=== PATIENT | female | born 1985 | race Caucasian/White ===

== ENCOUNTER 2019-01-28 10:21 | Emergency (ER) | payer OTHER, MEDICAID, SELFPAY ==
[2019-01-28 10:21] VITALS: BP 123/69; PULSE 78; RESP 18; TEMP 37.1; O2SAT 97; BMI 21.3
[2019-01-28 10:30] VITALS: BP 114/75; PULSE 80; RESP 16; O2SAT 97
--- NOTE | 2019-01-28 10:37 | ED.HA ---
HPI - Headache General Chief Complaint: Headache Stated Complaint: Migraine x7 days Time Seen by Provider: 01/28/19 10:35 Source: patient Mode of arrival: ambulatory Limitations: no limitations History of Present Illness HPI Narrative: This is a 33-year-old female comes to the emergency department with complaint of migraine. Patient states that she has had 1 for about 7 days. She tried Imitrex, cold packs, Tylenol as well as ibuprofen without any improvement. Patient states she gets several yearly. She does not see a neurologist. She states her typical pattern, she does have some vomiting with it. She does have some photophobia. She denies any fevers. No weakness, numbness or tingling. No difficulty with movement. Patient denies any chest pain or shortness of breath. No issues with bowel movements or urination. She denies any other medical issues. Denies any surgeries. States she is allergic to Zofran it makes her vomit more as well as sulfa. Related Data Home Medications Medication Instructions Recorded Confirmed buprenorphine-naloxone 1 film SUBLINGUAL BID 01/28/19 01/28/19 gabapentin 300 mg PO TID 01/28/19 01/28/19 hydroxyzine pamoate 25 mg PO BID 01/28/19 01/28/19 mirtazapine 15 mg PO DAILY 01/28/19 01/28/19 Allergies Allergy/AdvReac Type Severity Reaction Status Date / Time ondansetron [From Zofran] Allergy Verified 01/28/19 10:28 Sulfa (Sulfonamide Allergy Verified 01/28/19 10:28 Antibiotics) Review of Systems Review of Systems ROS Unobtainable: All systems reviewed & are unremarkable except as noted in HPI and below Constitutional Denies chills, Denies fever(s), Reports headache(s) and Denies weakness Eyes Denies change in vision and Reports photophobia ENT Ears, Nose, Mouth, and Throat: Reports headache(s) and Denies neck pain Cardiovascular Denies chest pain and Denies dyspnea Respiratory Denies dyspnea Gastrointestinal Gastrointestinal: Denies abdominal pain, Denies change in bowel habits, Denies diarrhea, Reports nausea and Reports vomiting Genitourinary Denies hematuria, Denies urinary frequency, Denies dysuria, Denies flank pain, Denies urinary incontinence and Denies urinary urgency Musculoskeletal Reports as per HPI, Denies abnormal gait, Denies limited range of motion, Denies muscle weakness, Denies neck pain, Denies numbness and Denies tingling Neurologic Reports as per HPI, Denies abnormal gait, Denies confusion, Reports headache(s), Denies focal weakness, Denies numbness, Denies tingling and Denies weakness Psychiatric Denies confusion [facility] Medical History (Updated 01/28/19 @ 11:01 by No Friedman DO) Migraines (Chronic) Social History Smoking Status: Current every day smoker Social History Smoking Status: Current every day smoker Exam Narrative Exam Narrative: GEN: well nourished, well appearing female, alert and oriented x 3, patient appears to be in mild distress. HEENT: Atraumatic, pupils are equal round reactive, extraocular movements are intact, nares are clear, TMs are clear with no fluid, there is no conjunctival pallor. Throat is clear without any exudates, erythema, tonsillar enlargement or uvular deviation HEART: Regular rate and rhythm without murmur, clicks, rubs. LUNGS:Lungs clear to auscultation, no wheezes, rales, crackles, chest moves symmetrically ABD:bowel sounds normal, soft, non-tender, no guarding, rebound, rigidity, no masses noted, no hepatosplenomegaly MSCL: Non-tender, no muscle atrophy, muscles strength 5/5 upper and lower extremities, full range of motion, normal gait NEURO:CN 2-12 intact, sensation normal, reflexes 2/4 upper lower extremities. Initial Vital Signs Initial Vital Signs: Vital Signs Temperature 98.7 F 01/28/19 10:21 Pulse Rate 78 01/28/19 10:21 Respiratory Rate 18 01/28/19 10:21 Blood Pressure 123/69 01/28/19 10:21 Pulse Oximetry 97 01/28/19 10:21 Course Orders Ordered: Discontinued Medications Sodium Chloride (Normal Saline 0.9%) 1,000 mls @ 1,000 mls/hr IV BOLUS ONE Stop: 01/28/19 11:51 Last Infusion: 01/28/19 12:00 Dose: 0 mls/hr Admin: 01/28/19 11:22 Dose: 1,000 mls/hr Ketorolac Tromethamine (Toradol) 30 mg IV NOW ONE Stop: 01/28/19 10:53 Last Admin: 01/28/19 11:24 Dose: 30 mg Metoclopramide HCl (Reglan) 10 mg IV NOW ONE Stop: 01/28/19 10:53 Last Admin: 01/28/19 11:24 Dose: 10 mg Vital Signs - 8 hr 01/28/19 10:21 01/28/19 10:30 01/28/19 11:00 Temperature 98.7 F Pulse Rate 78 80 80 Respiratory Rate 18 16 16 Blood Pressure 123/69 Blood Pressure [Left Arm] 114/75 109/73 Pulse Oximetry 97 97 97 01/28/19 11:08 01/28/19 12:10 Temperature Pulse Rate 73 70 Respiratory Rate 17 16 Blood Pressure 111/79 Blood Pressure [Left Arm] 109/73 Pulse Oximetry 98 100 MDM - Headache Lab Data Point of Care Testing Test Results Negative Urine Dip Bedside Urine Glucose Negative Bedside Urine Bilirubin - Negative Bedside Urine Ketone - Negative Urine Specific Eros 1.025 Bedside Urine Occult Blood - Negative Bedside Urine pH 6 Bedside Urine Protein - Negative Bedside Urine Urobilinogen - Negative Bedside Urine Nitrite - Negative Bedside Urine Leukocytes - Negative Esterase MDM Narrative Medical decision making narrative: Patient requesting to d/c home after medications so that she can go. She has not received medications yet. Discharge Plan Departure Patient Disposition: Home Clinical Impression: Migraine Discharge Date/Time: 01/28/19 12:00 Interventions: ED Discharge Assessment Last Done: 01/28/19 12:10 Instructions: DI for Migraine Activity Restrictions/Additional Instructions: Follow up with primary care physician in the next 2-3 days for recheck. Continue home medications as needed. You may continue home medications as prescribed. Return to the emergency department for fevers greater than 100.4 F, rapidly worsening symptoms, passing out, new vision changes, new weakness, numbness, inability to walk, use her extremities or other new or concerning symptoms. Prescriptions: No Action gabapentin 300 mg capsule 300 mg PO TID RF: 0 mirtazapine 15 mg tablet 15 mg PO DAILY RF: 0 hydroxyzine pamoate 25 mg capsule 25 mg PO BID RF: 0 buprenorphine-naloxone 8-2 mg film 1 film sublingual BID RF: 0
[2019-01-28 11:00] VITALS: BP 109/73; PULSE 80; RESP 16; O2SAT 97
[2019-01-28 11:08] VITALS: BP 109/73; PULSE 73; RESP 17; O2SAT 98
[2019-01-28] MEDS: SODIUM CHLORIDE 0.9% 1,000 ML 1000 ML IV (11:22)
[2019-01-28] MEDS: KETOROLAC 60 MG/2 ML VIAL 30 MG IV (11:24)
[2019-01-28] MEDS: METOCLOPRAMIDE 10 MG/2 ML INJ IV (11:24)
--- NOTE | 2019-01-28 11:27 | PC.NURSE ---
getting all the fluids. dr buchanan aware.
[2019-01-28 12:10] VITALS: BP 111/79; PULSE 70; RESP 16; O2SAT 100
== END 2019-01-28 12:00 | disposition home or self-care (01) ==
PROVIDERS: Emergency Provider Emergency Medicine
DX: G43.909 Migraine, unspecified, not intractable, without status migrainosus (principal)
CPT/HCPCS: 81003; 81025; 96361; 96374; 96375; 99283; 99284; J1885; J2765

== ENCOUNTER 2019-02-25 15:47 | Emergency (ER) | payer OTHER, MEDICAID, SELFPAY ==
[2019-02-25 15:53] VITALS: BP 137/78; PULSE 96; RESP 14; TEMP 36.7; O2SAT 96; BMI 21.2
--- NOTE | 2019-02-25 16:24 | PC.NURSE ---
pt reports she was lifting heavy at work yesterday, woke up this morning with stiff back. took motrin 2hrs [employer] without relief. pt appears well. resting in bed. warm pack applied. watching movie on phone waiting for provider assessment.
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
[2019-02-25] MEDS: KETOROLAC 60 MG/2 ML VIAL IM (18:05)
[2019-02-25] MEDS: CYCLOBENZAPRINE 10 MG TABLET PO (18:05)
--- NOTE | 2019-02-25 18:05 | PC.NURSE ---
Pt OOB to BR with steady gait. pt medicated for pain per MAR. tolerated well. awaiting DC
[2019-02-25] MEDS: LIDOCAINE PATCH 1 EACH ADH..PATCH TOP (19:27)
[2019-02-25 19:42] VITALS: BP 113/64; PULSE 67; RESP 16; TEMP 36.6; O2SAT 98
== END 2019-02-25 19:51 | disposition home or self-care (01) ==
PROVIDERS: Emergency Provider Internal Medicine
DX: S33.5XXA Sprain of ligaments of lumbar spine, initial encounter (principal)
CPT/HCPCS: 96372; 99282; 99283; J1885

== ENCOUNTER 2019-05-18 21:35 | Emergency (ER) | payer OTHER, MEDICAID, SELFPAY ==
[2019-05-18 21:43] VITALS: BP 112/73; PULSE 83; RESP 20; TEMP 36.7; O2SAT 98
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
== END 2019-05-19 00:23 | disposition home or self-care (01) ==
PROVIDERS: Emergency Provider Emergency Medicine
DX: M62.838 Other muscle spasm (principal); R51 Headache; S09.90XA Unspecified injury of head, initial encounter; M54.2 Cervicalgia; V49.49XA Driver injured in collision with other motor vehicles in traffic accident, initial encounter
CPT/HCPCS: 70450; 72125; 81003; 81025; 99282; 99284

== ENCOUNTER 2019-11-05 11:03 | Emergency (ER) | payer OTHER, SELFPAY ==
--- NOTE | 2019-11-05 11:09 | ED.EXTPRO ---
HPI - Extremity Problem General Chief complaint: Extremity Injury, Lower Stated complaint: Hurt Left Foot at work Time Seen by Provider: 11/05/19 11:07 Source: patient Limitations: no limitations History of Present Illness HPI Narrative: This is a 34-year-old female who comes to the emergency department with complaint of left ankle pain. Patient states on Saturday 2 days prior she was getting out of her bosses car when she stepped out of the car and states twisted her ankle. She describes it not as an inversion or eversion injury but more the ankle itself rotated. She states she did get some scrapes on the side of her toe. Patient states since then she has had pain particularly with weight-bearing but even when she is still. She describes it more over the left lateral malleoli region and calf. Patient states that there has been swelling. There has been no ecchymosis, erythema or other skin color changes. Patient does not have any redness or skin changes over the areas of abrasion by her toe. She describes the pain more in the ankle region and not so much in her foot. She has tried ibuprofen with minimal improvement. She is currently on Suboxone. She denies any other medical issues. Denies any prior surgeries. She states she is allergic to codeine, Zofran and sulfa. Related Data Home Medications Medication Instructions Recorded Confirmed gabapentin 300 mg PO TID 01/28/19 09/04/19 hydroxyzine pamoate 25 mg PO BID 01/28/19 09/04/19 [id number] 1 tab PO DIRECTED 02/25/19 09/04/19 [Migraine Relief] buprenorphine-naloxone 2 film SUBLINGUAL BID 02/25/19 09/04/19 doxycycline monohydrate 100 mg PO DAILY 02/25/19 09/04/19 mirtazapine 30 mg PO DAILY 02/25/19 09/04/19 promethazine 12.5 mg PO BID 02/25/19 09/04/19 sumatriptan succinate 100 mg PO DIRECTED 02/25/19 09/04/19 Previous Rx's Medication Instructions Recorded cyclobenzaprine 20 mg PO BEDTIME #14 tab 02/25/19 lidocaine [Lidoderm] 2 patch TOP DAILY #30 each 02/25/19 meloxicam 15 mg PO DAILY #14 tab 02/25/19 Allergies Allergy/AdvReac Type Severity Reaction Status Date / Time codeine Allergy Verified 09/04/19 14:53 ondansetron [From Zofran] Allergy Verified 09/04/19 14:53 Sulfa (Sulfonamide Allergy Verified 09/04/19 14:53 Antibiotics) Review of Systems Review of Systems ROS Unobtainable: All systems reviewed & are unremarkable except as noted in HPI and below Patient History Medical History Chronic back pain (Chronic) Migraines (Chronic) Surgical History No history of previous surgery (Chronic) Social History Smoking Status: Current every day smoker Smoking Status: Current every day smoker alcohol intake frequency: holidays/special occasions only Substance Use Type: does not use Exam Narrative Exam Narrative: GENERAL: Alert and oriented x three, well-nourished female in mild distress. HEENT: Head normocephalic, atraumatic, EOMI, pupils reactive, face symmetric, moist mucous membranes NECK: Supple, full range of motion EXTREMITIES: Normal range of motion, no clubbing positive for edema particularly over the left lateral malleoli, patient has mild to moderate tenderness over the malleoli, no bony tenderness of the foot. Patient does not have any tenderness of the knee or upper thigh. Patient has 2 small 0.5 cm abrasions over the distal 5th metatarsal on the left foot. They are clean dry and intact without any signs of infection. Patient has 2+ dorsalis pedis. Normal sensation throughout. Neurovascularly intact. NEUROLOGICAL: Cranial nerves II through XII grossly intact. Moving all extremities SKIN: Warm, dry, no petechiae, no rashes or lesions other than described above. Initial Vital Signs Initial Vital Signs: Vital Signs Temperature 98 F 11/05/19 11:14 Pulse Rate 74 11/05/19 11:14 Respiratory Rate 16 11/05/19 11:14 Blood Pressure 143/72 H 11/05/19 11:14 Pulse Oximetry 100 11/05/19 11:14 Course Orders Ordered: ED Orders 11/05/19 11:14 XR ankle LT min 3V Stat Vital Signs Vital signs: Vital Signs - 8 hr 11/05/19 11:14 Temperature 98 F Pulse Rate 74 Respiratory Rate 16 Blood Pressure 143/72 H Pulse Oximetry 100 MDM - Extremity (Nontraumatic) Imaging Data left ankle xray: Attestation: I personally reviewed and interpreted this imaging study as follows: My Impression: no fx, normal alignment. Radiologist's Impression: [address] [address] XRay Report Signed Patient: Helio Carrillo MMR#: [id number] : 1985Acct:[id number] Age/Sex: 34 / FDate of Service: 11/05/19 Loc: ED Accession Number: [id number] Procedure: XR ankle LT min 3V Ordering Provider: No Friedman D.O. PROCEDURE: XR ANKLE LT MIN 3V INDICATIONS: left ankle pain, lateral malleoli area, twisted ankle TECHNIQUE: 3 views of the ankle were acquired. COMPARISON: None. FINDINGS: Bones: No fractures or dislocations. Ankle mortise is normally aligned. No suspicious bony lesions. Soft tissues: No tibiotalar joint effusion. Achilles tendon appears normal. IMPRESSION: No fracture. If the patient's symptoms do not improve recommend followup radiographs in 10 days to assess for healing sclerosis/occult injury. Dictated by: Ellis Ibrahim M.D. on 11/05/2019 at 11:46 Approved by: Ellis Ibrahim M.D. on 11/05/2019 at 11:48 [facility] Narrative Medical decision making narrative: xray does not show any new changes. Patient placed in ANGELINE wrap and non-weight bearing with return precautions. Patient and I discussed if continued symptoms then she should return for repeat imaging in 7-10 days unless rapidly worsening. Discharge Plan Departure Patient Disposition: Home Clinical Impression: Ankle sprain Qualifiers: Encounter type: initial encounter Involved ligament of ankle: unspecified ligament Laterality: left Qualified Code(s): S93.402A - Sprain of unspecified ligament of left ankle, initial encounter Abrasion of foot Qualifiers: Encounter type: initial encounter Laterality: left Qualified Code(s): S90.812A - Abrasion, left foot, initial encounter Discharge Date/Time: 11/05/19 11:53 Instructions: DI for Ankle Sprain Activity Restrictions/Additional Instructions: Follow-up for repeat imaging in 7-10 days if your symptoms are not resolving, occasionally there can be a very small or occult fracture that is not visualized until the bone starts to heal. Continue medications as prescribed. Splint Care: Keep splint clean and dry. Elevated affected body part to decrease swelling. OK to use ice pack on the affected body part. Use for 15-20 minutes each time, for 5-6x per day. If you develop worsening pain, numbness, tingling, discoloration of the affected body part, loosen the splint by loosening the ANGELINE wrap, and either see your doctor for an urgent re-assessment, or return to the Emergency Department. Return to the Emergency Department for any new or worsening symptoms. Wound Care: Keep wound(s) clean and dry. Wash daily with soap and water only. Do not use over the counter products (alcohol or peroxide)on the wounds unless instructed by a physician. If wound condition worsens (increased/expanding redness, developing fluid blisters, or worsening pain), either contact your doctor for an urgent re-assessment , or return to the Emergency Department. Return if fever greater than 100.4 Fahrenheit, increased swelling, increasing pain or worsening symptoms such as increased discharge or spreading redness. Prescriptions: No Action gabapentin 300 mg capsule 300 mg PO TID RF: 0 hydroxyzine pamoate 25 mg capsule 25 mg PO BID RF: 0 sumatriptan succinate 100 mg tablet 100 mg PO DIRECTED RF: 0 promethazine 12.5 mg tablet 12.5 mg PO BID RF: 0 doxycycline monohydrate 100 mg capsule 100 mg PO DAILY RF: 0 mirtazapine 30 mg tablet 30 mg PO DAILY RF: 0 Migraine Relief 250-250-65 mg tablet 1 tab PO DIRECTED RF: 0 buprenorphine-naloxone 8-2 mg film 2 film sublingual BID RF: 0 cyclobenzaprine 10 mg tablet 20 mg PO BEDTIME Qty: 14 RF: 0 meloxicam 15 mg tablet 15 mg PO DAILY Qty: 14 RF: 0 lidocaine [Lidoderm] 5 % adhesive patch,medicated 2 patch TOP DAILY Qty: 30 RF: 0 Stand Alone Forms: Work Release Note
[2019-11-05 11:14] VITALS: BP 143/72; PULSE 74; RESP 16; TEMP 36.6; O2SAT 100; BMI 24.7
--- NOTE | 2019-11-05 11:14 | DI.RAD.S_ITS ---
PROCEDURE: XR ANKLE LT MIN 3V INDICATIONS: left ankle pain, lateral malleoli area, twisted ankle TECHNIQUE: 3 views of the ankle were acquired. COMPARISON: None. FINDINGS: Bones: No fractures or dislocations. Ankle mortise is normally aligned. No suspicious bony lesions. Soft tissues: No tibiotalar joint effusion. Achilles tendon appears normal. IMPRESSION: No fracture. If the patient's symptoms do not improve recommend followup radiographs in 10 days to assess for healing sclerosis/occult injury. Dictated by: Ellis Ibrahim M.D. on 11/05/2019 at 11:46 Approved by: Ellis Ibrahim M.D. on 11/05/2019 at 11:48
== END 2019-11-05 11:53 | disposition home or self-care (01) ==
PROVIDERS: Emergency Provider Emergency Medicine
DX: S93.402A Sprain of unspecified ligament of left ankle, initial encounter (principal); S90.812A Abrasion, left foot, initial encounter; Y99.0 Civilian activity done for income or pay
CPT/HCPCS: 73610; 99283

== ENCOUNTER 2020-01-27 00:19 | Emergency (ER) | payer OTHER, MEDICAID, SELFPAY ==
[2020-01-27 00:25] VITALS: BP 120/70; PULSE 77; RESP 15; TEMP 37.1; O2SAT 99; BMI 23.8
--- NOTE | 2020-01-27 01:10 | ED.PREGNANCY ---
HPI - General Chief complaint: OB/Uterine Contractions Stated complaint: 8 weeks cramping pain in stomach, sweaty Time Seen by Provider: 01/27/20 00:58 Source: patient Mode of arrival: Ambulatory Limitations: no limitations History of Present Illness HPI Narrative: 34-year-old at 8 weeks by an LMP of November 25 presents with 2 weeks of significant vomiting 1 week of increasing left lower quadrant pain. The pain is described as cramping does not change with position or bowel movement. She does not describe any diarrhea or constipation. No dysuria or hematuria. No vaginal discharge. She has not yet had an ultrasound to confirm intrauterine . Related Data Home Medications Medication Instructions Recorded Confirmed gabapentin 300 mg PO TID 01/28/19 09/04/19 hydroxyzine pamoate 25 mg PO BID 01/28/19 09/04/19 [id number] 1 tab PO DIRECTED 02/25/19 09/04/19 [Migraine Relief] buprenorphine-naloxone 2 film SUBLINGUAL BID 02/25/19 09/04/19 doxycycline monohydrate 100 mg PO DAILY 02/25/19 09/04/19 mirtazapine 30 mg PO DAILY 02/25/19 09/04/19 promethazine 12.5 mg PO BID 02/25/19 09/04/19 sumatriptan succinate 100 mg PO DIRECTED 02/25/19 09/04/19 Previous Rx's Medication Instructions Recorded cyclobenzaprine 20 mg PO BEDTIME #14 tab 02/25/19 lidocaine [Lidoderm] 2 patch TOP DAILY #30 each 02/25/19 meloxicam 15 mg PO DAILY #14 tab 02/25/19 metoclopramide HCl 10 mg PO Q6H PRN #30 tab 01/27/20 Allergies Allergy/AdvReac Type Severity Reaction Status Date / Time codeine Allergy Verified 09/04/19 14:53 ondansetron [From Zofran] Allergy Verified 09/04/19 14:53 Sulfa (Sulfonamide Allergy Verified 09/04/19 14:53 Antibiotics) Review of Systems Review of Systems Narrative: Pertinent positive and negative findings as per HPI Remainder of review of systems is otherwise unremarkable for Constitutional: Fevers, chills, weakness ENT: No sore throat, neck pain, ear pain CV: Chest pain, palpitations, dyspnea on exertion Respiratory: Cough, wheeze, dyspnea : Dysuria, hematuria, flank pain MS: Muscle weakness, numbness, joint swelling or warmth Skin: Rashes, nonhealing lesions Neuro: Syncope, dizziness, tingling PMFSH - Past Medical History Medical history: Reports no medical history Surgical history: Reports Exam Narrative Exam Narrative: General: Alert appropriate in no acute distress Respiratory: Able to speak in full sentences, no obvious respiratory distress Cardiac: Regular rate and rhythm, no murmurs Skin: No obvious rashes, warm and dry Neurologic: Grossly intact no obvious asymmetries or abnormalities Psych, appropriate insight and affect, cooperative Bedside ultrasound: Intrauterine fetus with heartbeat in the 150-160 range. [place]-rump length measures 8 weeks 4 days, gestational sac measures 9 week 1 day, both consistent with LMP putting her at 8 weeks 6 days. No obvious adnexal masses are appreciated Initial Vital Signs Initial Vital Signs: Vital Signs Temperature 98.8 F 01/27/20 00:25 Pulse Rate 77 01/27/20 00:25 Respiratory Rate 15 01/27/20 00:25 Blood Pressure 120/70 01/27/20 00:25 Pulse Oximetry 99 01/27/20 00:25 Course Orders Ordered: ED Orders 01/27/20 01:30 Complete Blood Count AUTO DIFF Stat Comprehensive Metabolic Panel Stat 01/27/20 01:50 Urinalysis and Microscopic Stat Discontinued Medications Sodium Chloride (Normal Saline 0.9%) 1,000 mls @ 1,000 mls/hr IV BOLUS ONE Stop: 01/27/20 02:13 Last Infusion: 01/27/20 02:50 Dose: 0 mls/hr Documented by: Admin: 01/27/20 01:36 Dose: 1,000 mls/hr Documented by: LIZBETH Metoclopramide HCl (Reglan) 10 mg IV NOW ONE Stop: 01/27/20 01:15 Last Admin: 01/27/20 01:36 Dose: 10 mg Documented by: LIZBETH Vital Signs Vital signs: Vital Signs - 8 hr 01/27/20 00:25 01/27/20 01:30 01/27/20 02:31 Temperature 98.8 F Pulse Rate 77 70 79 Respiratory Rate 15 16 16 Blood Pressure 120/70 113/61 117/58 L Pulse Oximetry 99 97 96 MDM - OB/Uterine Contractions Medical Records Attestation: I reviewed the patient's medical records. Lab Data Attestation: I reviewed the patient's lab results. Result diagrams: 01/27/20 01:30 01/27/20 01:30 Labs: Lab Results 01/27/20 01/27/20 01/27/20 Range/Units 01:30 01:30 01:50 WBC 9.8 (4.5-11.0) X10^3/uL RBC 3.63 L (4.0-5.2) X10^6/uL Hgb 11.1 L (12.0-16.0) g/dL Hct 32.5 L (36-46) % MCV 89.4 (80-100) fL MCH 30.6 (26-34) PG MCHC 34.2 (30-36) % RDW 12.9 (11.6-14.8) % Plt Count 152 (150-400) X10^3/uL Neut % (Auto) 55.2 (50-75) % Lymph % (Auto) 32.5 (25-40) % [place] % (Auto) 10.3 (3-14) % Eos % (Auto) 1.2 L (2-4) % Baso % (Auto) 0.8 (0-2) % Neut # (Auto) 5400 (4093-1206) /uL Lymph # (Auto) 3200 (3613-7852) /uL [place] # (Auto) 1000 H (0-900) /uL Eos # (Auto) 100 (0-450) /uL Baso # (Auto) 100 (0-100) /uL Sodium 137 (137-145) mmol/L Potassium 3.5 (3.4-5.1) mmol/L Chloride 104 (98-107) mmol/L Carbon Dioxide 27 (22-32) mmol/L BUN 12 (7-17) mg/dL Creatinine 0.55 (0.52-1.04) mg/dL Estimated GFR > 60.0 (>60) mL/min BUN/Creatinine Ratio 21.8 (6-22) Glucose 87 (70-100) mg/dL Calcium 9.4 (8.4-10.2) mg/dL Total Bilirubin 0.3 (0.2-1.3) mg/dL AST 23 (14-36) IU/L ALT 14 (<35) IU/L Alkaline Phosphatase 49 (38-126) U/L Total Protein 6.9 (6.3-8.2) g/dL Albumin 4.0 (3.5-5.0) g/dL Globulin 2.9 (1.7-4.1) g/dL Albumin/Globulin Ratio 1.4 (1.0-2.8) Urine Color Yellow Urine Appearance Sl cloudy Urine pH 6.0 (4.5-8.0) Ur Specific [place] 1.025 (1.000-1.035) Urine Protein Negative (Negative) Urine Glucose (UA) Negative (Negative) g/dL Urine Ketones Negative (NEGATIVE) Urine Occult Blood Negative (Negative) Urine Nitrate Negative (Negative) Urine Bilirubin Negative (NEGATIVE) Urine Urobilinogen 0.2 (0.2) E.U./dL Ur Leukocyte Esterase Negative (NEGATIVE) Urine RBC None seen (0-5/HPF) Urine WBC None seen (0-5/HPF) Ur Squamous Epith Cells 5-10 /hpf H (0-5/HPF) Amorphous Sediment 1+ Urine Bacteria Moderate (10-30) H (None) Ur Culture Indicated? Cult not indicated MDM Narrative Medical decision making narrative: 34-year-old woman with left pelvic cramping and and 8 and half week intrauterine viable fetus. No signs of infection (diverticulitis or UTI), ectopic , ovarian torsion or other significant pathology at this time. She is feeling better with a L of fluid and IV Reglan. Requests prescription of Reglan to have available at home to help with -related nausea. Should she develop fevers, additional pain cramping or vaginal discharge I encouraged her to either return to the emergency department or follow-up with her primary care physician. Discharge Plan Departure Patient Disposition: Home Clinical Impression: Pelvic pain, Nausea and vomiting during Intrauterine normal Qualifiers: Trimester: first trimester Qualified Code(s): Z34.91 - Encounter for supervision of normal , unspecified, first trimester Discharge Date/Time: 01/27/20 02:53 Instructions: DI for -- Discomforts and Remedies Activity Restrictions/Additional Instructions: Thank you for coming in today Bedside ultrasound shows a happy baby growing appropriately with a nice heartbeat in your uterus. Lab work was reassuring. I did not see any evidence for infection of any kind. It is okay to use Tylenol to help cover up the pain. I have given you a prescription for Reglan to help with -related nausea. This prescription has been electronically transmitted to [facility] for you to pick up attendant later today. If you have fevers, increasing pain, bleeding from your rectum, vaginal discharge, dysuria or other concerning signs it would be very appropriate to follow-up here at the emergency department or contact your provider. I hope the rest of this goes well I wish you the best Prescriptions: New metoclopramide HCl 10 mg tablet 10 mg PO Q6H PRN (Reason: nausea and vomiting) Qty: 30 RF: 0 No Action gabapentin 300 mg capsule 300 mg PO TID RF: 0 hydroxyzine pamoate 25 mg capsule 25 mg PO BID RF: 0 sumatriptan succinate 100 mg tablet 100 mg PO DIRECTED RF: 0 promethazine 12.5 mg tablet 12.5 mg PO BID RF: 0 doxycycline monohydrate 100 mg capsule 100 mg PO DAILY RF: 0 mirtazapine 30 mg tablet 30 mg PO DAILY RF: 0 Migraine Relief 250-250-65 mg tablet 1 tab PO DIRECTED RF: 0 buprenorphine-naloxone 8-2 mg film 2 film sublingual BID RF: 0 cyclobenzaprine 10 mg tablet 20 mg PO BEDTIME Qty: 14 RF: 0 meloxicam 15 mg tablet 15 mg PO DAILY Qty: 14 RF: 0 lidocaine [Lidoderm] 5 % adhesive patch,medicated 2 patch TOP DAILY Qty: 30 RF: 0
[2020-01-27 01:30] VITALS: BP 113/61; PULSE 70; RESP 16; O2SAT 97
[2020-01-27] MEDS: SODIUM CHLORIDE 0.9% 1,000 ML 1000 ML IV (01:36)
[2020-01-27] MEDS: METOCLOPRAMIDE 10 MG/2 ML INJ IV (01:36)
[2020-01-27 01:45] LABS: Add Manual Diff / Slide Review NO; Basophils Absolute Auto 100 /uL (0-100); Basophils Percent Auto 0.8 % (0-2); Eosinophils Absolute Auto 100 /uL (0-450); Eosinophils Percent Auto 1.2 % (2-4); Hematocrit 32.5 % (36-46); Hemoglobin 11.1 g/dL (12.0-16.0); Lymphocytes Absolute Auto 3200 /uL (1100-4500); Lymphocytes Percent Auto 32.5 % (25-40); Mean Corpuscular HGB Conc 34.2 % (30-36); Mean Corpuscular Hemoglobin 30.6 PG (26-34); Mean Corpuscular Volume 89.4 fL (80-100); Monocytes Absolute Auto 1000 /uL (0-900); Monocytes Percent Auto 10.3 % (3-14); Neutrophils Absolute Auto 5400 /uL (1500-7000); Neutrophils Percent Auto 55.2 % (50-75); Platelet Count 152 X10^3/uL (150-400); Red Blood Cell Count 3.63 X10^6/uL (4.0-5.2); Red Cell Distribution Width 12.9 % (11.6-14.8); White Blood Cell Count 9.8 X10^3/uL (4.5-11.0)
[2020-01-27 01:48] LABS: Alanine Aminotransferase 14 IU/L (<35); Albumin Globulin Ratio 1.4 (1.0-2.8); Alkaline Phosphatase 49 U/L (38-126); Aspartate Aminotransferase 23 IU/L (14-36); BUN Creatinine Ratio 21.8 (6-22); Bilirubin Total 0.3 mg/dL (0.2-1.3); Blood Urea Nitrogen 12 mg/dL (7-17); Calcium 9.4 mg/dL (8.4-10.2); Carbon Dioxide 27 mmol/L (22-32); Chloride 104 mmol/L (98-107); Estimated Glomerular Filt Rate > 60.0 mL/min (>60); Globulin 2.9 g/dL (1.7-4.1); Glucose 87 mg/dL (70-100); HEMOLYSIS < 15 (0-50); Potassium 3.5 mmol/L (3.4-5.1); Sodium 137 mmol/L (137-145); Total Protein 6.9 g/dL (6.3-8.2)
[2020-01-27 01:56] LABS: RBC Urine None Seen (0-5/HPF); WBC Urine None Seen (0-5/HPF)
[2020-01-27 01:58] LABS: Appearance Urine UA SL CLOUDY; Bilirubin Urine UA NEGATIVE (NEGATIVE); Color Urine UA YELLOW; Glucose Urine UA NEGATIVE (Negative); Ketones Urine UA NEGATIVE (NEGATIVE); Leukocyte Esterase Urine UA NEGATIVE (NEGATIVE); Nitrite Urine UA NEGATIVE (Negative); Occult Blood Urine UA NEGATIVE (Negative); Protein Urine UA NEGATIVE (Negative); Specific Gravity Urine UA 1.025 (1.000-1.035); Urobilinogen Urine UA 0.2 E.U./dL (0.2)
[2020-01-27 02:06] LABS: Amorphous Sediment Urine 1+; Bacteria Urine Moderate (10-30); Squamous Epithelial Cell Urine 5-10 /HPF (0-5/HPF)
[2020-01-27 02:07] LABS: Culture Indicated Urine Cult Not Indicated
[2020-01-27 02:31] VITALS: BP 117/58; PULSE 79; RESP 16; O2SAT 96
== END 2020-01-27 02:53 | disposition home or self-care (01) ==
PROVIDERS: Emergency Provider Emergency Medicine
DX: O21.9 Vomiting of pregnancy, unspecified (principal); R10.2 Pelvic and perineal pain; Z3A.08 8 weeks gestation of pregnancy
CPT/HCPCS: 36415; 80053; 81001; 85025; 96361; 96374; 99284; J2765

== ENCOUNTER 2020-03-14 18:40 | Emergency (ER) | payer OTHER, MEDICAID, SELFPAY ==
[2020-03-14 18:42] VITALS: BP 113/56; PULSE 98; RESP 16; TEMP 36.6; O2SAT 98; BMI 24.7
--- NOTE | 2020-03-14 18:50 | PC.NURSE ---
Seen by FIELD REPRESENTATIVES DIRECTOR Wilbert and discharged from Triage.
--- NOTE | 2020-03-15 01:28 | ED_ITS ---
HPI - Recheck/Abnormal Lab/Rx <BRENDA Mcdonald - Last Filed: 03/15/20 01:42> General Chief Complaint: Recheck/Abnormal Lab/Rx Stated Complaint: IV THERAPHY BUBBLES IN VEINS Time Seen by Provider: 03/14/20 18:43 Source: patient Mode of arrival: Ambulatory Limitations: no limitations History of Present Illness HPI narrative: This is a 34 year female, smoker, who is currently with EGA of 15 weeks with with emesis gravidarum and receives home therapy of IVF banana bag through IV pump presents to ED with significant other with concerns with air bubbles in venous system. She reports IV pump had alarming that air in the IV pump. She noticed backed up blood in near IV insertion site in the tubing with clear IV fluid. She had to use 3 NS flushes to clear the tubing to remove back up blood after disconnected IV tubing. She denies chest pain, breathing difficulty, or any unusual sensation or discomfort. Related Data Home Medications Medication Instructions Recorded Confirmed gabapentin 300 mg PO TID 01/28/19 09/04/19 hydroxyzine pamoate 25 mg PO BID 01/28/19 09/04/19 [id number] 1 tab PO DIRECTED 02/25/19 09/04/19 [Migraine Relief] buprenorphine-naloxone 2 film SUBLINGUAL BID 02/25/19 09/04/19 doxycycline monohydrate 100 mg PO DAILY 02/25/19 09/04/19 mirtazapine 30 mg PO DAILY 02/25/19 09/04/19 promethazine 12.5 mg PO BID 02/25/19 09/04/19 sumatriptan succinate 100 mg PO DIRECTED 02/25/19 09/04/19 Previous Rx's Medication Instructions Recorded cyclobenzaprine 20 mg PO BEDTIME #14 tab 02/25/19 lidocaine [Lidoderm] 2 patch TOP DAILY #30 each 02/25/19 meloxicam 15 mg PO DAILY #14 tab 02/25/19 metoclopramide HCl 10 mg PO Q6H PRN #30 tab 01/27/20 Allergies Allergy/AdvReac Type Severity Reaction Status Date / Time codeine Allergy Verified 03/14/20 18:47 ondansetron [From Zofran] Allergy Verified 03/14/20 18:47 Sulfa (Sulfonamide Allergy Verified 03/14/20 18:47 Antibiotics) Review of Systems <BRENDA Mcdonald - Last Filed: 03/15/20 01:42> Review of Systems Narrative: General: Denies fever, chills, fatigue, malaise, sweats. HEENT: Denies sinus pain, ear pain, sore throat, difficulty swallowing, dizziness. Respiratory: Denies dyspnea, cough, wheezing, hemoptysis, sputum. Cardiovascular: Denies chest pain, palpitations, orthopnea, edema. Gastrointestinal: Denies nausea, vomiting, abdominal pain, diarrhea, constipation, melena. : Denies dysuria, frequency, incontinence, hematuria, urinary retention. Musculoskeletal: Denies weakness, joint pain or bony pain. Skin: Denies rash, skin lesions, or other. Neurologic: Denies weakness, headache, numbness, change in speech, confusion, seizures, incoordination. Psychiatric: No concerning psychosocial issues. 12-point review of systems is negative except for those stated above. Patient History <BRENDA Mcdonald - Last Filed: 03/15/20 01:42> Medical History Chronic back pain (Chronic) Migraines (Chronic) Surgical History No history of previous surgery (Chronic) Social History Smoking Status: Current every day smoker Smoking Status: Current every day smoker alcohol intake frequency: holidays/special occasions only Substance Use Type: marijuana Exam <BRENDA Mcdonald - Last Filed: 03/15/20 01:42> Narrative Exam Narrative: General appearance: well developed, well nourished, in no acute distress. Head: normocephalic, atraumatic, no scalp lesions, non-tender. ENT: Hearing grossly intact. Nose without bleeding, purulent discharge. Airway patent. Neck/Thyroid: neck supple, full range of motion, no visible masses or meningeal signs. No JVD, non-tender without lymphadenopathy. Skin: no suspicious rashes, lesions over visible areas. Warm and dry and appropriate color for ethnicity. Heart: no clubbing, no cyanosis, no edema. S1 and S2 normal. RRR w/o murmurs, clicks, or bruits. Lungs: Breathing even and unlabored. No stridor. No accessory muscles used. Able to speak in full sentences. Lungs clear to auscultate in all lobes. Chest: normal shape and expansion. Abdomen: non-obese, non-distended. Nontender to palpate in all quadrant. Neurologic: alert and oriented. 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 Psych: good eye contact, normal affect. Initial Vital Signs Initial Vital Signs: Vital Signs Temperature 97.8 F 03/14/20 18:42 Pulse Rate 98 H 03/14/20 18:42 Respiratory Rate 16 03/14/20 18:42 Blood Pressure 113/56 L 03/14/20 18:42 Pulse Oximetry 98 03/14/20 18:42 <Dario Diggs DO - Last Filed: 03/15/20 01:57> Initial Vital Signs Initial Vital Signs: Vital Signs Temperature 97.8 F 03/14/20 18:42 Pulse Rate 98 H 03/14/20 18:42 Respiratory Rate 16 03/14/20 18:42 Blood Pressure 113/56 L 03/14/20 18:42 Pulse Oximetry 98 03/14/20 18:42 Scores <BRENDA Mcdonald - Last Filed: 03/15/20 01:42> GCS [place] coma scale eye opening: Spontaneous [place] coma scale verbal response: Orientated [place] coma scale motor response: [place] commands [place] coma scale total score: 15 Course <BRENDA Mcdonald - Last Filed: 03/15/20 01:42> Vital Signs Vital signs: Vital Signs - 8 hr 03/14/20 18:42 Temperature 97.8 F Pulse Rate 98 H Respiratory Rate 16 Blood Pressure 113/56 L Pulse Oximetry 98 <DO Jorge Durbin Last Filed: 03/15/20 01:57> Vital Signs Vital signs: Vital Signs - 8 hr 03/14/20 18:42 Temperature 97.8 F Pulse Rate 98 H Respiratory Rate 16 Blood Pressure 113/56 L Pulse Oximetry 98 MDM - Recheck/Abnormal Lab/Rx <BRENDA Mcdonald Last Filed: 03/15/20 01:42> Differential Diagnosis Differential diagnosis: Likely other (Encounter for exam after IVPump warning for air in the line) Medical Records Attestation: I reviewed the patient's medical records. MDM Narrative Medical decision making narrative: Note chief complain at this time. It is unlikely patient had received much of air or air bubbles through IV line since there was back up blood with clear liquid at the end of IV insertion and connector went IV tubing was disconnected after the infusion and IV pump alarming. She was assured with physical finding and incident findings and description by the patient. Discussed return precautions with patient and patient verbalized understanding in agreement with the treatment plan. Discharge Plan Departure Patient Disposition: Home Clinical Impression: Encounter for medical assessment Discharge Date/Time: 03/14/20 19:12 Activity Restrictions/Additional Instructions: You have been diagnosed with [normal findings with IV pump alarm for air in the line. No symptoms now and it is assuring that IV J lube was filled with blood and fluid.]. What to do: *Take your medications as directed. *Follow up with your primary care provider in 2-3 days, call for an appointment. Let them know you were seen in the ED and that we asked you to be seen in follow up. *Return to ED if you have any new, worsening, or concerning symptoms, such as [chest pain, breathing difficulty, unusual behaviors, headache, unable to tolerate fluids or any acute concerns]. Prescriptions: No Action gabapentin 300 mg capsule 300 mg PO TID RF: 0 hydroxyzine pamoate 25 mg capsule 25 mg PO BID RF: 0 sumatriptan succinate 100 mg tablet 100 mg PO DIRECTED RF: 0 promethazine 12.5 mg tablet 12.5 mg PO BID RF: 0 doxycycline monohydrate 100 mg capsule 100 mg PO DAILY RF: 0 mirtazapine 30 mg tablet 30 mg PO DAILY RF: 0 Migraine Relief 250-250-65 mg tablet 1 tab PO DIRECTED RF: 0 buprenorphine-naloxone 8-2 mg film 2 film sublingual BID RF: 0 cyclobenzaprine 10 mg tablet 20 mg PO BEDTIME Qty: 14 RF: 0 meloxicam 15 mg tablet 15 mg PO DAILY Qty: 14 RF: 0 lidocaine [Lidoderm] 5 % adhesive patch,medicated 2 patch TOP DAILY Qty: 30 RF: 0 metoclopramide HCl 10 mg tablet 10 mg PO Q6H PRN (Reason: nausea and vomiting) Qty: 30 RF: 0 Referrals: Marge Brooks [Non-Staff] - <Dario Diggs, - Last Filed: 03/15/20 01:57> Cosign ED Attending Cosignature Attestation: Dr Diggs Co-Sign Statement: I was available for consultation during this patient's emergency department visit. This chart is signed by myself for administrative purposes only. I did not have direct contact with this patient during this visit. They were seen independently by the APC.
== END 2020-03-14 19:12 | disposition home or self-care (01) ==
PROVIDERS: Emergency Provider Nurse Practitioner Family
DX: O26.892 Other specified pregnancy related conditions, second trimester (principal); Z3A.15 15 weeks gestation of pregnancy
CPT/HCPCS: 99281

== ENCOUNTER 2020-04-01 14:25 | Emergency (ER) | payer OTHER, MEDICAID, SELFPAY ==
[2020-04-01 14:27] VITALS: BP 118/65; PULSE 108; RESP 16; O2SAT 98; BMI 25.2
[2020-04-01 14:35] VITALS: TEMP 36.7
--- NOTE | 2020-04-01 20:38 | ED_ITS ---
HPI - Wound/Laceration <LATASHA Greco - Last Filed: 04/01/20 20:41> General Chief Complaint: Wound/Laceration Stated Complaint: injured right hand at work Time Seen by Provider: 04/01/20 15:12 Source: patient Mode of arrival: Ambulatory Limitations: no limitations History of Present Illness HPI narrative: The patient is a 34-year-old female who presents with a chief complaint of a wound to her right hand sustained at work with a broken improved. Tetanus is up-to-date. She states it is small, would prefer not to have sutures. She is 18.5 weeks . She is not concerned about a retained body. She has full range of motion of her hand. Related Data Home Medications Medication Instructions Recorded Confirmed gabapentin 300 mg PO TID 01/28/19 09/04/19 hydroxyzine pamoate 25 mg PO BID 01/28/19 09/04/19 ceqidgf-nhyhfgicblasz-kyshvucf 1 tab PO DIRECTED 02/25/19 09/04/19 [Migraine Relief] buprenorphine-naloxone 2 film SUBLINGUAL BID 02/25/19 09/04/19 doxycycline monohydrate 100 mg PO DAILY 02/25/19 09/04/19 mirtazapine 30 mg PO DAILY 02/25/19 09/04/19 promethazine 12.5 mg PO BID 02/25/19 09/04/19 sumatriptan succinate 100 mg PO DIRECTED 02/25/19 09/04/19 Previous Rx's Medication Instructions Recorded cyclobenzaprine 20 mg PO BEDTIME #14 tab 02/25/19 lidocaine [Lidoderm] 2 patch TOP DAILY #30 each 02/25/19 meloxicam 15 mg PO DAILY #14 tab 02/25/19 metoclopramide HCl 10 mg PO Q6H PRN #30 tab 01/27/20 Allergies Allergy/AdvReac Type Severity Reaction Status Date / Time codeine Allergy Verified 04/01/20 14:32 ondansetron [From Zofran] Allergy Verified 04/01/20 14:32 Sulfa (Sulfonamide Allergy Verified 04/01/20 14:32 Antibiotics) Review of Systems <LATASHA Greco - Last Filed: 04/01/20 20:41> Review of Systems Narrative: GENERAL: Denies chills, fatigue, malaise, fever, sweats. HEENT: Denies sinus pain, ear pain, sore throat, difficulty swallowing, dizziness. RESPIRATORY: Denies dyspnea, cough, wheezing, hemoptysis, sputum. CARDIOVASCULAR: Denies chest pain, palpitations, orthopnea, edema, GASTROINTESTINAL: Denies nausea, vomiting, abdominal pain, diarrhea, constipation, melena. : Denies dysuria, frequency, incontinence, hematuria, urinary retention. MUSCULOSKELETAL: See HPI SKIN: See HPI NEUROLOGIC: Denies weakness, headache, numbness, change in speech, confusion, seizures, incoordination. PSYCHIATRIC: No concerning psychosocial issues. 12 point review of systems is negative except for those stated above Patient History <LATASHA Greco - Last Filed: 04/01/20 20:41> Medical History (Updated 04/01/20 @ 16:25 by LATASHA Greco) Chronic back pain (Chronic) Migraines (Chronic) Surgical History No history of previous surgery (Chronic) Social History Smoking Status: Current every day smoker Smoking Status: Current every day smoker tobacco type: cigarettes alcohol intake frequency: 0-2 drinks per day Substance Use Type: marijuana Exam <LATASHA Greco - Last Filed: 04/01/20 20:41> Narrative Exam Narrative: GENERAL: This is a well-nourished, well-developed patient, in mild distress. HEAD: Atraumatic. Normocephalic. No temporal or scalp tenderness. EYES: Pupils equal round and reactive. Extraocular motions intact. No scleral icterus. No injection or drainage. ENT: Nose without bleeding, purulent drainage or septal hematoma. Wearing a mask. Airway patent. NECK: Trachea midline. No JVD or lymphadenopathy. Supple, nontender, no meningeal signs. CARDIOVASCULAR: Regular rate and rhythm RESPIRATORY no cough. No increased respiratory effort. No accessory muscle us e. EXTREMITIES: Skin exam as noted. Full range of motion noted all fingers. Capillary refill less than 2 seconds all fingers right hand. Positive right radial pulse. BACK: Nontender without deformity or crepitance. No flank tenderness. NEURO: AOx3. SKIN: 0.25 cm puncture wound noted on right palm, in between 1st and 2nd digits. No visible foreign bodies, through dermis, linear well-approximated edges. Initial Vital Signs Initial Vital Signs: Vital Signs Pulse Rate 108 H 04/01/20 14:27 Respiratory Rate 16 04/01/20 14:27 Blood Pressure 118/65 04/01/20 14:27 Pulse Oximetry 98 04/01/20 14:27 <Michelle Farah MD - Last Filed: 04/08/20 23:59> Initial Vital Signs Initial Vital Signs: Vital Signs Pulse Rate 108 H 04/01/20 14:27 Respiratory Rate 16 04/01/20 14:27 Blood Pressure 118/65 04/01/20 14:27 Pulse Oximetry 98 04/01/20 14:27 Procedures <LATASHA Greco - Last Filed: 04/01/20 20:41> Laceration Repair Laceration 1: Site: hand Side (If applicable): right Size (cm): 0.25 Description: linear Depth: simple, single layer Pre-repair: wound explored, irrigated extensively (Cleansed with Hibiclens) and deep structures intact Skin layer closed with: steri-strips Scores <LATASHA Greco - Last Filed: 04/01/20 20:41> GCS [place] coma scale eye opening: Spontaneous [place] coma scale verbal response: Orientated [place] coma scale motor response: Obey commands [place] coma scale total score: 15 Course <LATASHA Greco - Last Filed: 04/01/20 20:41> Vital Signs Vital signs: Vital Signs - 8 hr 04/01/20 14:27 04/01/20 14:35 Temperature 98.1 F Pulse Rate 108 H Respiratory Rate 16 Blood Pressure 118/65 Pulse Oximetry 98 <Michelle Farah MD - Last Filed: 04/08/20 23:59> Vital Signs Vital signs: Vital Signs - 8 hr 04/01/20 14:27 04/01/20 14:35 Temperature 98.1 F Pulse Rate 108 H Respiratory Rate 16 Blood Pressure 118/65 Pulse Oximetry 98 MDM - Wound/Laceration <LATASHA Greco - Last Filed: 04/01/20 20:41> MDM Narrative Medical decision making narrative: The patient is a 34-year-old female who presents with a chief complaint of a laceration to her right hand. He does small laceration, closed by Steri-Strips. Patient elects Steri-Strips over sutu res. Small wound, so I think this is acceptable. Her tetanus is up-to-date, she declines an x-ray, wound was cleansed copiously with Hibiclens. I discussed at length resting her right hand, monitoring for signs symptoms of infection such as extending redness and follow up with primary care provider Labor and distress provider. Patient has no questions or concerns upon discharge and states understanding return precautions as well as follow-up care. She did decline x-ray in the emergency department. Discharge Plan Departure Patient Disposition: Home Clinical Impression: Laceration Discharge Date/Time: 04/01/20 16:32 Instructions: DI for Laceration Repair-Skin Closure Strips, DI for Puncture Wound Activity Restrictions/Additional Instructions: Thank you for trusting us with your care today. As discussed, we elected to close your wound with Steri-Strips. Please monitor for signs and symptoms of infection such as extending redness, purulent drainage and fever. Please follow up with these occur. I have given you a work note for light duty with your right hand. Please keep your right hand clean and dry. Do not submerge into dirty water such as dishwater, [place] water etcetera as this can increase her chance of infection You can contact Labor and [facility] and they can help arrange follow-up for you. Please come back to emergency department for any acute concerns. Prescriptions: No Action gabapentin 300 mg capsule 300 mg PO TID RF: 0 hydroxyzine pamoate 25 mg capsule 25 mg PO BID RF: 0 sumatriptan succinate 100 mg tablet 100 mg PO DIRECTED RF: 0 promethazine 12.5 mg tablet 12.5 mg PO BID RF: 0 doxycycline monohydrate 100 mg capsule 100 mg PO DAILY RF: 0 mirtazapine 30 mg tablet 30 mg PO DAILY RF: 0 Migraine Relief 250-250-65 mg tablet 1 tab PO DIRECTED RF: 0 buprenorphine-naloxone 8-2 mg film 2 film sublingual BID RF: 0 cyclobenzaprine 10 mg tablet 20 mg PO BEDTIME Qty: 14 RF: 0 meloxicam 15 mg tablet 15 mg PO DAILY Qty: 14 RF: 0 lidocaine [Lidoderm] 5 % adhesive patch,medicated 2 patch TOP DAILY Qty: 30 RF: 0 metoclopramide HCl 10 mg tablet 10 mg PO Q6H PRN (Reason: nausea and vomiting) Qty: 30 RF: 0 Stand Alone Forms: Work Release Note <Michelle Farah MD - Last Filed: 04/08/20 23:59> Cosign ED Attending Cosignature Attestation: I was immediately available in the department for consultation throughout this patient's visit. I agree with documentation as above. Michelle Farah MD
== END 2020-04-01 16:32 | disposition home or self-care (01) ==
PROVIDERS: Emergency Provider Nurse Practitioner Family
DX: S61.411A Laceration without foreign body of right hand, initial encounter (principal); W26.8XXA Contact with other sharp object(s), not elsewhere classified, initial encounter; Y99.0 Civilian activity done for income or pay
CPT/HCPCS: 99281

== ENCOUNTER → 2020-04-17 16:06 | Outpatient (ROUT) | payer OTHER, MEDICAID, SELFPAY ==
[2020-04-17 16:16] LABS: Add Manual Diff / Slide Review NO; Basophils Absolute Auto 100 /uL (0-100); Basophils Percent Auto 0.6 % (0-2); Eosinophils Absolute Auto 200 /uL (0-450); Eosinophils Percent Auto 1.9 % (2-4); Hematocrit 31.2 % (36-46); Hemoglobin 10.6 g/dL (12.0-16.0); Lymphocytes Absolute Auto 2500 /uL (1100-4500); Lymphocytes Percent Auto 22.7 % (25-40); Mean Corpuscular HGB Conc 33.8 % (30-36); Mean Corpuscular Hemoglobin 30.9 PG (26-34); Mean Corpuscular Volume 91.4 fL (80-100); Monocytes Absolute Auto 900 /uL (0-900); Monocytes Percent Auto 8.1 % (3-14); Neutrophils Absolute Auto 7300 /uL (1500-7000); Neutrophils Percent Auto 66.7 % (50-75); Platelet Count 196 X10^3/uL (150-400); Red Blood Cell Count 3.41 X10^6/uL (4.0-5.2); Red Cell Distribution Width 13.6 % (11.6-14.8); White Blood Cell Count 10.9 X10^3/uL (4.5-11.0)
[2020-04-17 16:21] LABS: Alanine Aminotransferase 31 IU/L (<35); Albumin 3.6 g/dL (3.5-5.0); Albumin Globulin Ratio 1.1 (1.0-2.8); Alkaline Phosphatase 51 U/L (38-126); Aspartate Aminotransferase 66 IU/L (14-36); Bilirubin Total 0.6 mg/dL (0.2-1.3); Blood Urea Nitrogen 9 mg/dL (7-17); Calcium 8.8 mg/dL (8.4-10.2); Carbon Dioxide 23 mmol/L (22-32); Chloride 107 mmol/L (98-107); Estimated Glomerular Filt Rate > 60.0 mL/min (>60); Globulin 3.2 g/dL (1.7-4.1); Glucose 76 mg/dL (70-100); Magnesium 1.9 mg/dL (1.6-2.3); Potassium 5.3 mmol/L (3.4-5.1); Sodium 133 mmol/L (137-145); Total Protein 6.8 g/dL (6.3-8.2)
[2020-04-17 16:23] LABS: HEMOLYSIS 110 (0-50)
== END ==
PROVIDERS: Visit Provider Nurse Practitioner Women's Health
DX: O21.1 Hyperemesis gravidarum with metabolic disturbance (principal)
CPT/HCPCS: 80053; 83735; 84100; 85025

== ENCOUNTER 2021-01-13 03:09 | Emergency (ER) | payer OTHER, MEDICAID, SELFPAY ==
[2021-01-13] VITALS (7 sets, daily range): BP systolic 125–179; BP diastolic 60–86; PULSE 67–85; RESP 9–20; TEMP 36.3; O2SAT 95–99; BMI 28.3
--- NOTE | 2021-01-13 03:17 | ED_ITS ---
HPI - SOB/Dyspnea General Chief Complaint: Shortness of Breath/Dyspnea Stated Complaint: ANDRES, dr sent pt in Time Seen by Provider: 01/13/21 03:10 History of Present Illness HPI Narrative: 35-year old female smoker presents with a chief complaint of about 2 weeks of shortness of breath that seems to start at night when she lays down. She denies any exertional dyspnea, weight gain or lower extremity swelling. She denies any chest pain, fever or chills. She denies any significant runny nose or sore throat but does state that the reason she feels like she cannot breathe is when she lays flat she feels like something is caught in her Throat. Related Data Home Medications Medication Instructions Recorded Confirmed gabapentin 300 mg capsule 300 mg PO TID 01/28/19 09/04/19 hydroxyzine pamoate 25 mg capsule 25 mg PO BID 01/28/19 09/04/19 ihrwsct-lydttqtjnmnmx-oadopapy 250 1 tab PO DIRECTED 02/25/19 09/04/19 mg-250 mg-65 mg tablet (Migraine Relief) buprenorphine 8 mg-naloxone 2 mg 2 film SUBLINGUAL BID 02/25/19 09/04/19 sublingual film doxycycline monohydrate 100 mg 100 mg PO DAILY 02/25/19 09/04/19 capsule mirtazapine 30 mg tablet 30 mg PO DAILY 02/25/19 09/04/19 promethazine 12.5 mg tablet 12.5 mg PO BID 02/25/19 09/04/19 sumatriptan succinate 100 mg tablet 100 mg PO DIRECTED 02/25/19 09/04/19 Previous Rx's Medication Instructions Recorded cyclobenzaprine 10 mg tablet 20 mg PO BEDTIME #14 tab 02/25/19 lidocaine 5 % topical patch 2 patch TOP DAILY #30 each 02/25/19 (Lidoderm) meloxicam 15 mg tablet 15 mg PO DAILY #14 tab 02/25/19 metoclopramide HCl 10 mg tablet 10 mg PO Q6H PRN #30 tab 01/27/20 furosemide 20 mg tablet (Lasix) 20 mg PO DAILY #7 tab 01/13/21 Allergies Allergy/AdvReac Type Severity Reaction Status Date / Time codeine Allergy Verified 04/01/20 14:32 ondansetron [From Zofran] Allergy Verified 04/01/20 14:32 Sulfa (Sulfonamide Allergy Verified 04/01/20 14:32 Antibiotics) Review of Systems Review of Systems Narrative: GENERAL: Denies chills, fatigue, malaise, fever, sweats. HEENT: see HPI RESPIRATORY: see HPI CARDIOVASCULAR: Denies chest pain, palpitations, orthopnea, edema, GASTROINTESTINAL: Denies nausea, vomiting, abdominal pain, diarrhea, constipation, melena. : Denies dysuria, frequency, incontinence, hematuria, urinary retention. MUSCULOSKELETAL: denies weakness, joint pain, or bony pain SKIN: Denies rash, skin lesions, or other NEUROLOGIC: Denies weakness, headache, numbness, change in speech, confusion, seizures, incoordination. PSYCHIATRIC: No concerning psychosocial issues. 12 point review of systems is negative except for those stated above Patient History Medical History (Updated 01/13/21 @ 05:23 by Benjie Garcia DO) Chronic back pain Migraines Surgical History No history of previous surgery Social History Smoking Status: Current every day smoker Smoking Status: Current every day smoker tobacco type: cigarettes alcohol intake frequency: 0-2 drinks per day Substance Use Type: marijuana Exam Narrative Exam Narrative: GENERAL: [[age]] year old patient appears stated age. Well-developed patient, in mild distress. HEAD: Atraumatic. Normocephalic. EYES: Pupils equal round and reactive. Extraocular motions intact. No scleral ic terus. No injection or drainage. ENT: Nose without bleeding, purulent drainage. clear postnasal drip, no uvular swelling, pointing or peritonsillar fullness. Throat without erythema, tonsillar hypertrophy or exudate. Airway patent. NECK: Trachea midline. Non tender CARDIOVASCULAR: Regular rate and rhythm without murmurs, gallops, or rubs. RESPIRATORY: Clear to auscultation. Breath sounds equal bilaterally. No wheezes, rales, or rhonchi. GASTROINTESTINAL: Abdomen soft, non-tender, nondistended. EXTREMITIES: No edema or joint tenderness. BACK: Nontender without deformity or crepitance. No flank tenderness. NEURO: AOx3. SKIN: No rash or erythema of visible areas Initial Vital Signs Initial Vital Signs: Vital Signs Temperature 97.3 F L 01/13/21 03:18 Pulse Rate 78 01/13/21 03:18 Respiratory Rate 20 01/13/21 03:18 Blood Pressure 179/84 H 01/13/21 03:18 Pulse Oximetry 99 01/13/21 03:18 Course Orders Ordered: ED Orders 01/13/21 EKG-12 Lead Stat 01/13/21 03:18 XR chest 2V Stat 01/13/21 03:23 Complete Blood Count AUTO DIFF Stat Comprehensive Metabolic Panel Stat NT-proBNP (BNP-Adult 18+) Stat Discontinued Medications Albuterol/Ipratropium (Albuterol/Ipratropium 3 Ml Ampul) 3 ml INH NOW ONE Stop: 01/13/21 04:46 Last Admin: 01/13/21 05:04 Dose: 3 ml Documented by: Dexamethasone (Dexamethasone 10 Mg/Ml Vial) 10 mg IV NOW ONE Stop: 01/13/21 03:59 Last Admin: 01/13/21 04:07 Dose: 10 mg Documented by: Vital Signs Vital signs: Vital Signs - 8 hr 01/13/21 03:18 01/13/21 03:33 01/13/21 03:35 Temperature 97.3 F L Pulse Rate 78 85 78 Respiratory Rate 20 10 L Blood Pressure 179/84 H 143/64 H Pulse Oximetry 99 99 96 01/13/21 04:00 01/13/21 04:30 01/13/21 05:00 Temperature Pulse Rate 69 69 67 Respiratory Rate 12 12 9 L Blood Pressure 128/60 125/69 135/86 Pulse Oximetry 97 95 96 01/13/21 05:06 Temperature Pulse Rate 74 Respiratory Rate 18 Blood Pressure Pulse Oximetry 97 MDM - SOB/Dyspnea Lab Data Result diagrams: 01/13/21 03:23 01/13/21 03:23 Labs: Lab Results 01/13/21 01/13/21 Range/Units 03:23 03:23 WBC 7.0 (4.5-11.0) X10^3/uL RBC 4.05 (4.0-5.2) X10^6/uL Hgb 11.9 L (12.0-16.0) g/dL Hct 35.8 L (36-46) % MCV 88.4 (80-100) fL MCH 29.4 (26-34) PG MCHC 33.3 (30-36) % RDW 11.8 (11.6-14.8) % Plt Count 250 (150-400) X10^3/uL Neut % (Auto) 34.1 L (50-75) % Lymph % (Auto) 53.2 H (25-40) % [place] % (Auto) 8.9 (3-14) % Eos % (Auto) 2.7 (2-4) % Baso % (Auto) 1.1 (0-2) % Neut # (Auto) 2400 (9661-4496) /uL Lymph # (Auto) 3700 (0938-4821) /uL [place] # (Auto) 600 (0-900) /uL Eos # (Auto) 200 (0-450) /uL Baso # (Auto) 100 (0-100) /uL Sodium 138 (137-145) mmol/L Potassium 4.1 (3.4-5.1) mmol/L Chloride 106 (98-107) mmol/L Carbon Dioxide 25 (22-32) mmol/L BUN 9 (7-17) mg/dL Creatinine 0.56 (0.52-1.04) mg/dL Estimated GFR > 60.0 (>60) mL/min BUN/Creatinine Ratio 16.1 (6-22) Glucose 91 (70-100) mg/dL Calcium 9.3 (8.4-10.2) mg/dL Total Bilirubin 0.2 (0.2-1.3) mg/dL AST 40 H (14-36) IU/L ALT 32 (<35) IU/L Alkaline Phosphatase 59 (38-126) U/L NT-Pro-B Natriuret Pep 274 H (<125) pg/mL Total Protein 7.4 (6.3-8.2) g/dL Albumin 4.2 (3.5-5.0) g/dL Globulin 3.2 (1.7-4.1) g/dL Albumin/Globulin Ratio 1.3 (1.0-2.8) Point of Care Testing Test Results Negative Urine Dip Bedside Urine Glucose Negative Bedside Urine Bilirubin - Negative Bedside Urine Ketone - Negative Urine Specific [place] 1.025 Bedside Urine Occult Blood - Negative Bedside Urine pH 6.0 Bedside Urine Protein - Negative Bedside Urine Urobilinogen - Negative Bedside Urine Nitrite - Negative Bedside Urine Leukocytes - Negative Esterase Discharge Plan Departure Patient Disposition: Home Clinical Impression: Acute dyspnea Instructions: DI for Shortness of Breath Activity Restrictions/Additional Instructions: *You have been diagnosed with [dyspnea. Labs, chest x-ray and physical exam are very reassuring. Of your story and once subtle lab elevations that suggest there may be an element of fluid overload that might be contributing to your symptoms. Please take the medications as directed] *What to do: *Please continue to take your regular medications as directed. [ x] New medication prescriptions sent to your pharmacy: [[facility] ] [ ] New medication written as a paper prescription [ ] No new medications given *Please follow up with your primary care provider in 2-3 days, call for an appointment. Let them know you were seen in the Emergency Department and that we ask that you be seen in follow up. We will electronically transmit a record of today's note if your PCP is in our system *If you do not have a primary care provider please contact the [facility] Resource line at [phone]. They will ask some questions about your medical history and help get you set up with a doctor in the community. *Return to Emergency Department if you should have any new, worsening or concerning symptoms, such as [fever greater than 101 F, shaking chills, worsening pain, persistent vomiting or other bothersome symptoms] Prescriptions: New furosemide [Lasix] 20 mg tablet 20 mg PO DAILY Qty: 7 RF: 0 No Action gabapentin 300 mg capsule 300 mg PO TID RF: 0 hydroxyzine pamoate 25 mg capsule 25 mg PO BID RF: 0 sumatriptan succinate 100 mg tablet 100 mg PO DIRECTED RF: 0 promethazine 12.5 mg tablet 12.5 mg PO BID RF: 0 doxycycline monohydrate 100 mg capsule 100 mg PO DAILY RF: 0 mirtazapine 30 mg tablet 30 mg PO DAILY RF: 0 Migraine Relief 250-250-65 mg tablet 1 tab PO DIRECTED RF: 0 buprenorphine-naloxone 8-2 mg film 2 film sublingual BID RF: 0 cyclobenzaprine 10 mg tablet 20 mg PO BEDTIME Qty: 14 RF: 0 meloxicam 15 mg tablet 15 mg PO DAILY Qty: 14 RF: 0 lidocaine [Lidoderm] 5 % adhesive patch,medicated 2 patch TOP DAILY Qty: 30 RF: 0 metoclopramide HCl 10 mg tablet 10 mg PO Q6H PRN (Reason: nausea and vomiting) Qty: 30 RF: 0 Stand Alone Forms: Work Release Note
--- NOTE | 2021-01-13 03:18 | DI.RAD.S_ITS ---
PROCEDURE: XR CHEST 2V INDICATIONS: Shortness of breath TECHNIQUE: 2 views of the chest were acquired. COMPARISON: [facility], , CHEST 2VW, 06/29/2012, 12:36. FINDINGS: Surgical changes and devices: None. Lungs and pleura: Lungs are clear. No pleural effusions or pneumothorax. Mediastinum: Mediastinal contours are normal. Heart size is normal. Bones and chest wall: No suspicious bony abnormalities. Soft tissues appear unremarkable. IMPRESSION: No acute cardiopulmonary disease. No significant discrepancy with the pastry baker radiology preliminary report. Dictated by: Agustin Stark M.D. on 01/13/2021 at 8:10 Approved by: Agustin Stark M.D. on 01/13/2021 at 8:10
[2021-01-13 03:36] LABS: Add Manual Diff / Slide Review NO; Basophils Absolute Auto 100 /uL (0-100); Basophils Percent Auto 1.1 % (0-2); Eosinophils Absolute Auto 200 /uL (0-450); Eosinophils Percent Auto 2.7 % (2-4); Hematocrit 35.8 % (36-46); Hemoglobin 11.9 g/dL (12.0-16.0); Lymphocytes Absolute Auto 3700 /uL (1100-4500); Lymphocytes Percent Auto 53.2 % (25-40); Mean Corpuscular HGB Conc 33.3 % (30-36); Mean Corpuscular Hemoglobin 29.4 PG (26-34); Mean Corpuscular Volume 88.4 fL (80-100); Monocytes Absolute Auto 600 /uL (0-900); Monocytes Percent Auto 8.9 % (3-14); Neutrophils Absolute Auto 2400 /uL (1500-7000); Neutrophils Percent Auto 34.1 % (50-75); Platelet Count 250 X10^3/uL (150-400); Red Blood Cell Count 4.05 X10^6/uL (4.0-5.2); Red Cell Distribution Width 11.8 % (11.6-14.8)
[2021-01-13 03:42] LABS: Alanine Aminotransferase 32 IU/L (<35); Albumin 4.2 g/dL (3.5-5.0); Albumin Globulin Ratio 1.3 (1.0-2.8); Alkaline Phosphatase 59 U/L (38-126); Aspartate Aminotransferase 40 IU/L (14-36); BUN Creatinine Ratio 16.1 (6-22); Bilirubin Total 0.2 mg/dL (0.2-1.3); Blood Urea Nitrogen 9 mg/dL (7-17); Calcium 9.3 mg/dL (8.4-10.2); Carbon Dioxide 25 mmol/L (22-32); Chloride 106 mmol/L (98-107); Estimated Glomerular Filt Rate > 60.0 mL/min (>60); Globulin 3.2 g/dL (1.7-4.1); Glucose 91 mg/dL (70-100); HEMOLYSIS < 15 (0-50); Potassium 4.1 mmol/L (3.4-5.1); Sodium 138 mmol/L (137-145); Total Protein 7.4 g/dL (6.3-8.2)
[2021-01-13 03:51] LABS: NT-proBNP (BNP-Adult 18+) 274 pg/mL (<125)
[2021-01-13] MEDS: DEXAMETHASONE 10 MG/ML VIAL IV (04:07)
[2021-01-13] MEDS: ALBUTEROL/IPRATROPIUM 3 ML AMPUL INH (05:04)
== END 2021-01-13 05:32 | disposition home or self-care (01) ==
PROVIDERS: Emergency Provider Emergency Medicine
DX: R06.00 Dyspnea, unspecified (principal)
CPT/HCPCS: 36415; 71046; 80053; 81003; 81025; 83880; 85025; 93005; 93010; 94640; 96374; 99284; J1100

== ENCOUNTER → 2021-02-26 14:33 | Outpatient (CLI) | payer OTHER, MEDICAID, SELFPAY ==
--- NOTE | 2021-02-26 14:40 | DI.RAD.S_ITS ---
PROCEDURE: XR KNEE RT 3V INDICATIONS: PAIN IN RIGHT KNEE TECHNIQUE: 3 views of the knee were acquired. COMPARISON: [facility], , KNEE 3VW (RT), 02/20/2010, 11:36. FINDINGS: Bones: No fractures or dislocations. Joint spaces are preserved. No suspicious bony lesions. Soft tissues: No joint effusion. No suspicious soft tissue calcifications. IMPRESSION: No acute bony abnormality or evident degenerative change. Dictated by: Elliott Corona M.D. on 02/26/2021 at 14:11 Approved by: Elliott Corona M.D. on 02/26/2021 at 14:13
== END ==
PROVIDERS: PCP Nurse Practitioner Gerontology; Referring Provider Nurse Practitioner Gerontology; Visit Provider Nurse Practitioner Gerontology
DX: M25.561 Pain in right knee (principal); G89.29 Other chronic pain
CPT/HCPCS: 73562

== ENCOUNTER → 2021-03-27 15:23 | Outpatient (CLI) | payer OTHER, MEDICAID, SELFPAY ==
[2021-03-27 17:24] LABS: COVID19 -Nasal RAPID Negative (Negative)
== END ==
PROVIDERS: PCP Nurse Practitioner Gerontology; Visit Provider Nurse Practitioner Family
DX: Z20.822 Contact with and (suspected) exposure to COVID-19 (principal); R06.02 Shortness of breath; R51.9 Headache, unspecified
CPT/HCPCS: 87635

== ENCOUNTER 2021-05-05 01:19 | Emergency (ER) | payer OTHER, MEDICAID, SELFPAY ==
[2021-05-05 01:28] VITALS: PULSE 80; RESP 16; O2SAT 95
[2021-05-05 01:30] VITALS: BP 134/73; PULSE 73; RESP 21; O2SAT 96
[2021-05-05 01:32] VITALS: BP 129/73; PULSE 90; RESP 21; TEMP 36.6; O2SAT 98; BMI 29.8
--- NOTE | 2021-05-05 01:32 | DI.RAD.S_ITS ---
PROCEDURE: XR CHEST 1V INDICATIONS: chest pain TECHNIQUE: One view of the chest was acquired. COMPARISON: [facility], [place], XR CHEST 2V, 01/13/2021, 3:15. FINDINGS: Surgical changes and devices: None. Lungs and pleura: Lungs are clear. No pleural effusions or pneumothorax. Mediastinum: Mildly tortuous thoracic aorta is seen. Heart size is normal. Bones and chest wall: No suspicious bony lesions. Overlying soft tissues appear unremarkable. IMPRESSION: No acute cardiopulmonary pathology. Dictated by: Geovani Fierro M.D. on 05/05/2021 at 1:51 Approved by: Geovani Fierro M.D. on 05/05/2021 at 1:51
--- NOTE | 2021-05-05 01:34 | ED_ITS ---
HPI - Chest Pain General Chief Complaint: Chest Pain Stated Complaint: chest pain/tightness, rt shoulder pain, sob,sweats Time Seen by Provider: 05/05/21 01:30 Source: patient and old records reviewed Mode of arrival: Ambulatory Limitations: no limitations History of Present Illness HPI narrative: This is a 35-year-old female comes emergency department with complaint of chest pain tightness that started yesterday morning patient states it started morning its for any 1:00 a.m. today. It has been almost 24 hours. She states nothing seems to make it worse. Seems to make it better. She describes as being sort of anterior chest a little bit towards her shoulder. She has had sweats but no fevers that she is aware of but has felt hot and cold. She states she does feel short of breath she denies nasal congestion, cough or cold psych symptoms. She has had some nausea but no vomiting. No diarrhea constipation. She denies any urinary symptoms. She has felt lightheaded but has not passed out. She denies any new swelling in her extremities. Patient states she was recently diagnosed with factor 5 Leiden and has a family history. 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 She takes gabapentin as well. These are her only medications. Patient has had C-sections and states that she had bleeding with 1 of her deliveries and required emergency surgery. She uses tobacco, she does drink alcohol, occasional marijuana but no other illicit. She has not taken anything at home for pain. She states she was putting her son home to bed and felt quite uncomfortable which prompted her to come in today. Related Data Home Medications Medication Instructions Recorded Confirmed gabapentin 300 mg capsule 300 mg PO TID 01/28/19 09/04/19 hydroxyzine pamoate 25 mg capsule 25 mg PO BID 01/28/19 09/04/19 [id number] 250 1 tab PO DIRECTED 02/25/19 09/04/19 mg-250 mg-65 mg tablet (Migraine Relief) buprenorphine 8 mg-naloxone 2 mg 2 film SUBLINGUAL BID 02/25/19 09/04/19 sublingual film doxycycline monohydrate 100 mg 100 mg PO DAILY 02/25/19 09/04/19 capsule mirtazapine 30 mg tablet 30 mg PO DAILY 02/25/19 09/04/19 promethazine 12.5 mg tablet 12.5 mg PO BID 02/25/19 09/04/19 sumatriptan succinate 100 mg tablet 100 mg PO DIRECTED 02/25/19 09/04/19 Previous Rx's Medication Instructions Recorded cyclobenzaprine 10 mg tablet 20 mg PO BEDTIME #14 tab 02/25/19 lidocaine 5 % topical patch 2 patch TOP DAILY #30 each 02/25/19 (Lidoderm) meloxicam 15 mg tablet 15 mg PO DAILY #14 tab 02/25/19 metoclopramide HCl 10 mg tablet 10 mg PO Q6H PRN #30 tab 01/27/20 furosemide 20 mg tablet (Lasix) 20 mg PO DAILY #7 tab 01/13/21 Allergies Allergy/AdvReac Type Severity Reaction Status Date / Time codeine Allergy Verified 04/01/20 14:32 ondansetron [From Zofran] Allergy Verified 04/01/20 14:32 Sulfa (Sulfonamide Allergy Verified 04/01/20 14:32 Antibiotics) Review of Systems Review of Systems ROS Unobtainable: All systems reviewed & are unremarkable except as noted in HPI and below Patient History Medical History (Updated 05/05/21 @ 01:42 by No Friedman DO) Chronic back pain Migraines Surgical History No history of previous surgery Social History Smoking Status: Current every day smoker Smoking Status: Current every day smoker tobacco type: cigarettes alcohol intake frequency: 0-2 drinks per day Substance Use Type: marijuana Exam Narrative Exam Narrative: GENERAL: Alert and oriented x three, female in mild distress. HEENT: Head normocephalic, atraumatic, EOMI, pupils reactive, face symmetric, moist mucous membranes NECK: Supple, full range of motion CARDIOVASCULAR: Regular rate and rhythm without murmurs, rubs or gallops. Non reproducible chest pain. No JVD. No swelling bilateral lower extremities. RESPIRATORY: Breath sounds equal bilaterally, no wheezes rales or rhonchi. Patient speaks in full sentences. No tachypnea. No accessory muscle use. ABDOMEN: Soft, nontender. Normoactive bowel sounds all 4 quadrants. No guarding or rebound, rigidity, no mass : No CVA tenderness EXTREMITIES: Normal range of motion, no clubbing or edema. Neurovascularly intact NEUROLOGICAL: Cranial nerves II through XII grossly intact. Moving all extremities SKIN: Warm, dry, no petechiae, no rashes or lesions. Initial Vital Signs Initial Vital Signs: Vital Signs Pulse Rate 80 05/05/21 01:28 Respiratory Rate 16 05/05/21 01:28 Pulse Oximetry 95 05/05/21 01:28 Scores HEART Score Heart Score history: Slightly Suspicious Heart Score EKG: Non-Specific repolarization disturbance Heart Score Age: < 45 years old Heart Score risk factors: No known risk factors Heart Score troponin: < or = to normal limit Heart Score Total: 1 PERC Score Age greater than or equal to 50 years: No Heart rate greater than or equal to 100 bpm: No Room Air O2 Sat less than 95%: No Unilateral leg swelling: No Recent trauma or surgery: No Hemoptysis: No Prior PE or DVT: No Hormone Use: No Total PERC Score: 0 Course Orders Ordered: ED Orders 05/05/21 01:32 XR chest 1V Stat EKG-12 Lead Stat 05/05/21 01:35 COVID19 -Nasal swab/Pre-Proc Stat Complete Blood Count AUTO DIFF Stat Comprehensive Metabolic Panel Stat D Dimer Stat Lipase Stat NT-proBNP (BNP-Adult 18+) Stat Troponin & CK Cardiac Panel Stat Discontinued Medications Aspirin (Aspirin 81 Mg Chew Tab) 324 mg PO NOW ONE Stop: 05/05/21 01:32 Last Admin: 05/05/21 01:37 Dose: 324 mg Documented by: LIZBETH Vital Signs Vital signs: Vital Signs - 8 hr 05/05/21 01:28 05/05/21 01:30 05/05/21 01:32 Temperature 98 F Pulse Rate 80 73 90 Respiratory Rate 16 21 Blood Pressure 134/73 129/73 Pulse Oximetry 95 96 98 05/05/21 02:00 05/05/21 02:30 Temperature Pulse Rate 53 L 49 L Respiratory Rate 12 12 Blood Pressure 145/81 H 131/79 Pulse Oximetry 96 96 MDM - Chest Pain Lab Data Result diagrams: 05/05/21 01:35 05/05/21 01:35 Labs: Lab Results 05/05/21 05/05/21 05/05/21 Range/Units 01:35 01:35 01:35 WBC 8.0 (4.5-11.0) X10^3/uL RBC 3.80 L (4.0-5.2) X10^6/uL Hgb 11.2 L (12.0-16.0) g/dL Hct 33.3 L (36-46) % MCV 87.7 (80-100) fL MCH 29.5 (26-34) PG MCHC 33.7 (30-36) % RDW 12.7 (11.6-14.8) % Plt Count 234 (150-400) X10^3/uL Neut % (Auto) 48.5 L (50-75) % Lymph % (Auto) 41.6 H (25-40) % [place] % (Auto) 7.1 (3-14) % Eos % (Auto) 2.0 (2-4) % Baso % (Auto) 0.8 (0-2) % Neut # (Auto) 3900 (4856-6503) /uL Lymph # (Auto) 3300 (9752-2704) /uL [place] # (Auto) 600 (0-900) /uL Eos # (Auto) 200 (0-450) /uL Baso # (Auto) 100 (0-100) /uL D-Dimer 213 (<230) ng/mL Sodium (137-145) mmol/L Potassium (3.4-5.1) mmol/L Chloride (98-107) mmol/L Carbon Dioxide (22-32) mmol/L BUN (7-17) mg/dL Creatinine (0.52-1.04) mg/dL Estimated GFR (>60) mL/min BUN/Creatinine Ratio (6-22) Glucose (70-100) mg/dL Calcium (8.4-10.2) mg/dL Total Bilirubin (0.2-1.3) mg/dL AST (14-36) IU/L ALT (<35) IU/L Alkaline Phosphatase (38-126) U/L Total Creatine Kinase (30-135) U/L CK-MB (CK-2) CK-MB (CK-2) Rel Index Troponin I (0.01-0.034) ng/mL NT-Pro-B Natriuret Pep 132 H (<125) pg/mL Total Protein (6.3-8.2) g/dL Albumin (3.5-5.0) g/dL Globulin (1.7-4.1) g/dL Albumin/Globulin Ratio (1.0-2.8) Lipase (23-300) U/L SARS-CoV-2 (PCR) (Negative) 05/05/21 05/05/21 Range/Units 01:35 01:35 WBC (4.5-11.0) X10^3/uL RBC (4.0-5.2) X10^6/uL Hgb (12.0-16.0) g/dL Hct (36-46) % MCV (80-100) fL MCH (26-34) PG MCHC (30-36) % RDW (11.6-14.8) % Plt Count (150-400) X10^3/uL Neut % (Auto) (50-75) % Lymph % (Auto) (25-40) % [place] % (Auto) (3-14) % Eos % (Auto) (2-4) % Baso % (Auto) (0-2) % Neut # (Auto) (1633-8140) /uL Lymph # (Auto) (9787-0925) /uL [place] # (Auto) (0-900) /uL Eos # (Auto) (0-450) /uL Baso # (Auto) (0-100) /uL D-Dimer (<230) ng/mL Sodium 143 (137-145) mmol/L Potassium 3.8 (3.4-5.1) mmol/L Chloride 105 (98-107) mmol/L Carbon Dioxide 31 (22-32) mmol/L BUN 9 (7-17) mg/dL Creatinine 0.66 (0.52-1.04) mg/dL Estimated GFR > 60.0 (>60) mL/min BUN/Creatinine Ratio 13.6 (6-22) Glucose 102 H (70-100) mg/dL Calcium 9.3 (8.4-10.2) mg/dL Total Bilirubin 0.3 (0.2-1.3) mg/dL AST 27 (14-36) IU/L ALT 20 (<35) IU/L Alkaline Phosphatase 59 (38-126) U/L Total Creatine Kinase 87 (30-135) U/L CK-MB (CK-2) TNP CK-MB (CK-2) Rel Index TNP Troponin I < 0.012 (0.01-0.034) ng/mL NT-Pro-B Natriuret Pep (<125) pg/mL Total Protein 7.5 (6.3-8.2) g/dL Albumin 4.3 (3.5-5.0) g/dL Globulin 3.2 (1.7-4.1) g/dL Albumin/Globulin Ratio 1.3 (1.0-2.8) Lipase 77 (23-300) U/L SARS-CoV-2 (PCR) Negative (Negative) Imaging Data Chest x-ray: Radiologist's Impression: [address] [address] XRay Report Signed Patient: Helio Carrillo MR#: [id number] : 1985 Acct:[id number] Age/Sex: 35 / F Date of Service: 05/05/21 Loc: ED Accession Number: [id number] ?? Procedure: XR chest 1V Ordering Provider: No Friedman D.O. PROCEDURE:? XR CHEST 1V ? INDICATIONS:? chest pain ? TECHNIQUE:? One view of the chest was acquired.? ? COMPARISON:? [facility], CR, XR CHEST 2V, 01/13/2021, 3:15. ? FINDINGS:? ? Surgical changes and devices:? None.? ? Lungs and pleura:? Lungs are clear.? No pleural effusions or pneumothorax.? ? Mediastinum:? Mildly tortuous thoracic aorta is seen.? Heart size is normal.? ? Bones and chest wall:? No suspicious bony lesions.? Overlying soft tissues appear unremarkable.? ? IMPRESSION:? No acute cardiopulmonary pathology. ? ? Dictated by: Geovani Fierro M.D. on 05/05/2021 at 1:51 ? ? Approved by: Geovani Fierro M.D. on 05/05/2021 at 1:51? ECG Data Attestation: I personally reviewed and interpreted this ECG as follows: Prior ECG tracings: available for review Interpretation: Sinus rhythm. Rate of 67, UT 136 QRS 88 QTC of 420. No acute ST changes noted. Patient has prior EKG from 01/23/2021 which appears similar. MDM Narrative Medical decision making narrative: This is a 35-year-old female has a history of recently diagnosed factor 5 Leiden, is in for appropriate own/naloxone and gabapentin. Patient has had chest pain that was unprovoked for the past almost 24 hours without any exacerbating or alleviating symptoms. Patient has had some hot and cold episodes and we discussed her COVID is negative but should be rechecked if she develops any new or other changing symptoms. EKG does not show any acute changes and appears similar to priors. Labs including CBC, D-dimer, troponin and BNP do not show major alterations. Shows some chronic anemia. Patient is feeling better at this time and feels comfortable to return home. We did discuss return precautions as we did not find a clear exact cause for her chest pain. Patient was noted to have bradycardia on telemetry. Patient states she has been told this in the past and is not atypical for her. Discharge Plan Departure Patient Disposition: Home Clinical Impression: Chest pain Instructions: DI for Chest Pain Activity Restrictions/Additional Instructions: Follow-up for recheck May take Tylenol up to a 1000 mg every 8 hours and or ibuprofen up to 800 mg every 8 hours as needed pain. Your labs, EKG and chest x-ray today are reassuring. Please return for new or worsening symptoms, passing out, diaphoresis, persistent vomiting, swelling in your extremities, difficulty breathing or other new or concerning symptoms. Prescriptions: No Action gabapentin 300 mg capsule 300 mg PO TID RF: 0 hydroxyzine pamoate 25 mg capsule 25 mg PO BID RF: 0 sumatriptan succinate 100 mg tablet 100 mg PO DIRECTED RF: 0 promethazine 12.5 mg tablet 12.5 mg PO BID RF: 0 doxycycline monohydrate 100 mg capsule 100 mg PO DAILY RF: 0 mirtazapine 30 mg tablet 30 mg PO DAILY RF: 0 Migraine Relief 250-250-65 mg tablet 1 tab PO DIRECTED RF: 0 buprenorphine-naloxone 8-2 mg film 2 film sublingual BID RF: 0 cyclobenzaprine 10 mg tablet 20 mg PO BEDTIME Qty: 14 RF: 0 meloxicam 15 mg tablet 15 mg PO DAILY Qty: 14 RF: 0 lidocaine [Lidoderm] 5 % adhesive patch,medicated 2 patch TOP DAILY Qty: 30 RF: 0 metoclopramide HCl 10 mg tablet 10 mg PO Q6H PRN (Reason: nausea and vomiting) Qty: 30 RF: 0 furosemide [Lasix] 20 mg tablet 20 mg PO DAILY Qty: 7 RF: 0 Referrals: Mary Strickland ARNP [Primary Care Provider] -
[2021-05-05] MEDS: ASPIRIN 81 MG CHEW TAB 324 MG PO (01:37)
[2021-05-05 01:48] LABS: Add Manual Diff / Slide Review NO; Basophils Absolute Auto 100 /uL (0-100); Basophils Percent Auto 0.8 % (0-2); Eosinophils Absolute Auto 200 /uL (0-450); Hematocrit 33.3 % (36-46); Hemoglobin 11.2 g/dL (12.0-16.0); Lymphocytes Absolute Auto 3300 /uL (1100-4500); Lymphocytes Percent Auto 41.6 % (25-40); Mean Corpuscular HGB Conc 33.7 % (30-36); Mean Corpuscular Hemoglobin 29.5 PG (26-34); Mean Corpuscular Volume 87.7 fL (80-100); Monocytes Absolute Auto 600 /uL (0-900); Monocytes Percent Auto 7.1 % (3-14); Neutrophils Absolute Auto 3900 /uL (1500-7000); Neutrophils Percent Auto 48.5 % (50-75); Platelet Count 234 X10^3/uL (150-400); Red Cell Distribution Width 12.7 % (11.6-14.8)
[2021-05-05 01:58] LABS: Alanine Aminotransferase 20 IU/L (<35); Albumin 4.3 g/dL (3.5-5.0); Albumin Globulin Ratio 1.3 (1.0-2.8); Alkaline Phosphatase 59 U/L (38-126); Aspartate Aminotransferase 27 IU/L (14-36); BUN Creatinine Ratio 13.6 (6-22); Bilirubin Total 0.3 mg/dL (0.2-1.3); Blood Urea Nitrogen 9 mg/dL (7-17); COVID19 -Nasal RAPID Negative (Negative); Calcium 9.3 mg/dL (8.4-10.2); Carbon Dioxide 31 mmol/L (22-32); Chloride 105 mmol/L (98-107); Creatine Kinase 87 U/L (30-135); Estimated Glomerular Filt Rate > 60.0 mL/min (>60); Globulin 3.2 g/dL (1.7-4.1); Glucose 102 mg/dL (70-100); HEMOLYSIS < 15 (0-50); Lipase 77 U/L (23-300); Potassium 3.8 mmol/L (3.4-5.1); Sodium 143 mmol/L (137-145); Total Protein 7.5 g/dL (6.3-8.2)
[2021-05-05 02:00] VITALS: BP 145/81; PULSE 53; RESP 12; O2SAT 96
[2021-05-05 02:03] LABS: D Dimer 213 ng/mL (<230)
[2021-05-05 02:07] LABS: NT-proBNP (BNP-Adult 18+) 132 pg/mL (<125)
[2021-05-05 02:09] LABS: Troponin I < 0.012 ng/mL (0.01-0.034)
[2021-05-05 02:30] VITALS: BP 131/79; PULSE 49; RESP 12; O2SAT 96
== END 2021-05-05 03:03 | disposition home or self-care (01) ==
PROVIDERS: Emergency Provider Emergency Medicine; PCP Nurse Practitioner Gerontology
DX: R07.9 Chest pain, unspecified (principal); Z20.822 Contact with and (suspected) exposure to COVID-19
CPT/HCPCS: 36415; 71045; 80053; 82550; 83690; 83880; 84484; 85025; 85379; 87635; 93005; 93010; 99284; C9803

== ENCOUNTER 2021-05-14 19:44 | Emergency (ER) | payer OTHER, MEDICAID, SELFPAY ==
[2021-05-14 19:52] VITALS: BP 143/75; PULSE 54; RESP 18; TEMP 36.7; O2SAT 98
--- NOTE | 2021-05-14 21:12 | ED.HA ---
HPI - Headache General Chief Complaint: Headache Stated Complaint: Jaw Keeps Locking Pain, Migraine Time Seen by Provider: 05/14/21 19:50 Mode of arrival: Ambulatory History of Present Illness HPI Narrative: 35-year-old female daily smoker with history of substance abuse presents with a chief complaint of popping and clicking in her bilateral jaws which has been present more often than not over the past few days. She does have a rather extensive history of this and has even seen a dentist about possible TMJ. She has been taking Tylenol Motrin with little help. She denies any trauma or injury. She denies any fever or chills. She has no chest pain or shortness of breath. She denies any significant increased stresses in her life as of late. She denies that she grinds her teeth. Related Data Home Medications Medication Instructions Recorded Confirmed gabapentin 300 mg capsule 300 mg PO TID 01/28/19 09/04/19 hydroxyzine pamoate 25 mg capsule 25 mg PO BID 01/28/19 09/04/19 [id number]-[id number]-[id number] 250 1 tab PO DIRECTED 02/25/19 09/04/19 mg-250 mg-65 mg tablet (Migraine Relief) buprenorphine 8 mg-naloxone 2 mg 2 film SUBLINGUAL BID 02/25/19 09/04/19 sublingual film doxycycline monohydrate 100 mg 100 mg PO DAILY 02/25/19 09/04/19 capsule mirtazapine 30 mg tablet 30 mg PO DAILY 02/25/19 09/04/19 promethazine 12.5 mg tablet 12.5 mg PO BID 02/25/19 09/04/19 sumatriptan succinate 100 mg tablet 100 mg PO DIRECTED 02/25/19 09/04/19 Previous Rx's Medication Instructions Recorded cyclobenzaprine 10 mg tablet 20 mg PO BEDTIME #14 tab 02/25/19 lidocaine 5 % topical patch 2 patch TOP DAILY #30 each 02/25/19 (Lidoderm) meloxicam 15 mg tablet 15 mg PO DAILY #14 tab 02/25/19 metoclopramide HCl 10 mg tablet 10 mg PO Q6H PRN #30 tab 01/27/20 furosemide 20 mg tablet (Lasix) 20 mg PO DAILY #7 tab 01/13/21 cyclobenzaprine 10 mg tablet 10 mg PO TID PRN #14 tab 05/14/21 ketorolac 10 mg tablet 10 mg PO Q6H PRN #14 tab 05/14/21 Allergies Allergy/AdvReac Type Severity Reaction Status Date / Time codeine Allergy Verified 04/01/20 14:32 ondansetron [From Zofran] Allergy Verified 04/01/20 14:32 Sulfa (Sulfonamide Allergy Verified 04/01/20 14:32 Antibiotics) Review of Systems Review of Systems Narrative: GENERAL: Denies chills, fatigue, malaise, fever, sweats. HEENT: See HPI RESPIRATORY: Denies dyspnea, cough, wheezing, hemoptysis, sputum. CARDIOVASCULAR: Denies chest pain, palpitations, orthopnea, edema, GASTROINTESTINAL: Denies nausea, vomiting, abdominal pain, diarrhea, constipation, melena. : Denies dysuria, frequency, incontinence, hematuria, urinary retention. MUSCULOSKELETAL: denies weakness, joint pain, or bony pain SKIN: Denies rash, skin lesions, or other NEUROLOGIC: Denies weakness, headache, numbness, change in speech, confusion, seizures, incoordination. PSYCHIATRIC: No concerning psychosocial issues. 12 point review of systems is negative except for those stated above Patient History Medical History Chronic back pain Migraines Surgical History No history of previous surgery Social History Smoking Status: Current every day smoker Smoking Status: Current every day smoker tobacco type: cigarettes alcohol intake frequency: 0-2 drinks per day Substance Use Type: marijuana Exam Narrative Exam Narrative: GEN: AOx3 and in mild distress EYES: Pupils are equal, round, and reactive to light and accommodation. Extraoccular muscles are intact bilaterally. There is no subconjunctival hemorrhage or exudate. ENT: No palpable clicking with opening and closing the jaw, intraoral exam unremarkable, no dental infection or abscess, airway patent. CHEST: Lungs are clear to auscultation bilaterally and free of wheezes, rales, or rhonchi. Heart rate is regular rhythm, there are no murmurs, clicks, rubs, or gallops. There is no chest wall tenderness. ABD: Abdomen is soft and nontender. There is no guarding or rebound. Bowel sounds are normal in all 4 quadrants. There is no mass or organomegaly. EXT: Full painless ROM of all extremities with no loss of sensation or strength. SKIN: Warm, pink, and dry. No erythema or rash Initial Vital Signs Initial Vital Signs: Vital Signs Temperature 98.0 F 05/14/21 19:52 Pulse Rate 54 L 05/14/21 19:52 Respiratory Rate 18 05/14/21 19:52 Blood Pressure 143/75 H 05/14/21 19:52 Pulse Oximetry 98 05/14/21 19:52 Course Orders Ordered: Discontinued Medications Cyclobenzaprine HCl (Cyclobenzaprine 10 Mg Prepack) 1 bottle MISC SEEINSTR ONE Stop: 05/14/21 21:25 Last Admin: 05/14/21 21:45 Dose: 1 bottle Documented by: PINA Vital Signs Vital signs: Vital Signs - 8 hr 05/14/21 19:52 Temperature 98.0 F Pulse Rate 54 L Respiratory Rate 18 Blood Pressure 143/75 H Pulse Oximetry 98 MDM - Headache MDM Narrative Medical decision making narrative: Patient with reassuring history and physical. Description most consistent with TMJ. Not currently having symptoms. Return precautions given and questions answered to her apparent satisfaction Discharge Plan Departure Patient Disposition: Home Clinical Impression: TMJ (temporomandibular joint disorder) Instructions: DI for Temporomandibular Disorder Activity Restrictions/Additional Instructions: *You have been diagnosed with [ temporomandibular joint disorder] *What to do: *Please continue to take your regular medications as directed. [ x] New medication prescriptions sent to your pharmacy: [[facility] in [place] ] [ ] New medication written as a paper prescription [ ] No new medications given *Please follow up with your primary care provider in 2-3 days, call for an appointment. Let them know you were seen in the Emergency Department and that we ask that you be seen in follow up. We will electronically transmit a record of today's note if your PCP is in our system *If you do not have a primary care provider please contact the [facility] Resource line at [phone]. They will ask some questions about your medical history and help get you set up with a doctor in the community. *Return to Emergency Department if you should have any new, worsening or concerning symptoms, such as [fever greater than 101 F, shaking chills, worsening pain, persistent vomiting or other bothersome symptoms] Prescriptions: New cyclobenzaprine 10 mg tablet 10 mg PO TID PRN (Reason: muscle spasm) Qty: 14 RF: 0 ketorolac 10 mg tablet 10 mg PO Q6H PRN (Reason: pain) Qty: 14 RF: 0 No Action gabapentin 300 mg capsule 300 mg PO TID RF: 0 hydroxyzine pamoate 25 mg capsule 25 mg PO BID RF: 0 sumatriptan succinate 100 mg tablet 100 mg PO DIRECTED RF: 0 promethazine 12.5 mg tablet 12.5 mg PO BID RF: 0 doxycycline monohydrate 100 mg capsule 100 mg PO DAILY RF: 0 mirtazapine 30 mg tablet 30 mg PO DAILY RF: 0 Migraine Relief 250-250-65 mg tablet 1 tab PO DIRECTED RF: 0 buprenorphine-naloxone 8-2 mg film 2 film sublingual BID RF: 0 cyclobenzaprine 10 mg tablet 20 mg PO BEDTIME Qty: 14 RF: 0 meloxicam 15 mg tablet 15 mg PO DAILY Qty: 14 RF: 0 lidocaine [Lidoderm] 5 % adhesive patch,medicated 2 patch TOP DAILY Qty: 30 RF: 0 metoclopramide HCl 10 mg tablet 10 mg PO Q6H PRN (Reason: nausea and vomiting) Qty: 30 RF: 0 furosemide [Lasix] 20 mg tablet 20 mg PO DAILY Qty: 7 RF: 0 Referrals: Mary Strickland ARNP [Primary Care Provider] -
[2021-05-14] MEDS: CYCLOBENZAPRINE 10 MG PREPACK 1 BOTTLE MISC (21:45)
== END 2021-05-14 21:45 | disposition home or self-care (01) ==
PROVIDERS: Emergency Provider Emergency Medicine; PCP Nurse Practitioner Gerontology
DX: M26.603 Bilateral temporomandibular joint disorder, unspecified (principal)
CPT/HCPCS: 99281

== ENCOUNTER 2022-03-06 15:03 | Emergency (ER) | payer OTHER, MEDICAID, SELFPAY ==
--- NOTE | 2022-03-06 15:20 | PC.NURSE ---
called pt from waiting area without answer.
== END 2022-03-06 15:35 | disposition left against medical advice (07) ==
PROVIDERS: Emergency Provider Family Medicine Addiction Medicine; PCP Nurse Practitioner Gerontology

== ENCOUNTER 2022-03-07 16:04 | Emergency (ER) | payer OTHER, MEDICAID, SELFPAY ==
[2022-03-07] VITALS (11 sets, daily range): BP systolic 122–142; BP diastolic 67–83; PULSE 117–144; RESP 12–24; TEMP 36.8; O2SAT 96–100; BMI 24.1
--- NOTE | 2022-03-07 16:10 | DI.RAD.S_ITS ---
PROCEDURE: XR CHEST 2V INDICATIONS: tachycardia TECHNIQUE: 2 views of the chest were acquired. COMPARISON: [facility], CR, XR CHEST 1V, 05/05/2021, 1:42. FINDINGS: Surgical changes and devices: None. Lungs and pleura: Lungs are clear. No pleural effusions or pneumothorax. Mediastinum: Mediastinal contours are normal. Heart size is normal. Bones and chest wall: No suspicious bony abnormalities. Soft tissues appear unremarkable. IMPRESSION: No evidence acute pulmonary process. Dictated by: Eduardo Macias M.D. on 03/07/2022 at 17:04 Approved by: Eduardo Macias M.D. on 03/07/2022 at 17:04
--- NOTE | 2022-03-07 16:13 | DI.CT.S_ITS ---
PROCEDURE: CT HEAD/BRAIN WO CON INDICATIONS: fall 2 days ago, hit head TECHNIQUE: Noncontrast 4.5 mm thick angled axial sections acquired from the foramen magnum to the vertex, with coronal and sagittal reformats. For radiation dose reduction, the following was used: automated exposure control, adjustment of mA and/or kV according to patient size. COMPARISON: [facility], CT, CT HEAD/BRAIN WO CON, 05/18/2019, 22:16. FINDINGS: Image quality: Excellent. CSF spaces: Basal cisterns are patent. No extra-axial fluid collections. Ventricles are normal in size and shape. Brain: No midline shift. No intracranial masses or hemorrhage. [place]-white matter interface is normal. Skull and face: Calvarium and visualized facial bones are intact, without suspicious lesions. Sinuses: Left sphenoid sinus opacification IMPRESSION: No intracranial hemorrhage or mass effect. Left sphenoid mucosal sinus disease, new from the prior Approved by: Ever Spence M.D. on 03/07/2022 at 16:05
--- NOTE | 2022-03-07 16:21 | ED_ITS ---
HPI - Syncope <Ruth DICK BerryP - Last Filed: 03/07/22 20:02> General Chief Complaint: Syncope Stated Complaint: fell & hit her head 3 days ago Time Seen by Provider: 03/07/22 16:05 Source: patient and EMS Mode of arrival: EMS Limitations: no limitations History of Present Illness HPI narrative: This is 36-year-old female with past medical history that includes migraines, chronic back pain, patient is on Suboxone currently and denies any significant medical problems in the past who presents to the emergency department via EMS today for worsening pain all over, her abdomen, and states that she is lightheaded and feels near-syncope when she tries to stand up. She states that she has been eating and drinking like normal, is noted to have come to the emergency department yesterday for these similar symptoms but left prior to being seen after she waited in the waiting room for 30 minutes. Patient states that she has not been voiding much, she states that she feels numbness and tingling in both of her arms, she had a fall 2 days ago and hit her head and was not evaluated. Patient denies any new weakness, she endorses feeling anxious and has severe pain. She presents with tachycardia with a heart rate 130s to 140s. Denies any chest pain, shortness of breath, difficulty breathing, or worsening fatigue. She also has a history of asthma. Her primary care provider is Mary Strickland and her prescriber for Suboxone is Dr. Vuong. Patient states she is had decreased urine output, endorses that she had a turkey sandwich for lunch and has been drinking Gatorade at home. Denies any diarrhea, abnormal vaginal discharge, chills, fever or other. She also endorses feeling abdominal pain and having a headache. Related Data Home Medications Medication Instructions Recorded Confirmed gabapentin 300 mg capsule 300 mg PO TID 01/28/19 09/04/19 hydroxyzine pamoate 25 mg capsule 25 mg PO BID 01/28/19 09/04/19 pfzzlan-knmxpkeknanqw-edqhqnph 250 1 tab PO DIRECTED 02/25/19 09/04/19 mg-250 mg-65 mg tablet (Migraine Relief) buprenorphine 8 mg-naloxone 2 mg 2 film sublingual BID 02/25/19 09/04/19 sublingual film doxycycline monohydrate 100 mg 100 mg PO DAILY 02/25/19 09/04/19 capsule mirtazapine 30 mg tablet 30 mg PO DAILY 02/25/19 09/04/19 promethazine 12.5 mg tablet 12.5 mg PO BID 02/25/19 09/04/19 sumatriptan succinate 100 mg tablet 100 mg PO DIRECTED 02/25/19 09/04/19 Previous Rx's Medication Instructions Recorded cyclobenzaprine 10 mg tablet 20 mg PO BEDTIME muscle spasm #14 02/25/19 tabs lidocaine 5 % topical patch 2 patch topical DAILY #30 ea 02/25/19 (Lidoderm) meloxicam 15 mg tablet 15 mg PO DAILY back pain #14 tabs 02/25/19 metoclopramide HCl 10 mg tablet 10 mg PO Q6H PRN nausea and 01/27/20 vomiting #30 tabs furosemide 20 mg tablet (Lasix) 20 mg PO DAILY #7 tabs 01/13/21 cyclobenzaprine 10 mg tablet 10 mg PO TID PRN muscle spasm #14 05/14/21 tabs ketorolac 10 mg tablet 10 mg PO Q6H PRN pain #14 tabs 05/14/21 Allergies Allergy/AdvReac Type Severity Reaction Status Date / Time codeine Allergy Verified 04/01/20 14:32 ondansetron [From Zofran] Allergy Verified 04/01/20 14:32 Sulfa (Sulfonamide Allergy Verified 04/01/20 14:32 Antibiotics) Review of Systems <BRENDA Delacruz - Last Filed: 03/07/22 20:02> Review of Systems Narrative: Review of systems is negative for acute abnormalities unless otherwise noted in HPI Patient History <BRENDA Delacruz - Last Filed: 03/07/22 20:02> Medical History (Updated 03/07/22 @ 19:14 by BRENDA Delacruz) Chronic back pain Migraines Surgical History No history of previous surgery Social History Smoking Status: Current every day smoker Smoking Status: Current every day smoker tobacco type: cigarettes alcohol intake frequency: 0-2 drinks per day Substance Use Type: marijuana Exam <BRENDA Delacruz - Last Filed: 03/07/22 20:02> Narrative Exam Narrative: Reviewed vitals signs and nursing notes. General: cooperative, anxious, appears uncomfortable not in any cardiorespiratory distress HEENT: symmetrical facial expressions, dry mucous membranes, EOMI, atraumatic Cardiovascular: Tachycardic rate with regular rhythm, no peripheral edema, warm extremities Respiratory: normal effort, able to speak in complete sentences, without wheezing, stridor, or abnormal breath sounds. No retractions or tachypnea. GI: abdomen soft, nontender to palpation, nondistended, without masses, rebound tenderness or exquisite tenderness with exam. MSK: moves all extremities, neurovascularly intact, no weakness, normal tone Skin: brisk capillary refill, without pallor or erythema, patient has a wound to the distal aspect of her left 2nd digit Neuro: normal speech and cognition, A&O x3, ambulatory, clear speech Psych: mental status is grossly normal, congruent mood, normal affect, pleasant and cooperative Initial Vital Signs Initial Vital Signs: Vital Signs Temperature 98.2 F 03/07/22 16:06 Pulse Rate 139 H 03/07/22 16:06 Respiratory Rate 20 03/07/22 16:06 Blood Pressure 122/80 03/07/22 16:06 Pulse Oximetry 100 03/07/22 16:06 Oxygen Delivery Method 03/07/22 16:06 <Benjie Garcia DO - Last Filed: 03/08/22 02:23> Initial Vital Signs Initial Vital Signs: Vital Signs Temperature 98.2 F 03/07/22 16:06 Pulse Rate 139 H 03/07/22 16:06 Respiratory Rate 20 03/07/22 16:06 Blood Pressure 122/80 03/07/22 16:06 Pulse Oximetry 100 03/07/22 16:06 Oxygen Delivery Method 03/07/22 16:06 Course <BRENDA Delacruz - Last Filed: 03/07/22 20:02> Orders Ordered: ED Orders 03/07/22 17:30 COVID19 -Nasal RAPID/Pre-Proc Stat Hydromorphone HCl (Hydromorphone 1 Mg Inj) 1 mg IV Q1H [facility] Last Admin: 03/07/22 19:06 Dose: 1 mg Documented By: RB Metronidazole (Flagyl) 500 mg in 100 mls @ 100 mls/hr IV Q6H [facility]IDRA Discontinued Medications Diazepam (Diazepam 10 Mg/2 Ml Syringe) 2 mg IV NOW ONE Stop: 03/07/22 16:14 Last Admin: 03/07/22 16:32 Dose: 2 mg Documented By: STEVE Hydromorphone HCl (Hydromorphone 0.5 Mg Inj) 0.5 mg IV NOW ONE Stop: 03/07/22 17:15 Last Admin: 03/07/22 17:48 Dose: 0.5 mg Documented By: RONNIE Hydromorphone HCl (Hydromorphone 1 Mg Inj) 1 mg IV Q1H PRN PRN Reason: pain Lactated Ringer's (Lactated Ringers) 1,000 mls @ 1,000 mls/hr IV BOLUS ONE Stop: 03/07/22 18:15 Last Admin: 03/07/22 17:49 Dose: 1,000 mls/hr Documented By: RONNIE Ceftriaxone Sodium 2,000 mg/ (Sodium Chloride) 100 mls @ 200 mls/hr IV NOW ONE Stop: 03/07/22 17:28 Last Admin: 03/07/22 17:48 Dose: 200 mls/hr Documented By: RONNIE Ketorolac Tromethamine (Ketorolac 30 Mg/Ml Vial) 15 mg IV NOW ONE Stop: 03/07/22 16:11 Last Admin: 03/07/22 16:33 Dose: 15 mg Documented By: STEVE Vital Signs Vital signs: Vital Signs - 8 hr 03/07/22 16:06 03/07/22 16:09 03/07/22 16:10 Temperature 98.2 F Pulse Rate 139 H 144 H Respiratory Rate 20 Blood Pressure 122/80 122/80 Pulse Oximetry 100 100 Oxygen Delivery Method Room Air 03/07/22 16:10 03/07/22 16:30 03/07/22 17:03 Temperature Pulse Rate 143 H 123 H 123 H Respiratory Rate 17 12 Blood Pressure Pulse Oximetry 100 100 Oxygen Delivery Method 03/07/22 17:29 03/07/22 17:29 03/07/22 17:30 Temperature Pulse Rate 119 H Respiratory Rate 15 Blood Pressure 142/83 H 128/67 Pulse Oximetry 100 Oxygen Delivery Method 03/07/22 17:30 03/07/22 18:00 03/07/22 18:02 Temperature Pulse Rate 117 H 128 H Respiratory Rate 14 24 Blood Pressure 129/70 Pulse Oximetry 100 96 Oxygen Delivery Method 03/07/22 18:02 Temperature Pulse Rate 125 H Respiratory Rate 24 Blood Pressure Pulse Oximetry 100 Oxygen Delivery Method <Benjie Garcia DO - Last Filed: 03/08/22 02:23> Orders Ordered: ED Orders 03/07/22 17:30 COVID19 -Nasal RAPID/Pre-Proc Stat Hydromorphone HCl (Hydromorphone 1 Mg Inj) 1 mg IV Q1H DEIDRA Last Admin: 03/07/22 19:06 Dose: 1 mg Documented By: RONNIE Metronidazole (Flagyl) 500 mg in 100 mls @ 100 mls/hr IV Q6H DEIDRA Discontinued Medications Diazepam (Diazepam 10 Mg/2 Ml Syringe) 2 mg IV NOW ONE Stop: 03/07/22 16:14 Last Admin: 03/07/22 16:32 Dose: 2 mg Documented By: STEVE Hydromorphone HCl (Hydromorphone 0.5 Mg Inj) 0.5 mg IV NOW ONE Stop: 03/07/22 17:15 Last Admin: 03/07/22 17:48 Dose: 0.5 mg Documented By: RONNIE Hydromorphone HCl (Hydromorphone 1 Mg Inj) 1 mg IV Q1H PRN PRN Reason: pain Lactated Ringer's (Lactated Ringers) 1,000 mls @ 1,000 mls/hr IV BOLUS ONE Stop: 03/07/22 18:15 Last Admin: 03/07/22 17:49 Dose: 1,000 mls/hr Documented By: RONNIE Ceftriaxone Sodium 2,000 mg/ (Sodium Chloride) 100 mls @ 200 mls/hr IV NOW ONE Stop: 03/07/22 17:28 Last Admin: 03/07/22 17:48 Dose: 200 mls/hr Documented By: RONNIE Ketorolac Tromethamine (Ketorolac 30 Mg/Ml Vial) 15 mg IV NOW ONE Stop: 03/07/22 16:11 Last Admin: 03/07/22 16:33 Dose: 15 mg Documented By: STEVE Vital Signs Vital signs: Vital Signs - 8 hr 03/07/22 16:06 03/07/22 16:09 03/07/22 16:10 Temperature 98.2 F Pulse Rate 139 H 144 H Respiratory Rate 20 Blood Pressure 122/80 122/80 Pulse Oximetry 100 100 Oxygen Delivery Method Room Air 03/07/22 16:10 03/07/22 16:30 03/07/22 17:03 Temperature Pulse Rate 143 H 123 H 123 H Respiratory Rate 17 12 Blood Pressure Pulse Oximetry 100 100 Oxygen Delivery Method 03/07/22 17:29 03/07/22 17:29 03/07/22 17:30 Temperature Pulse Rate 119 H Respiratory Rate 15 Blood Pressure 142/83 H 128/67 Pulse Oximetry 100 Oxygen Delivery Method 03/07/22 17:30 03/07/22 18:00 03/07/22 18:02 Temperature Pulse Rate 117 H 128 H Respiratory Rate 14 24 Blood Pressure 129/70 Pulse Oximetry 100 96 Oxygen Delivery Method 03/07/22 18:02 Temperature Pulse Rate 125 H Respiratory Rate 24 Blood Pressure Pulse Oximetry 100 Oxygen Delivery Method MDM - Syncope <BRENDA Delacruz - Last Filed: 03/07/22 20:02> Lab Data Result diagrams: 03/07/22 16:20 03/07/22 16:20 Labs: Lab Results 03/07/22 03/07/22 03/07/22 Range/Units 16:20 16:20 16:20 WBC 18.9 H (4.5-11.0) X10^3/uL RBC 4.29 (4.0-5.2) X10^6/uL Hgb 12.8 (12.0-16.0) g/dL Hct 38.1 (36-46) % MCV 88.8 (80-100) fL MCH 30.0 (26-34) PG MCHC 33.7 (30-36) % RDW 12.7 (11.6-14.8) % Plt Count 385 (150-400) X10^3/uL Neut % (Auto) 76.2 H (50-75) % Lymph % (Auto) 13.9 L (25-40) % [place] % (Auto) 8.9 (3-14) % Eos % (Auto) 0.7 L (2-4) % Baso % (Auto) 0.3 (0-2) % Neut # (Auto) 41792 H (6878-8420) /uL Lymph # (Auto) 2600 (6467-2152) /uL [place] # (Auto) 1700 H (0-900) /uL Eos # (Auto) 100 (0-450) /uL Baso # (Auto) 100 (0-100) /uL Sodium 138 (137-145) mmol/L Potassium 4.0 (3.4-5.1) mmol/L Chloride 100 (98-107) mmol/L Carbon Dioxide 24 (22-32) mmol/L BUN 12 (7-17) mg/dL Creatinine 0.63 (0.52-1.04) mg/dL Estimated GFR > 60 (>60) mL/min BUN/Creatinine Ratio 19.0 (6-22) Glucose 115 H (70-100) mg/dL Lactate 5.3 H* (0.7-2.1) mmol/L Calcium 9.4 (8.4-10.2) mg/dL Phosphorus 1.7 L (2.5-4.5) mg/dL Magnesium 1.8 (1.6-2.3) mg/dL Total Bilirubin 0.9 (0.2-1.3) mg/dL AST 35 (14-36) IU/L ALT 20 (<35) IU/L Alkaline Phosphatase 82 (38-126) U/L Total Creatine Kinase (30-135) U/L CK-MB (CK-2) CK-MB (CK-2) Rel Index Troponin I (0.01-0.034) ng/mL C-Reactive Protein 13.1 H (<1.0) mg/dL NT-Pro-B Natriuret Pep (<125) pg/mL Total Protein 8.4 H (6.3-8.2) g/dL Albumin 4.4 (3.5-5.0) g/dL Globulin 4.0 (1.7-4.1) g/dL Albumin/Globulin Ratio 1.1 (1.0-2.8) Procalcitonin (<0.5) ng/mL Urine Color Urine Appearance Urine pH (4.5-8.0) Ur Specific [place] (1.000-1.035) Urine Protein (Negative) Urine Glucose (UA) (Negative) g/dL Urine Ketones (NEGATIVE) Urine Occult Blood (Negative) Urine Nitrate (Negative) Urine Bilirubin (NEGATIVE) Urine Urobilinogen (0.2) E.U./dL Ur Leukocyte Esterase (NEGATIVE) Urine RBC (0-5/HPF) Urine WBC (0-5/HPF) Ur Squamous Epith Cells (0-5/HPF) Amorphous Sediment Urine Bacteria (None) Urine Mucus (Negative) Ur Culture Indicated? U Opiates 300ng/mL cut (Negative) Ur Oxycodone Screen (Negative) Urine Methadone Screen (Negative) Ur Barbiturates Screen (Negative) U Tricyclic Antidepress (Negative) Ur Phencyclidine Scrn (Negative) Ur Amphetamines Screen (Negative) U Methamphetamines Scrn (Negative) Ur MDMA Scrn (Ecstasy) (Negative) U Benzodiazepines Scrn (Negative) Urine Cocaine Screen (Negative) U Marijuana (THC) Screen (Negative) SARS-CoV-2 (PCR) (Negative) 03/07/22 03/07/22 03/07/22 Range/Units 16:20 16:20 16:20 WBC (4.5-11.0) X10^3/uL RBC (4.0-5.2) X10^6/uL Hgb (12.0-16.0) g/dL Hct (36-46) % MCV (80-100) fL MCH (26-34) PG MCHC (30-36) % RDW (11.6-14.8) % Plt Count (150-400) X10^3/uL Neut % (Auto) (50-75) % Lymph % (Auto) (25-40) % [place] % (Auto) (3-14) % Eos % (Auto) (2-4) % Baso % (Auto) (0-2) % Neut # (Auto) (2686-6674) /uL Lymph # (Auto) (8121-6629) /uL [place] # (Auto) (0-900) /uL Eos # (Auto) (0-450) /uL Baso # (Auto) (0-100) /uL Sodium (137-145) mmol/L Potassium (3.4-5.1) mmol/L Chloride (98-107) mmol/L Carbon Dioxide (22-32) mmol/L BUN (7-17) mg/dL Creatinine (0.52-1.04) mg/dL Estimated GFR (>60) mL/min BUN/Creatinine Ratio (6-22) Glucose (70-100) mg/dL Lactate (0.7-2.1) mmol/L Calcium (8.4-10.2) mg/dL Phosphorus (2.5-4.5) mg/dL Magnesium (1.6-2.3) mg/dL Total Bilirubin (0.2-1.3) mg/dL AST (14-36) IU/L ALT (<35) IU/L Alkaline Phosphatase (38-126) U/L Total Creatine Kinase 32 (30-135) U/L CK-MB (CK-2) TNP CK-MB (CK-2) Rel Index TNP Troponin I < 0.012 (0.01-0.034) ng/mL C-Reactive Protein (<1.0) mg/dL NT-Pro-B Natriuret Pep 511 H (<125) pg/mL Total Protein (6.3-8.2) g/dL Albumin (3.5-5.0) g/dL Globulin (1.7-4.1) g/dL Albumin/Globulin Ratio (1.0-2.8) Procalcitonin 0.10 (<0.5) ng/mL Urine Color Urine Appearance Urine pH (4.5-8.0) Ur Specific [place] (1.000-1.035) Urine Protein (Negative) Urine Glucose (UA) (Negative) g/dL Urine Ketones (NEGATIVE) Urine Occult Blood (Negative) Urine Nitrate (Negative) Urine Bilirubin (NEGATIVE) Urine Urobilinogen (0.2) E.U./dL Ur Leukocyte Esterase (NEGATIVE) Urine RBC (0-5/HPF) Urine WBC (0-5/HPF) Ur Squamous Epith Cells (0-5/HPF) Amorphous Sediment Urine Bacteria (None) Urine Mucus (Negative) Ur Culture Indicated? U Opiates 300ng/mL cut (Negative) Ur Oxycodone Screen (Negative) Urine Methadone Screen (Negative) Ur Barbiturates Screen (Negative) U Tricyclic Antidepress (Negative) Ur Phencyclidine Scrn (Negative) Ur Amphetamines Screen (Negative) U Methamphetamines Scrn (Negative) Ur MDMA Scrn (Ecstasy) (Negative) U Benzodiazepines Scrn (Negative) Urine Cocaine Screen (Negative) U Marijuana (THC) Screen (Negative) SARS-CoV-2 (PCR) (Negative) 03/07/22 03/07/22 03/07/22 Range/Units 17:20 17:20 17:30 WBC (4.5-11.0) X10^3/uL RBC (4.0-5.2) X10^6/uL Hgb (12.0-16.0) g/dL Hct (36-46) % MCV (80-100) fL MCH (26-34) PG MCHC (30-36) % RDW (11.6-14.8) % Plt Count (150-400) X10^3/uL Neut % (Auto) (50-75) % Lymph % (Auto) (25-40) % [place] % (Auto) (3-14) % Eos % (Auto) (2-4) % Baso % (Auto) (0-2) % Neut # (Auto) (2043-7966) /uL Lymph # (Auto) (5176-2766) /uL [place] # (Auto) (0-900) /uL Eos # (Auto) (0-450) /uL Baso # (Auto) (0-100) /uL Sodium (137-145) mmol/L Potassium (3.4-5.1) mmol/L Chloride (98-107) mmol/L Carbon Dioxide (22-32) mmol/L BUN (7-17) mg/dL Creatinine (0.52-1.04) mg/dL Estimated GFR (>60) mL/min BUN/Creatinine Ratio (6-22) Glucose (70-100) mg/dL Lactate (0.7-2.1) mmol/L Calcium (8.4-10.2) mg/dL Phosphorus (2.5-4.5) mg/dL Magnesium (1.6-2.3) mg/dL Total Bilirubin (0.2-1.3) mg/dL AST (14-36) IU/L ALT (<35) IU/L Alkaline Phosphatase (38-126) U/L Total Creatine Kinase (30-135) U/L CK-MB (CK-2) CK-MB (CK-2) Rel Index Troponin I (0.01-0.034) ng/mL C-Reactive Protein (<1.0) mg/dL NT-Pro-B Natriuret Pep (<125) pg/mL Total Protein (6.3-8.2) g/dL Albumin (3.5-5.0) g/dL Globulin (1.7-4.1) g/dL Albumin/Globulin Ratio (1.0-2.8) Procalcitonin (<0.5) ng/mL Urine Color Yellow Urine Appearance Clear Urine pH 8.5 H (4.5-8.0) Ur Specific [place] 1.010 (1.000-1.035) Urine Protein Trace H (Negative) Urine Glucose (UA) Negative (Negative) g/dL Urine Ketones Negative (NEGATIVE) Urine Occult Blood Negative (Negative) Urine Nitrate Negative (Negative) Urine Bilirubin Negative (NEGATIVE) Urine Urobilinogen 1.0 (0.2) E.U./dL Ur Leukocyte Esterase Negative (NEGATIVE) Urine RBC None seen (0-5/HPF) Urine WBC 1-5/hpf (0-5/HPF) Ur Squamous Epith Cells 5-10 /hpf H (0-5/HPF) Amorphous Sediment 1+ Urine Bacteria Occasional (0-1) (None) Urine Mucus 1+ H (Negative) Ur Culture Indicated? Cult not indicated U Opiates 300ng/mL cut Negative (Negative) Ur Oxycodone Screen Negative (Negative) Urine Methadone Screen Negative (Negative) Ur Barbiturates Screen Negative (Negative) U Tricyclic Antidepress Positive H (Negative) Ur Phencyclidine Scrn Negative (Negative) Ur Amphetamines Screen Positive H (Negative) U Methamphetamines Scrn Positive H (Negative) Ur MDMA Scrn (Ecstasy) Negative (Negative) U Benzodiazepines Scrn Negative (Negative) Urine Cocaine Screen Negative (Negative) U Marijuana (THC) Screen Positive H (Negative) SARS-CoV-2 (PCR) Negative (Negative) Point of Care Testing Test Results Negative Imaging Data Chest x-ray: Radiologist's Impression: PROCEDURE:? XR CHEST 2V ? INDICATIONS:? tachycardia ? TECHNIQUE:? 2 views of the chest were acquired.? ? COMPARISON:? [facility], , XR CHEST 1V, 05/05/2021, 1:42. ? FINDINGS:? ? Surgical changes and devices:? None.? ? Lungs and pleura:? Lungs are clear.? No pleural effusions or pneumothorax.? ? Mediastinum:? Mediastinal contours are normal.? Heart size is normal.? ? Bones and chest wall:? No suspicious bony abnormalities.? Soft tissues appear unremarkable.? ? IMPRESSION:? No evidence acute pulmonary process. ? ? ? Dictated by: Eduardo Macias M.D. on 03/07/2022 at 17:04 ? ? Approved by: Eduardo Macias M.D. on 03/07/2022 at 17:04 ? CT scan - head: Radiologist's Impression: PROCEDURE:? CT HEAD/BRAIN WO CON ? INDICATIONS:? fall 2 days ago, hit head ? TECHNIQUE:? Noncontrast 4.5 mm thick angled axial sections acquired from the foramen magnum to the vertex, with coronal and sagittal reformats.? For radiation dose reduction, the following was used:? automated exposure control, adjustment of mA and/or kV according to patient size.? ? COMPARISON:? [facility], CT, CT HEAD/BRAIN WO CON, 05/18/2019, 22:16. ? FINDINGS:? Image quality:? Excellent.? ? CSF spaces:? Basal cisterns are patent.? No extra-axial fluid collections.? Ve ntricles are normal in size and shape.? ? Brain:? No midline shift.? No intracranial masses or hemorrhage.? [place]-white matter interface is normal.? ? Skull and face:? Calvarium and visualized facial bones are intact, without suspicious lesions.? ? Sinuses:? Left sphenoid sinus opacification ? IMPRESSION:? ? No intracranial hemorrhage or mass effect. ? Left sphenoid mucosal sinus disease, new from the prior ? ? ? Approved by: Ever Spence M.D. on 03/07/2022 at 16:05? CT scan - abdomen/pelvis: Radiologist's Impression: PROCEDURE:? CT ABDOMEN PELVIS W CON ? INDICATIONS:? pain under ribs, pt w/sepsis, unknown source, kidney/bladder ? TECHNIQUE:? After the administration of intravenous contrast, axial sections acquired from the lung bases to the pubic symphysis.? Coronal and sagittal reformats were performed.? For radiation dose reduction, the following was used:? automated exposure control, adjustment of mA and/or kV according to patient size.? ? COMPARISON:? None. ? FINDINGS:? Image quality:? Images are mildly degraded by respiratory motion.? Diagnostic information is obtained..? ? Lung bases:? Unremarkable. Heart:? No significant findings. ? ABDOMEN: Liver:? Unremarkable.? ? Gallbladder:? Unremarkable.? Biliary ducts:? Unremarkable.? ? Pancreas:? Unremarkable.? ? Spleen:? Unremarkable.? ? Adrenal Glands:? Unremarkable.? ? Kidneys and Ureters:? Unremarkable.? ? ? Stomach and Bowel:? Bowel wall thickening is seen throughout the descending and sigmoid colon and the rectum, which may be related to underdistention but is suspicious for a nonspecific proctocolitis.? Small bowel loops are unremarkable. Peritoneum:? No abnormal intraperitoneal fluid.? No free air.? ? Ventral Wall: ? No hernias.? Abdominal Nodes:? No retroperitoneal or mesenteric adenopathy by size criteria.? Vessels:? Aorta and inferior vena cava are normal in size.? ? PELVIS: Pelvic Organs:? Unremarkable.? ? Bladder:? Unremarkable.? ? Pelvic Nodes: No enlarged lymph nodes.? Miscellaneous: No hernias are seen. ? ? ? Bones:? Unremarkable.? IMPRESSION:? Mild bowel wall thickening involving the descending and sigmoid colon and the rectum may be related to underdistention, but is suspicious for a nonspecific proctocolitis. Otherwise, no acute abnormality is seen in the abdomen or pelvis.? ? Dictated by: Trey Barrientos M.D. on 03/07/2022 at 16:52 ? ? Approved by: Trey Barrientos M.D. on 03/07/2022 at 16:58 ? ECG Data Interpretation: EKG independently reviewed by myself at 1627 and shows sinus tachycardia at 135 bpm with regular axis and intervals. No STEMI, ST segment changes, arrhythmia, or acute ischemic changes. Patient's prior EKG from 01/14/2021 shows normal sinus rhythm with a rate of 84, nonspecific T-wave abnormalities are similar in nature although at a lower rate when compared with today's EKG. [facility] Narrative Medical decision making narrative: This is a 36-year-old female presents to the emergency department via EMS with 10/10 pain in her upper abdomen below her ribs. Patient was afebrile however she was tachycardic and appeared distress. She states she had a fall a few days ago and hit her head but did not get evaluated. Today in the emergency department a noncontrast head CT was obtained which shows no intracranial hemorrhage or mass effect but does show left sphenoid mucosal sinus disease which is new from her prior head CT. Chest x-ray does not show any acute cardiopulmonary abnormalities. Patient has a marked leukocytosis of 18.9, no anemia, hemo concentration with presumed dehydration, a left shift with neutrophil count of 14,400. No significant electrolyte abnormalities other than her phosphorus at 1.7. Her CRP is markedly elevated at 13.1 and her BNP is elevated above her prior of 132, today it is 511. No elevation in her liver enzymes, she has lactate which is critical at 5.3. She was given 2 L of lactated Ringer's for this. No hypomagnesemia or elevated total bilirubin. Urine dip shows leukocytes, bilirubin and was sent for microscopy, urine culture, and drug screen. Abdomen pelvis CT was obtained for patient's report of pain, below the diaphragm without elevation of her liver enzymes. CT of her abdomen shows mild bowel wall thickening involving the descending and sigmoid colon and rectum, may be related to underdistention but suspicious for nonspecific proctocolitis. This is most likely proctocolitis, patient denies any receptive anal intercourse, denies any abnormal vaginal discharge. With called the patient's room at 19:00 when patient states that she wanted to leave because she states her pain is so significant and nobody is taking her seriously and she has not received any additional pain medicine. Patient states she does not feel safe here and that her pain has only gotten worse and she has not been treated for her pain. Patient was reassured that pain medication was ordered and unfortunately was not given, nursing went to the bedside to give him medication, patient was talked out of leaving Against Medical Advice at this time. Consultation with Dr. Hoffmann from the hospitalist service about patient's case and she agrees that the patient does need to come in and be admitted for sepsis and IV antibiotics. She states that the night hospitalist will come down after shift change to admit the patient. Update on lab work, patient's drug screen is positive for amphetamines, methamphetamines, and marijuana. Her COVID PCR is negative. When the night hospitalist came down to assess the patient, nursing informed me that the patient left Against Medical Advice. The patient told me that she was very distressed about her untreated pain in the emergency department, unfortunately she only received her 1st dose of Toradol and 0.5 mg of hydromorphone prior to her pain escalating and her wanting to leave due to this. By the time the hospitalist came down to admit her, patient was already gone and I was unaware that she was attempting to leave. 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 <Benjie Garcia, DO - Last Filed: 03/08/22 02:23> Lab Data Labs: Lab Results 03/07/22 03/07/22 03/07/22 Range/Units 16:20 16:20 16:20 WBC 18.9 H (4.5-11.0) X10^3/uL RBC 4.29 (4.0-5.2) X10^6/uL Hgb 12.8 (12.0-16.0) g/dL Hct 38.1 (36-46) % MCV 88.8 (80-100) fL MCH 30.0 (26-34) PG MCHC 33.7 (30-36) % RDW 12.7 (11.6-14.8) % Plt Count 385 (150-400) X10^3/uL Neut % (Auto) 76.2 H (50-75) % Lymph % (Auto) 13.9 L (25-40) % [place] % (Auto) 8.9 (3-14) % Eos % (Auto) 0.7 L (2-4) % Baso % (Auto) 0.3 (0-2) % Neut # (Auto) 66350 H (0047-0769) /uL Lymph # (Auto) 2600 (3496-1935) /uL [place] # (Auto) 1700 H (0-900) /uL Eos # (Auto) 100 (0-450) /uL Baso # (Auto) 100 (0-100) /uL Sodium 138 (137-145) mmol/L Potassium 4.0 (3.4-5.1) mmol/L Chloride 100 (98-107) mmol/L Carbon Dioxide 24 (22-32) mmol/L BUN 12 (7-17) mg/dL Creatinine 0.63 (0.52-1.04) mg/dL Estimated GFR > 60 (>60) mL/min BUN/Creatinine Ratio 19.0 (6-22) Glucose 115 H (70-100) mg/dL Lactate 5.3 H* (0.7-2.1) mmol/L Calcium 9.4 (8.4-10.2) mg/dL Phosphorus 1.7 L (2.5-4.5) mg/dL Magnesium 1.8 (1.6-2.3) mg/dL Total Bilirubin 0.9 (0.2-1.3) mg/dL AST 35 (14-36) IU/L ALT 20 (<35) IU/L Alkaline Phosphatase 82 (38-126) U/L Total Creatine Kinase (30-135) U/L CK-MB (CK-2) CK-MB (CK-2) Rel Index Troponin I (0.01-0.034) ng/mL C-Reactive Protein 13.1 H (<1.0) mg/dL NT-Pro-B Natriuret Pep (<125) pg/mL Total Protein 8.4 H (6.3-8.2) g/dL Albumin 4.4 (3.5-5.0) g/dL Globulin 4.0 (1.7-4.1) g/dL Albumin/Globulin Ratio 1.1 (1.0-2.8) Procalcitonin (<0.5) ng/mL Urine Color Urine Appearance Urine pH (4.5-8.0) Ur Specific [place] (1.000-1.035) Urine Protein (Negative) Urine Glucose (UA) (Negative) g/dL Urine Ketones (NEGATIVE) Urine Occult Blood (Negative) Urine Nitrate (Negative) Urine Bilirubin (NEGATIVE) Urine Urobilinogen (0.2) E.U./dL Ur Leukocyte Esterase (NEGATIVE) Urine RBC (0-5/HPF) Urine WBC (0-5/HPF) Ur Squamous Epith Cells (0-5/HPF) Amorphous Sediment Urine Bacteria (None) Urine Mucus (Negative) Ur Culture Indicated? U Opiates 300ng/mL cut (Negative) Ur Oxycodone Screen (Negative) Urine Methadone Screen (Negative) Ur Barbiturates Screen (Negative) U Tricyclic Antidepress (Negative) Ur Phencyclidine Scrn (Negative) Ur Amphetamines Screen (Negative) U Methamphetamines Scrn (Negative) Ur MDMA Scrn (Ecstasy) (Negative) U Benzodiazepines Scrn (Negative) Urine Cocaine Screen (Negative) U Marijuana (THC) Screen (Negative) SARS-CoV-2 (PCR) (Negative) 03/07/22 03/07/22 03/07/22 Range/Units 16:20 16:20 16:20 WBC (4.5-11.0) X10^3/uL RBC (4.0-5.2) X10^6/uL Hgb (12.0-16.0) g/dL Hct (36-46) % MCV (80-100) fL MCH (26-34) PG MCHC (30-36) % RDW (11.6-14.8) % Plt Count (150-400) X10^3/uL Neut % (Auto) (50-75) % Lymph % (Auto) (25-40) % [place] % (Auto) (3-14) % Eos % (Auto) (2-4) % Baso % (Auto) (0-2) % Neut # (Auto) (1278-6438) /uL Lymph # (Auto) (2901-8621) /uL [place] # (Auto) (0-900) /uL Eos # (Auto) (0-450) /uL Baso # (Auto) (0-100) /uL Sodium (137-145) mmol/L Potassium (3.4-5.1) mmol/L Chloride (98-107) mmol/L Carbon Dioxide (22-32) mmol/L BUN (7-17) mg/dL Creatinine (0.52-1.04) mg/dL Estimated GFR (>60) mL/min BUN/Creatinine Ratio (6-22) Glucose (70-100) mg/dL Lactate (0.7-2.1) mmol/L Calcium (8.4-10.2) mg/dL Phosphorus (2.5-4.5) mg/dL Magnesium (1.6-2.3) mg/dL Total Bilirubin (0.2-1.3) mg/dL AST (14-36) IU/L ALT (<35) IU/L Alkaline Phosphatase (38-126) U/L Total Creatine Kinase 32 (30-135) U/L CK-MB (CK-2) TNP CK-MB (CK-2) Rel Index TNP Troponin I < 0.012 (0.01-0.034) ng/mL C-Reactive Protein (<1.0) mg/dL NT-Pro-B Natriuret Pep 511 H (<125) pg/mL Total Protein (6.3-8.2) g/dL Albumin (3.5-5.0) g/dL Globulin (1.7-4.1) g/dL Albumin/Globulin Ratio (1.0-2.8) Procalcitonin 0.10 (<0.5) ng/mL Urine Color Urine Appearance Urine pH (4.5-8.0) Ur Specific [place] (1.000-1.035) Urine Protein (Negative) Urine Glucose (UA) (Negative) g/dL Urine Ketones (NEGATIVE) Urine Occult Blood (Negative) Urine Nitrate (Negative) Urine Bilirubin (NEGATIVE) Urine Urobilinogen (0.2) E.U./dL Ur Leukocyte Esterase (NEGATIVE) Urine RBC (0-5/HPF) Urine WBC (0-5/HPF) Ur Squamous Epith Cells (0-5/HPF) Amorphous Sediment Urine Bacteria (None) Urine Mucus (Negative) Ur Culture Indicated? U Opiates 300ng/mL cut (Negative) Ur Oxycodone Screen (Negative) Urine Methadone Screen (Negative) Ur Barbiturates Screen (Negative) U Tricyclic Antidepress (Negative) Ur Phencyclidine Scrn (Negative) Ur Amphetamines Screen (Negative) U Methamphetamines Scrn (Negative) Ur MDMA Scrn (Ecstasy) (Negative) U Benzodiazepines Scrn (Negative) Urine Cocaine Screen (Negative) U Marijuana (THC) Screen (Negative) SARS-CoV-2 (PCR) (Negative) 03/07/22 03/07/22 03/07/22 Range/Units 17:20 17:20 17:30 WBC (4.5-11.0) X10^3/uL RBC (4.0-5.2) X10^6/uL Hgb (12.0-16.0) g/dL Hct (36-46) % MCV (80-100) fL MCH (26-34) PG MCHC (30-36) % RDW (11.6-14.8) % Plt Count (150-400) X10^3/uL Neut % (Auto) (50-75) % Lymph % (Auto) (25-40) % [place] % (Auto) (3-14) % Eos % (Auto) (2-4) % Baso % (Auto) (0-2) % Neut # (Auto) (2781-1855) /uL Lymph # (Auto) (0755-2857) /uL [place] # (Auto) (0-900) /uL Eos # (Auto) (0-450) /uL Baso # (Auto) (0-100) /uL Sodium (137-145) mmol/L Potassium (3.4-5.1) mmol/L Chloride (98-107) mmol/L Carbon Dioxide (22-32) mmol/L BUN (7-17) mg/dL Creatinine (0.52-1.04) mg/dL Estimated GFR (>60) mL/min BUN/Creatinine Ratio (6-22) Glucose (70-100) mg/dL Lactate (0.7-2.1) mmol/L Calcium (8.4-10.2) mg/dL Phosphorus (2.5-4.5) mg/dL Magnesium (1.6-2.3) mg/dL Total Bilirubin (0.2-1.3) mg/dL AST (14-36) IU/L ALT (<35) IU/L Alkaline Phosphatase (38-126) U/L Total Creatine Kinase (30-135) U/L CK-MB (CK-2) CK-MB (CK-2) Rel Index Troponin I (0.01-0.034) ng/mL C-Reactive Protein (<1.0) mg/dL NT-Pro-B Natriuret Pep (<125) pg/mL Total Protein (6.3-8.2) g/dL Albumin (3.5-5.0) g/dL Globulin (1.7-4.1) g/dL Albumin/Globulin Ratio (1.0-2.8) Procalcitonin (<0.5) ng/mL Urine Color Yellow Urine Appearance Clear Urine pH 8.5 H (4.5-8.0) Ur Specific [place] 1.010 (1.000-1.035) Urine Protein Trace H (Negative) Urine Glucose (UA) Negative (Negative) g/dL Urine Ketones Negative (NEGATIVE) Urine Occult Blood Negative (Negative) Urine Nitrate Negative (Negative) Urine Bilirubin Negative (NEGATIVE) Urine Urobilinogen 1.0 (0.2) E.U./dL Ur Leukocyte Esterase Negative (NEGATIVE) Urine RBC None seen (0-5/HPF) Urine WBC 1-5/hpf (0-5/HPF) Ur Squamous Epith Cells 5-10 /hpf H (0-5/HPF) Amorphous Sediment 1+ Urine Bacteria Occasional (0-1) (None) Urine Mucus 1+ H (Negative) Ur Culture Indicated? Cult not indicated U Opiates 300ng/mL cut Negative (Negative) Ur Oxycodone Screen Negative (Negative) Urine Methadone Screen Negative (Negative) Ur Barbiturates Screen Negative (Negative) U Tricyclic Antidepress Positive H (Negative) Ur Phencyclidine Scrn Negative (Negative) Ur Amphetamines Screen Positive H (Negative) U Methamphetamines Scrn Positive H (Negative) Ur MDMA Scrn (Ecstasy) Negative (Negative) U Benzodiazepines Scrn Negative (Negative) Urine Cocaine Screen Negative (Negative) U Marijuana (THC) Screen Positive H (Negative) SARS-CoV-2 (PCR) Negative (Negative) Point of Care Testing Test Results Negative Discharge Plan Departure Patient Disposition: Admitted As Inpatient Clinical Impression: Proctocolitis, Elevated brain natriuretic peptide (BNP) level, Dehydration, Hypophosphatemia, CRP elevated Abdominal pain Qualifiers: Abdominal location: epigastric Qualified Code(s): R10.13 - Epigastric pain Admit Date/Time: 03/07/22 18:29 Admit Provider: Dari Almaguer <Benjie Garcia DO - Last Filed: 03/08/22 02:23> Cosign ED Attending Cosignature Attestation: I was immediately available in the department for consultation. This documentation has been reviewed and I agree with assessment and plan. Supervised by Benjie Garcia DO
[2022-03-07 16:31] LABS: Add Manual Diff / Slide Review NO; Basophils Absolute Auto 100 /uL (0-100); Basophils Percent Auto 0.3 % (0-2); Eosinophils Absolute Auto 100 /uL (0-450); Eosinophils Percent Auto 0.7 % (2-4); Hematocrit 38.1 % (36-46); Hemoglobin 12.8 g/dL (12.0-16.0); Lymphocytes Absolute Auto 2600 /uL (1100-4500); Lymphocytes Percent Auto 13.9 % (25-40); Mean Corpuscular HGB Conc 33.7 % (30-36); Mean Corpuscular Volume 88.8 fL (80-100); Monocytes Absolute Auto 1700 /uL (0-900); Monocytes Percent Auto 8.9 % (3-14); Neutrophils Absolute Auto 14400 /uL (1500-7000); Neutrophils Percent Auto 76.2 % (50-75); Platelet Count 385 X10^3/uL (150-400); Red Blood Cell Count 4.29 X10^6/uL (4.0-5.2); Red Cell Distribution Width 12.7 % (11.6-14.8); White Blood Cell Count 18.9 X10^3/uL (4.5-11.0)
[2022-03-07] MEDS: diazePAM 10 MG/2 ML SYRINGE 2 MG IV (16:32)
[2022-03-07] MEDS: KETOROLAC 30 MG/ML VIAL 15 MG IV (16:33)
[2022-03-07 16:43] LABS: Creatine Kinase 32 U/L (30-135)
[2022-03-07 16:47] LABS: Alanine Aminotransferase 20 IU/L (<35); Albumin 4.4 g/dL (3.5-5.0); Albumin Globulin Ratio 1.1 (1.0-2.8); Alkaline Phosphatase 82 U/L (38-126); Aspartate Aminotransferase 35 IU/L (14-36); Bilirubin Total 0.9 mg/dL (0.2-1.3); Blood Urea Nitrogen 12 mg/dL (7-17); Calcium 9.4 mg/dL (8.4-10.2); Carbon Dioxide 24 mmol/L (22-32); Chloride 100 mmol/L (98-107); Estimated Glomerular Filt Rate > 60 mL/min (>60); Glucose 115 mg/dL (70-100); Magnesium 1.8 mg/dL (1.6-2.3); Phosphorous 1.7 mg/dL (2.5-4.5); Sodium 138 mmol/L (137-145); Total Protein 8.4 g/dL (6.3-8.2)
[2022-03-07 16:53] LABS: NT-proBNP (BNP-Adult 18+) 511 pg/mL (<125)
[2022-03-07 16:56] LABS: Troponin I < 0.012 ng/mL (0.01-0.034)
[2022-03-07 16:57] LABS: HEMOLYSIS 44 (0-50)
[2022-03-07 16:58] LABS: C-Reactive Protein Quant 13.1 mg/dL (<1.0)
[2022-03-07 17:04] LABS: Lactate (Lactic Acid) 5.3 mmol/L (0.7-2.1)
--- NOTE | 2022-03-07 17:15 | DI.CT.S_ITS ---
PROCEDURE: CT ABDOMEN PELVIS W CON INDICATIONS: pain under ribs, pt w/sepsis, unknown source, kidney/bladder TECHNIQUE: After the administration of intravenous contrast, axial sections acquired from the lung bases to the pubic symphysis. Coronal and sagittal reformats were performed. For radiation dose reduction, the following was used: automated exposure control, adjustment of mA and/or kV according to patient size. COMPARISON: None. FINDINGS: Image quality: Images are mildly degraded by respiratory motion. Diagnostic information is obtained.. Lung bases: Unremarkable. Heart: No significant findings. ABDOMEN: Liver: Unremarkable. Gallbladder: Unremarkable. Biliary ducts: Unremarkable. Pancreas: Unremarkable. Spleen: Unremarkable. Adrenal Glands: Unremarkable. Kidneys and Ureters: Unremarkable. Stomach and Bowel: Bowel wall thickening is seen throughout the descending and sigmoid colon and the rectum, which may be related to underdistention but is suspicious for a nonspecific proctocolitis. Small bowel loops are unremarkable. Peritoneum: No abnormal intraperitoneal fluid. No free air. Ventral Wall: No hernias. Abdominal Nodes: No retroperitoneal or mesenteric adenopathy by size criteria. Vessels: Aorta and inferior vena cava are normal in size. PELVIS: Pelvic Organs: Unremarkable. Bladder: Unremarkable. Pelvic Nodes: No enlarged lymph nodes. Miscellaneous: No hernias are seen. Bones: Unremarkable. IMPRESSION: Mild bowel wall thickening involving the descending and sigmoid colon and the rectum may be related to underdistention, but is suspicious for a nonspecific proctocolitis. Otherwise, no acute abnormality is seen in the abdomen or pelvis. Dictated by: Trey Barrientos M.D. on 03/07/2022 at 16:52 Approved by: Trey Barrientos M.D. on 03/07/2022 at 16:58
[2022-03-07] MEDS: cefTRIAXone 2,000 MG in SODIUM CHLORIDE 0.9% 100 ML 200 MG IV (17:48)
[2022-03-07] MEDS: HYDROMORPHONE 0.5 MG INJ IV (17:48)
[2022-03-07] MEDS: LACTATED RINGERS 1,000 ML 1000 ML IV (17:49)
[2022-03-07 18:20] LABS: Reflexed Lactate in 2 Hours Y
[2022-03-07 18:27] LABS: COVID19 -Nasal RAPID Negative (Negative)
[2022-03-07 18:47] LABS: Appearance Urine UA CLEAR; Bilirubin Urine UA NEGATIVE (NEGATIVE); Color Urine UA YELLOW; Glucose Urine UA NEGATIVE (Negative); Ketones Urine UA NEGATIVE (NEGATIVE); Leukocyte Esterase Urine UA NEGATIVE (NEGATIVE); Nitrite Urine UA NEGATIVE (Negative); Occult Blood Urine UA NEGATIVE (Negative); Protein Urine UA TRACE (Negative)
[2022-03-07 18:56] LABS: UR Morphine/Opiate cutoff 300 Negative (Negative); Ur Creatinine Normal (Normal); Ur Specific Gravity Normal (Normal); Urine Amphetamines Positive (Negative); Urine Cocaine Negative (Negative); Urine Methamphetamines Positive (Negative); Urine Tetrahydrocannabinol Positive (Negative); Urine pH Normal (Normal)
[2022-03-07 18:57] LABS: Urine Barbiturates Negative (Negative); Urine Benzodiazepines Negative (Negative); Urine MDMA Negative (Negative); Urine Methadone Negative (Negative); Urine Oxycodone Negative (Negative); Urine Phencyclidine Negative (Negative); Urine Tricyclic Antidepressant Positive (Negative)
[2022-03-07 19:00] LABS: pH Urine UA 8.5 (4.5-8.0)
[2022-03-07 19:01] LABS: Amorphous Sediment Urine 1+; Bacteria Urine Occasional (0-1); Culture Indicated Urine Cult Not Indicated; Mucus Urine 1+ (Negative); RBC Urine None Seen (0-5/HPF); Squamous Epithelial Cell Urine 5-10 /HPF (0-5/HPF); WBC Urine 1-5/HPF (0-5/HPF)
[2022-03-07] MEDS: HYDROMORPHONE 1 MG INJ IV (19:06)
[2022-03-07 19:10] LABS: Lactate 2HR (Lactic Acid Rflx) 1.8 mmol/L (0.7-2.1)
--- NOTE | 2022-03-07 19:12 | PC.NURSE ---
Addendum entered by Viviana Pickering R.N. 03/07/22 19:26: In addition to opioid pain medicine, patient also received 15 mg Toradol and 2mg valium. In total. patient received 1.5mg dilaudid, 15mg Toradol and 2mg valium between 1605 and 1916. In addition to antibiotics. Original Note: Patient missed her daily methadone dose today and stated she was in pain all over upon arrival. Patient was repeatedly verbally aggressive, rude and ranting profanities towards multiple nursing staff since arrival. floor cleaner aware. floor cleaner was poorly treated by patient, as well. Told charge lpn to fuck off when being assisted. Patient is stating she wants to leave because she is not receiving pain medicine. Patient received pain medicine 2x. Pt left immediately after receiving second dose of pain medicine. Patient left AMA, stated she wasn't putting up with this fucking bullshit.
== END 2022-03-07 19:17 | disposition admitted as inpatient to this hospital (09) ==
LOC: ED 18:30 → AC 19:57
PROVIDERS: Emergency Provider Nurse Practitioner Critical Care Medicine; PCP Nurse Practitioner Gerontology; Referring Provider Nurse Practitioner Critical Care Medicine
DX: K52.9 Noninfective gastroenteritis and colitis, unspecified (principal); R10.13 Epigastric pain; R07.81 Pleurodynia; R79.89 Other specified abnormal findings of blood chemistry; E83.39 Other disorders of phosphorus metabolism; R79.82 Elevated C-reactive protein (CRP); E86.0 Dehydration; R00.0 Tachycardia, unspecified; S09.90XA Unspecified injury of head, initial encounter; W19.XXXA Unspecified fall, initial encounter; Z20.822 Contact with and (suspected) exposure to COVID-19
CPT/HCPCS: 70450; 71046; 74177; 80053; 80305; 81001; 81025; 82550; 83605; 83735; 83880; 84100; 84145; 84484; 85025; 86140; 87040; 87635; 93005; 93010; 96365; 96375; 96376; 99283; 99284; C9803; J0696; J1170; J1885; J3360; Q9967

== ENCOUNTER 2022-05-15 | Emergency (ER) | payer OTHER, MEDICAID, SELFPAY ==
[2022-05-15 00:10] VITALS: BP 144/91; PULSE 149; RESP 22; TEMP 37.2; O2SAT 100
--- NOTE | 2022-05-15 00:18 | ED.GENADULT ---
HPI - General Adult General Chief complaint: Arrhythmia/Palpitations Stated complaint: LUMPS ALL OVER ARMS AND VEINS Time Seen by Provider: 05/15/22 00:10 Source: patient Mode of arrival: Ambulatory History of Present Illness HPI narrative: 36-year-old female who is here for evaluation of lumps on her forearms and also 1 on the right side of her neck. She states that earlier today she started noticing bumps along the veins in her forearms. They have since improved. She also is complaining feel like her heart is racing. Has never had these bumps before. Has had infections in the past that she states it spread to her blood stream and she was concerned about that. Related Data Home Medications Medication Instructions Recorded Confirmed gabapentin 300 mg capsule 300 mg PO TID 01/28/19 09/04/19 hydroxyzine pamoate 25 mg capsule 25 mg PO BID 01/28/19 09/04/19 [id number]-[id number]-dyisrzfo 250 1 tab PO DIRECTED 02/25/19 09/04/19 mg-250 mg-65 mg tablet (Migraine Relief) buprenorphine 8 mg-naloxone 2 mg 2 film sublingual BID 02/25/19 09/04/19 sublingual film doxycycline monohydrate 100 mg 100 mg PO DAILY 02/25/19 09/04/19 capsule mirtazapine 30 mg tablet 30 mg PO DAILY 02/25/19 09/04/19 promethazine 12.5 mg tablet 12.5 mg PO BID 02/25/19 09/04/19 sumatriptan succinate 100 mg tablet 100 mg PO DIRECTED 02/25/19 09/04/19 Previous Rx's Medication Instructions Recorded cyclobenzaprine 10 mg tablet 20 mg PO BEDTIME muscle spasm #14 02/25/19 tabs lidocaine 5 % topical patch 2 patch topical DAILY #30 ea 02/25/19 (Lidoderm) meloxicam 15 mg tablet 15 mg PO DAILY back pain #14 tabs 02/25/19 metoclopramide HCl 10 mg tablet 10 mg PO Q6H PRN nausea and 01/27/20 vomiting #30 tabs furosemide 20 mg tablet (Lasix) 20 mg PO DAILY #7 tabs 01/13/21 cyclobenzaprine 10 mg tablet 10 mg PO TID PRN muscle spasm #14 05/14/21 tabs ketorolac 10 mg tablet 10 mg PO Q6H PRN pain #14 tabs 05/14/21 Allergies Allergy/AdvReac Type Severity Reaction Status Date / Time codeine Allergy Verified 04/01/20 14:32 ondansetron [From Zofran] Allergy Verified 04/01/20 14:32 Sulfa (Sulfonamide Allergy Verified 04/01/20 14:32 Antibiotics) Review of Systems Cardiovascular Cardiovascular: Reports system reviewed and no additional complaints, except as documented Respiratory Respiratory: Reports system reviewed and no additional complaints, except as documented Musculoskeletal Musculoskeletal: Reports system reviewed and no additional complaints, except as documented Integumentary/Breasts Skin/Breast: Reports system reviewed and no additional complaints, except as documented Hematologic/Lymphatic On Anticoagulants: No Patient History Medical History Chronic back pain Migraines Surgical History No history of previous surgery Social History Smoking Status: Current every day smoker Smoking Status: Current every day smoker tobacco type: cigarettes alcohol intake frequency: 0-2 drinks per day Substance Use Type: marijuana Exam Initial Vital Signs Initial Vital Signs: Vital Signs Temperature 98.9 F 05/15/22 00:10 Pulse Rate 149 H 05/15/22 00:10 Respiratory Rate 22 05/15/22 00:10 Blood Pressure 144/91 H 05/15/22 00:10 Pulse Oximetry 100 05/15/22 00:10 Oxygen Delivery Method 05/15/22 00:10 HENMT Head: normal to inspection Resp Effort & Inspection: normal respiratory effort Auscultation: clear to auscultation bilaterally Cardio Rate: tachycardic Rhythm: regular rhythm Skin General: no rashes or lesions noted Extrem General: normal to inspection and capillary refill normal Course Orders Ordered: ED Orders 05/15/22 00:25 Complete Blood Count AUTO DIFF Stat Comprehensive Metabolic Panel Stat Lipase Stat 05/15/22 00:26 EKG-12 Lead Stat Vital Signs Vital signs: Vital Signs - 8 hr 05/15/22 00:10 Temperature 98.9 F Pulse Rate 149 H Respiratory Rate 22 Blood Pressure 144/91 H Pulse Oximetry 100 Oxygen Delivery Method Room Air Medical Decision Making Lab Data Lab results reviewed: Yes I reviewed the patient's lab results. Result diagrams: 05/15/22 00:25 05/15/22 00:25 Labs: Lab Results 05/15/22 05/15/22 Range/Units 00:25 00:25 WBC 9.0 (4.5-11.0) X10^3/uL RBC 3.77 L (4.0-5.2) X10^6/uL Hgb 11.3 L (12.0-16.0) g/dL Hct 33.4 L (36-46) % MCV 88.6 (80-100) fL MCH 30.0 (26-34) PG MCHC 33.9 (30-36) % RDW 12.4 (11.6-14.8) % Plt Count 265 (150-400) X10^3/uL Neut % (Auto) 46.5 L (50-75) % Lymph % (Auto) 40.8 H (25-40) % [place] % (Auto) 10.1 (3-14) % Eos % (Auto) 1.7 L (2-4) % Baso % (Auto) 0.9 (0-2) % Neut # (Auto) 4200 (1725-5216) /uL Lymph # (Auto) 3700 (0961-4022) /uL [place] # (Auto) 900 (0-900) /uL Eos # (Auto) 100 (0-450) /uL Baso # (Auto) 100 (0-100) /uL Sodium 139 (137-145) mmol/L Potassium 3.6 (3.4-5.1) mmol/L Chloride 102 (98-107) mmol/L Carbon Dioxide 28 (22-32) mmol/L BUN 9 (7-17) mg/dL Creatinine 0.54 (0.52-1.04) mg/dL Estimated GFR > 60 (>60) mL/min BUN/Creatinine Ratio 16.7 (6-22) Glucose 102 H (70-100) mg/dL Calcium 8.7 (8.4-10.2) mg/dL Total Bilirubin 0.1 L (0.2-1.3) mg/dL AST 24 (14-36) IU/L ALT 22 (<35) IU/L Alkaline Phosphatase 52 (38-126) U/L Total Protein 7.6 (6.3-8.2) g/dL Albumin 4.4 (3.5-5.0) g/dL Globulin 3.2 (1.7-4.1) g/dL Albumin/Globulin Ratio 1.4 (1.0-2.8) Lipase 102 (23-300) U/L ECG Data Attestation: I personally reviewed and interpreted this ECG as follows: Interpretation: Sinus tachycardia Ventricular rate 114 Normal axis Normal QRS Normal QTC No ST T wave changes MDM Narrative Medical decision making narrative: Patient has 1 very small lump along the anterior cervical chain on the right that is most likely a lymph node. There are no lumps noted on her forearms. There is no urticaria. There is no signs of infection. No signs abscesses. No signs of cysts. Reassured patient that there does not appear to be anything emergent present. Initially she arrived with a heart rate in the 140s. EKG shows 114. She does have factor 5 Le[place]. Her labs are unremarkable. Low suspicion for pulmonary embolism she has no chest pain and no shortness of breath. Hold on further workup for now. Provided reassurance to the patient. Will discharge home with follow-up with primary provider and also Hematology Discharge Plan Departure Patient Disposition: Home Clinical Impression: Sinus tachycardia Instructions: DI for Tachycardia Activity Restrictions/Additional Instructions: Continue to take all of your medications as directed. Keep all of your scheduled medical appointments return to the emergency department for any new or worsening symptoms. Prescriptions: No Action gabapentin 300 mg capsule 300 mg PO TID hydroxyzine pamoate 25 mg capsule 25 mg PO BID sumatriptan succinate 100 mg tablet 100 mg PO DIRECTED promethazine 12.5 mg tablet 12.5 mg PO BID doxycycline monohydrate 100 mg capsule 100 mg PO DAILY mirtazapine 30 mg tablet 30 mg PO DAILY Migraine Relief 250-250-65 mg tablet 1 tab PO DIRECTED buprenorphine-naloxone 8-2 mg film 2 film sublingual BID Label Comments: DISSOLVE TWO FILMS UNDER THE TONGUE TWICE DAILY WITHOUT CHEWING OR SWALLOWING cyclobenzaprine 10 mg tablet 20 mg PO BEDTIME Qty: 14 0RF Rx Instructions: 1 tab q8h day, 1-2 at hs prn spasm. Do not drive meloxicam 15 mg tablet 15 mg PO DAILY Qty: 14 0RF Rx Instructions: not with other NSAIDS lidocaine [Lidoderm] 5 % adhesive patch,medicated 2 patch TOP DAILY Qty: 30 0RF Rx Instructions: leave on most painful area for 12 hrs daily metoclopramide HCl 10 mg tablet 10 mg PO Q6H PRN (Reason: nausea and vomiting) Qty: 30 0RF furosemide [Lasix] 20 mg tablet 20 mg PO DAILY Qty: 7 0RF cyclobenzaprine 10 mg tablet 10 mg PO TID PRN (Reason: muscle spasm) Qty: 14 0RF ketorolac 10 mg tablet 10 mg PO Q6H PRN (Reason: pain) Qty: 14 0RF Referrals: Mary Strickland ARNP [Primary Care Provider] - Visit Report Forms: Patient Portal/API
[2022-05-15 00:34] LABS: Add Manual Diff / Slide Review NO; Basophils Absolute Auto 100 /uL (0-100); Basophils Percent Auto 0.9 % (0-2); Eosinophils Absolute Auto 100 /uL (0-450); Eosinophils Percent Auto 1.7 % (2-4); Hematocrit 33.4 % (36-46); Hemoglobin 11.3 g/dL (12.0-16.0); Lymphocytes Absolute Auto 3700 /uL (1100-4500); Lymphocytes Percent Auto 40.8 % (25-40); Mean Corpuscular HGB Conc 33.9 % (30-36); Mean Corpuscular Volume 88.6 fL (80-100); Monocytes Absolute Auto 900 /uL (0-900); Monocytes Percent Auto 10.1 % (3-14); Neutrophils Absolute Auto 4200 /uL (1500-7000); Neutrophils Percent Auto 46.5 % (50-75); Platelet Count 265 X10^3/uL (150-400); Red Blood Cell Count 3.77 X10^6/uL (4.0-5.2); Red Cell Distribution Width 12.4 % (11.6-14.8)
[2022-05-15 00:43] LABS: Alanine Aminotransferase 22 IU/L (<35); Albumin 4.4 g/dL (3.5-5.0); Albumin Globulin Ratio 1.4 (1.0-2.8); Alkaline Phosphatase 52 U/L (38-126); Aspartate Aminotransferase 24 IU/L (14-36); BUN Creatinine Ratio 16.7 (6-22); Bilirubin Total 0.1 mg/dL (0.2-1.3); Blood Urea Nitrogen 9 mg/dL (7-17); Calcium 8.7 mg/dL (8.4-10.2); Carbon Dioxide 28 mmol/L (22-32); Chloride 102 mmol/L (98-107); Estimated Glomerular Filt Rate > 60 mL/min (>60); Globulin 3.2 g/dL (1.7-4.1); Glucose 102 mg/dL (70-100); HEMOLYSIS < 15 (0-50); Lipase 102 U/L (23-300); Potassium 3.6 mmol/L (3.4-5.1); Sodium 139 mmol/L (137-145); Total Protein 7.6 g/dL (6.3-8.2)
== END 2022-05-15 01:01 | disposition home or self-care (01) ==
PROVIDERS: Emergency Provider Emergency Medicine; PCP Nurse Practitioner Gerontology
DX: R00.0 Tachycardia, unspecified (principal); R22.1 Localized swelling, mass and lump, neck
CPT/HCPCS: 36415; 80053; 83690; 85025; 93005; 93010; 99283; 99284

== ENCOUNTER 2022-08-12 23:33 | Emergency (ER) | payer OTHER, MEDICAID, SELFPAY ==
--- NOTE | 2022-08-12 23:36 | DI.RAD.S_ITS ---
PROCEDURE: XR CHEST 1V INDICATIONS: Chest pain TECHNIQUE: One view of the chest was acquired. COMPARISON: [facility], CR, XR CHEST 2V, 03/07/2022, 16:53. FINDINGS: Surgical changes and devices: None. Lungs and pleura: Lungs are clear. No pleural effusions or pneumothorax. Mediastinum: Mediastinal contours appear normal. Heart size is normal. Bones and chest wall: No suspicious bony lesions. Overlying soft tissues appear unremarkable. IMPRESSION: No acute cardiopulmonary disease. Dictated by: Belinda Reese M.D. on 08/13/2022 at 0:06 Approved by: Belinda Reese M.D. on 08/13/2022 at 0:06
[2022-08-12 23:41] VITALS: PULSE 139; RESP 22; O2SAT 98
[2022-08-12 23:42] VITALS: BP 158/102; PULSE 141; RESP 25; O2SAT 98
[2022-08-12 23:45] VITALS: BP 158/102; PULSE 141; RESP 22; TEMP 36.3; O2SAT 97; BMI 22.1
[2022-08-12 23:48] VITALS: TEMP 37.2
--- NOTE | 2022-08-12 23:59 | ED_ITS ---
HPI - Chest Pain General Chief Complaint: Chest Pain Stated Complaint: chest pain Time Seen by Provider: 08/12/22 23:35 Source: patient Mode of arrival: Ambulatory Limitations: no limitations History of Present Illness HPI narrative: Patient is a 37-year-old female who is here for evaluation of chest pain. She stated that she took 2 hits on a marijuana vape just prior to the onset of the symptoms. She is feel like her heart is beating fast. This happens to her occasionally. The last several times she is been in the emergency department her heart rate has been in the 130s to 150s. She is not seen her primary doctor for this. She states that after the discomfort started she started to have some discomfort down her left arm. She is having some shortness of breath but this is not new for no cough no nausea vomiting. Has not tried anything for the symptoms prior to arrival. Related Data Home Medications Medication Instructions Recorded Confirmed gabapentin 300 mg capsule 300 mg PO TID 01/28/19 09/04/19 hydroxyzine pamoate 25 mg capsule 25 mg PO BID 01/28/19 09/04/19 [id number]-[id number] 250 1 tab PO DIRECTED 02/25/19 09/04/19 mg-250 mg-65 mg tablet (Migraine Relief) buprenorphine 8 mg-naloxone 2 mg 2 film sublingual BID 02/25/19 09/04/19 sublingual film doxycycline monohydrate 100 mg 100 mg PO DAILY 02/25/19 09/04/19 capsule mirtazapine 30 mg tablet 30 mg PO DAILY 02/25/19 09/04/19 promethazine 12.5 mg tablet 12.5 mg PO BID 02/25/19 09/04/19 sumatriptan succinate 100 mg tablet 100 mg PO DIRECTED 02/25/19 09/04/19 Previous Rx's Medication Instructions Recorded cyclobenzaprine 10 mg tablet 20 mg PO BEDTIME muscle spasm #14 02/25/19 tabs lidocaine 5 % topical patch 2 patch topical DAILY #30 ea 02/25/19 (Lidoderm) meloxicam 15 mg tablet 15 mg PO DAILY back pain #14 tabs 02/25/19 metoclopramide HCl 10 mg tablet 10 mg PO Q6H PRN nausea and 01/27/20 vomiting #30 tabs furosemide 20 mg tablet (Lasix) 20 mg PO DAILY #7 tabs 01/13/21 cyclobenzaprine 10 mg tablet 10 mg PO TID PRN muscle spasm #14 05/14/21 tabs ketorolac 10 mg tablet 10 mg PO Q6H PRN pain #14 tabs 05/14/21 Allergies Allergy/AdvReac Type Severity Reaction Status Date / Time codeine Allergy Verified 08/12/22 23:45 ondansetron [From Zofran] Allergy Verified 08/12/22 23:45 Sulfa (Sulfonamide Allergy Verified 08/12/22 23:45 Antibiotics) Review of Systems Cardiovascular Cardiovascular: Reports system reviewed and no additional complaints, except as documented Respiratory Respiratory: Reports system reviewed and no additional complaints, except as documented Hematologic/Lymphatic On Anticoagulants: No Patient History Medical History Chronic back pain Migraines Surgical History No history of previous surgery Social History Smoking Status: Current every day smoker Smoking Status: Current every day smoker tobacco type: cigarettes alcohol intake frequency: 0-2 drinks per day Substance Use Type: marijuana and opiates Exam Initial Vital Signs Initial Vital Signs: Vital Signs Pulse Rate 139 H 08/12/22 23:41 Respiratory Rate 22 08/12/22 23:41 Pulse Oximetry 98 08/12/22 23:41 Const General: cooperative and comfortable HENMT Head: normal to inspection and normocephalic Resp Effort & Inspection: normal respiratory effort Auscultation: clear to auscultation bilaterally Cardio Rate: tachycardic Rhythm: regular rhythm Skin General: no rashes or lesions noted Neuro General: patient alert, patient awake and moves all extremities Extrem General: No edema Scores HEART Score Heart Score history: Slightly Suspicious Heart Score EKG: Non-Specific repolarization disturbance Heart Score Age: < 45 years old Heart Score risk factors: No known risk factors Heart Score troponin: < or = to normal limit Heart Score Total: 1 Course Orders Ordered: ED Orders 08/12/22 23:36 XR chest 1V Stat EKG-12 Lead Stat 08/12/22 23:50 Complete Blood Count AUTO DIFF Stat Comprehensive Metabolic Panel Stat Lipase Stat Test Serum,Qual Stat Thyroid Stimulating Hormone Stat Troponin & CK Cardiac Panel Stat Vital Signs Vital signs: Vital Signs - 8 hr 08/12/22 23:45 08/12/22 23:48 08/12/22 23:41 Temperature 97.3 F L 98.9 F Pulse Rate 141 H 139 H Respiratory Rate 22 22 Blood Pressure 158/102 H Pulse Oximetry 97 98 Oxygen Delivery Method Room Air 08/12/22 23:42 08/12/22 23:42 08/13/22 00:00 Temperature Pulse Rate 141 H 122 H Respiratory Rate 25 H Blood Pressure 158/102 H Pulse Oximetry 98 96 Oxygen Delivery Method 08/13/22 00:30 08/13/22 00:40 08/13/22 00:40 Temperature Pulse Rate 119 H 124 H Respiratory Rate 22 21 Blood Pressure 142/73 H Pulse Oximetry 96 Oxygen Delivery Method 08/13/22 01:21 08/13/22 01:00 Temperature Pulse Rate 109 H 116 H Respiratory Rate 18 Blood Pressure 132/78 Pulse Oximetry Oxygen Delivery Method MDM - Chest Pain Medical Records Data Attestation: I reviewed the patient's medical records. Lab Data Attestation: I reviewed the patient's lab results. 08/12/22 23:50 08/12/22 23:50 Labs: Lab Results 08/12/22 08/12/22 08/12/22 Range/Units 23:50 23:50 23:50 WBC 7.4 (4.5-11.0) X10^3/uL RBC 3.68 L (4.0-5.2) X10^6/uL Hgb 11.2 L (12.0-16.0) g/dL Hct 32.3 L (36-46) % MCV 87.9 (80-100) fL MCH 30.5 (26-34) PG MCHC 34.7 (30-36) % RDW 12.3 (11.6-14.8) % Plt Count 239 (150-400) X10^3/uL Neut % (Auto) 48.9 L (50-75) % Lymph % (Auto) 38.5 (25-40) % Collier % (Auto) 7.3 (3-14) % Eos % (Auto) 3.0 (2-4) % Baso % (Auto) 2.3 H (0-2) % Neut # (Auto) 3600 (4643-1048) /uL Lymph # (Auto) 2900 (3252-0303) /uL Collier # (Auto) 500 (0-900) /uL Eos # (Auto) 200 (0-450) /uL Baso # (Auto) 200 H (0-100) /uL Sodium 142 (137-145) mmol/L Potassium 3.4 (3.4-5.1) mmol/L Chloride 106 (98-107) mmol/L Carbon Dioxide 28 (22-32) mmol/L BUN 12 (7-17) mg/dL Creatinine 0.56 (0.52-1.04) mg/dL Estimated GFR > 60 (>60) mL/min BUN/Creatinine Ratio 21.4 (6-22) Glucose 97 (70-100) mg/dL Calcium 8.8 (8.4-10.2) mg/dL Total Bilirubin 0.3 (0.2-1.3) mg/dL AST 22 (14-36) IU/L ALT 19 (<35) IU/L Alkaline Phosphatase 64 (38-126) U/L Total Creatine Kinase 71 (30-135) U/L CK-MB (CK-2) TNP CK-MB (CK-2) Rel Index TNP Troponin I < 0.012 (0.01-0.034) ng/mL Total Protein 7.1 (6.3-8.2) g/dL Albumin 4.1 (3.5-5.0) g/dL Globulin 3.0 (1.7-4.1) g/dL Albumin/Globulin Ratio 1.4 (1.0-2.8) Lipase 68 (23-300) U/L TSH (0.47-4.68) uIU/mL Serum , Qual (Negative) 08/12/22 08/12/22 Range/Units 23:50 23:50 WBC (4.5-11.0) X10^3/uL RBC (4.0-5.2) X10^6/uL Hgb (12.0-16.0) g/dL Hct (36-46) % MCV (80-100) fL MCH (26-34) PG MCHC (30-36) % RDW (11.6-14.8) % Plt Count (150-400) X10^3/uL Neut % (Auto) (50-75) % Lymph % (Auto) (25-40) % Collier % (Auto) (3-14) % Eos % (Auto) (2-4) % Baso % (Auto) (0-2) % Neut # (Auto) (6104-5263) /uL Lymph # (Auto) (8848-7143) /uL Collier # (Auto) (0-900) /uL Eos # (Auto) (0-450) /uL Baso # (Auto) (0-100) /uL Sodium (137-145) mmol/L Potassium (3.4-5.1) mmol/L Chloride (98-107) mmol/L Carbon Dioxide (22-32) mmol/L BUN (7-17) mg/dL Creatinine (0.52-1.04) mg/dL Estimated GFR (>60) mL/min BUN/Creatinine Ratio (6-22) Glucose (70-100) mg/dL Calcium (8.4-10.2) mg/dL Total Bilirubin (0.2-1.3) mg/dL AST (14-36) IU/L ALT (<35) IU/L Alkaline Phosphatase (38-126) U/L Total Creatine Kinase (30-135) U/L CK-MB (CK-2) CK-MB (CK-2) Rel Index Troponin I (0.01-0.034) ng/mL Total Protein (6.3-8.2) g/dL Albumin (3.5-5.0) g/dL Globulin (1.7-4.1) g/dL Albumin/Globulin Ratio (1.0-2.8) Lipase (23-300) U/L TSH 1.07 (0.47-4.68) uIU/mL Serum , Qual Negative (Negative) Point of Care Testing Test Results Negative Urine Dip Bedside Urine Glucose Negative Bedside Urine Bilirubin - Negative Bedside Urine Ketone - Negative Urine Specific [place] 1.015 Bedside Urine Occult Blood - Negative Bedside Urine pH 7.5 Bedside Urine Protein - Negative Bedside Urine Urobilinogen - Negative Bedside Urine Nitrite - Negative Bedside Urine Leukocytes - Negative Esterase Imaging Data Chest x-ray: Radiologist's Impression: [address] [address] XRay Report Signed Patient: Helio Carrillo MR#: [id number] : 1985 Acct:[id number] Age/Sex: 37 / F Date of Service: 08/12/22 Loc: ED Accession Number: [id number] ?? Procedure: XR chest 1V Ordering Provider: Dario Diggs D.O. PROCEDURE:? XR CHEST 1V ? INDICATIONS:? Chest pain ? TECHNIQUE:? One view of the chest was acquired.? ? COMPARISON:? [facility], CR, XR CHEST 2V, 03/07/2022, 16:53. ? FINDINGS:? ? Surgical changes and devices:? None.? ? Lungs and pleura:? Lungs are clear.? No pleural effusions or pneumothorax.? ? Mediastinum:? Mediastinal contours appear normal.? Heart size is normal.? ? Bones and chest wall:? No suspicious bony lesions.? Overlying soft tissues appear unremarkable.? ? IMPRESSION:? No acute cardiopulmonary disease.? ? ? Dictated by: Belinda Reese M.D. on 08/13/2022 at 0:06 ? ? Approved by: Belinda Reese M.D. on 08/13/2022 at 0:0 ECG Data Attestation: I personally reviewed and interpreted this ECG as follows: Interpretation: Sinus tachycardia Ventricular rate 151 Normal axis Normal QRS Normal QTC Nonspecific ST T wave changes MDM Narrative Medical decision making narrative: Patient is a low risk heart score. She is sinus tach on her EKG but looking back through her medical records she is been tachycardic the last several time she is been here in the ER. This does not appear to be a new thing for her. States she does feel it occasionally. She has not talked with her primary doctor regarding it. I did inform her that she should talk with her primary doctor she most likely has continued a Holter monitor and potentially a beta- brisa to try to help with the symptoms. Her chest discomfort today started after she took a couple hits of marijuana. Her chest x-ray is unremarkable. No signs of pneumonia. Low suspicion for ACS. Low suspicion for PE given her presentation. She is having short of breath but this is not new for her. Will discharge patient home without further workup. Will have her contact her primary provider for follow-up. She was given return precautions. She expressed understanding and agreement. Discharge Plan Departure Patient Disposition: Home Clinical Impression: Atypical chest pain, Sinus tachycardia Instructions: DI for Atypical Chest Pain Activity Restrictions/Additional Instructions: I do recommend that you contact your primary doctor to discuss the indications for Holter monitor to further evaluate your fast heart rate. Continue to take all of your medications as directed. Return to the emergency department for new symptoms. Prescriptions: No Action gabapentin 300 mg capsule 300 mg PO TID hydroxyzine pamoate 25 mg capsule 25 mg PO BID sumatriptan succinate 100 mg tablet 100 mg PO DIRECTED promethazine 12.5 mg tablet 12.5 mg PO BID doxycycline monohydrate 100 mg capsule 100 mg PO DAILY mirtazapine 30 mg tablet 30 mg PO DAILY Migraine Relief 250-250-65 mg tablet 1 tab PO DIRECTED buprenorphine-naloxone 8-2 mg film 2 film sublingual BID Label Comments: DISSOLVE TWO FILMS UNDER THE TONGUE TWICE DAILY WITHOUT CHEWING OR SWALLOWING cyclobenzaprine 10 mg tablet 20 mg PO BEDTIME Qty: 14 0RF Rx Instructions: 1 tab q8h day, 1-2 at hs prn spasm. Do not drive meloxicam 15 mg tablet 15 mg PO DAILY Qty: 14 0RF Rx Instructions: not with other NSAIDS lidocaine [Lidoderm] 5 % adhesive patch,medicated 2 patch TOP DAILY Qty: 30 0RF Rx Instructions: leave on most painful area for 12 hrs daily metoclopramide HCl 10 mg tablet 10 mg PO Q6H PRN (Reason: nausea and vomiting) Qty: 30 0RF furosemide [Lasix] 20 mg tablet 20 mg PO DAILY Qty: 7 0RF cyclobenzaprine 10 mg tablet 10 mg PO TID PRN (Reason: muscle spasm) Qty: 14 0RF ketorolac 10 mg tablet 10 mg PO Q6H PRN (Reason: pain) Qty: 14 0RF Referrals: Mary Strickland ARNP [Primary Care Provider] - Stand Alone Forms: Patient Portal/API
[2022-08-13] VITALS: PULSE 122; O2SAT 96
[2022-08-13 00:08] LABS: Add Manual Diff / Slide Review NO; Basophils Absolute Auto 200 /uL (0-100); Basophils Percent Auto 2.3 % (0-2); Eosinophils Absolute Auto 200 /uL (0-450); Hematocrit 32.3 % (36-46); Hemoglobin 11.2 g/dL (12.0-16.0); Lymphocytes Absolute Auto 2900 /uL (1100-4500); Lymphocytes Percent Auto 38.5 % (25-40); Mean Corpuscular HGB Conc 34.7 % (30-36); Mean Corpuscular Hemoglobin 30.5 PG (26-34); Mean Corpuscular Volume 87.9 fL (80-100); Monocytes Absolute Auto 500 /uL (0-900); Monocytes Percent Auto 7.3 % (3-14); Neutrophils Absolute Auto 3600 /uL (1500-7000); Neutrophils Percent Auto 48.9 % (50-75); Platelet Count 239 X10^3/uL (150-400); Red Blood Cell Count 3.68 X10^6/uL (4.0-5.2); Red Cell Distribution Width 12.3 % (11.6-14.8); White Blood Cell Count 7.4 X10^3/uL (4.5-11.0)
[2022-08-13 00:25] LABS: Alanine Aminotransferase 19 IU/L (<35); Albumin 4.1 g/dL (3.5-5.0); Albumin Globulin Ratio 1.4 (1.0-2.8); Alkaline Phosphatase 64 U/L (38-126); Aspartate Aminotransferase 22 IU/L (14-36); BUN Creatinine Ratio 21.4 (6-22); Bilirubin Total 0.3 mg/dL (0.2-1.3); Blood Urea Nitrogen 12 mg/dL (7-17); Calcium 8.8 mg/dL (8.4-10.2); Carbon Dioxide 28 mmol/L (22-32); Chloride 106 mmol/L (98-107); Estimated Glomerular Filt Rate > 60 mL/min (>60); Glucose 97 mg/dL (70-100); HEMOLYSIS < 15 (0-50); Potassium 3.4 mmol/L (3.4-5.1); Sodium 142 mmol/L (137-145); Total Protein 7.1 g/dL (6.3-8.2)
[2022-08-13 00:26] LABS: Creatine Kinase 71 U/L (30-135); Lipase 68 U/L (23-300)
[2022-08-13 00:30] VITALS: PULSE 119; RESP 22; O2SAT 96
[2022-08-13 00:36] LABS: Troponin I < 0.012 ng/mL (0.01-0.034)
[2022-08-13 00:37] LABS: Pregnancy Test Serum,Qual Negative (Negative)
[2022-08-13 00:40] VITALS: BP 142/73; PULSE 124; RESP 21
[2022-08-13 01:00] VITALS: BP 132/78; PULSE 116; RESP 18
[2022-08-13 01:10] LABS: Thyroid Stimulating Hormone 1.07 uIU/mL (0.47-4.68)
[2022-08-13 01:21] VITALS: PULSE 109
== END 2022-08-13 01:29 | disposition home or self-care (01) ==
PROVIDERS: Emergency Provider Emergency Medicine; PCP Nurse Practitioner Gerontology
DX: R07.89 Other chest pain (principal); R00.0 Tachycardia, unspecified; R06.02 Shortness of breath
CPT/HCPCS: 36415; 71045; 80053; 81003; 81025; 82550; 83690; 84443; 84484; 84703; 85025; 93005; 93010; 99283; 99284

== ENCOUNTER → 2022-09-17 15:44 | Outpatient (CLI) | payer OTHER, MEDICAID, SELFPAY | PROVIDERS: PCP Nurse Practitioner Gerontology; Visit Provider Physician Assistant | DX: J02.9 Acute pharyngitis, unspecified (principal); J35.8 Other chronic diseases of tonsils and adenoids | CPT/HCPCS: 87070; 87077; 87147; 87186; 87880 ==

== ENCOUNTER → 2023-01-21 18:28 | Outpatient (CLI) | payer OTHER, MEDICAID, SELFPAY | PROVIDERS: PCP Nurse Practitioner Gerontology; Visit Provider Nurse Practitioner Family | DX: J02.9 Acute pharyngitis, unspecified (principal) | CPT/HCPCS: 87070 ==

== ENCOUNTER 2023-03-21 19:22 | Emergency (ER) | payer OTHER, MEDICAID, SELFPAY ==
[2023-03-21 19:30] VITALS: BP 147/76; PULSE 120; RESP 16; TEMP 36.8; O2SAT 99; BMI 29.2
[2023-03-21 20:03] VITALS: BP 163/72; PULSE 128; RESP 18; O2SAT 97
[2023-03-21 21:10] VITALS: BP 136/57; PULSE 109; RESP 18; O2SAT 98
[2023-03-21 22:45] VITALS: BP 133/81; PULSE 99; RESP 18; O2SAT 92
--- NOTE | 2023-03-21 23:06 | ED.DENTAL ---
HPI - Dental/Oral General Chief complaint: Dental/Oral Stated complaint: rt sided facial swelling Time Seen by Provider: 03/21/23 22:48 Source: patient Mode of arrival: Ambulatory History of Present Illness HPI Narrative: Patient 37-year-old female presents today with right-sided lower facial swelling. She reports that she is had some chronic issues and dental issues however this morning she woke up and it was swollen no fever or chills. Still able to eat and drink. Actively chasing a small child around the room. Related Data Home Medications Medication Instructions Recorded Confirmed gabapentin 300 mg capsule 300 mg PO TID 01/28/19 01/21/23 hydroxyzine pamoate 25 mg capsule 25 mg PO BID 01/28/19 01/21/23 euwrqow-stzkwhzjtyxjq-iagsqgkf 250 1 tab PO DIRECTED 02/25/19 01/21/23 mg-250 mg-65 mg tablet (Migraine Relief) buprenorphine 8 mg-naloxone 2 mg 2 film sublingual BID 02/25/19 01/21/23 sublingual film doxycycline monohydrate 100 mg 100 mg PO DAILY 02/25/19 01/21/23 capsule mirtazapine 30 mg tablet 30 mg PO DAILY 02/25/19 01/21/23 promethazine 12.5 mg tablet 12.5 mg PO BID 02/25/19 01/21/23 sumatriptan succinate 100 mg tablet 100 mg PO DIRECTED 02/25/19 01/21/23 Previous Rx's Medication Instructions Recorded cyclobenzaprine 10 mg tablet 20 mg PO BEDTIME muscle spasm #14 02/25/19 tabs lidocaine 5 % topical patch 2 patch topical DAILY #30 ea 02/25/19 (Lidoderm) meloxicam 15 mg tablet 15 mg PO DAILY back pain #14 tabs 02/25/19 metoclopramide HCl 10 mg tablet 10 mg PO Q6H PRN nausea and 01/27/20 vomiting #30 tabs furosemide 20 mg tablet (Lasix) 20 mg PO DAILY #7 tabs 01/13/21 cyclobenzaprine 10 mg tablet 10 mg PO TID PRN muscle spasm #14 05/14/21 tabs ketorolac 10 mg tablet 10 mg PO Q6H PRN pain #14 tabs 05/14/21 amoxicillin 500 mg capsule 500 mg PO BID #14 caps 03/21/23 Allergies Allergy/AdvReac Type Severity Reaction Status Date / Time codeine Allergy Verified 01/21/23 18:16 ondansetron [From Zofran] Allergy Verified 01/21/23 18:16 Sulfa (Sulfonamide Allergy Verified 01/21/23 18:16 Antibiotics) Review of Systems Review of Systems ROS Unobtainable: All systems reviewed & are unremarkable except as noted in HPI and below Patient History Medical History (Updated 03/21/23 @ 23:09 by Connie Henry DO) Chronic back pain Migraines Surgical History No history of previous surgery Social History Smoking Status: Current every day smoker Smoking Status: Current every day smoker tobacco type: vaping alcohol intake frequency: 0-2 drinks per day Substance Use Type: marijuana Exam Initial Vital Signs Initial Vital Signs: Vital Signs Temperature 98.3 F 03/21/23 19:30 Pulse Rate 120 H 03/21/23 19:30 Respiratory Rate 16 03/21/23 19:30 Blood Pressure 147/76 H 03/21/23 19:30 Pulse Oximetry 99 03/21/23 19:30 Oxygen Delivery Method Room Air 03/21/23 19:30 GENERAL: Well-appearing, well-nourished and in no acute distress. DENTAL: No obvious dental abscess she does have swelling right lower jaw. No trismus CARDIOVASCULAR: peripheral pulses in tact, cap refill <2 sec RESPIRATORY: No respiratory distress, speaks in full sentences without difficulty EXTREMITIES: Normal range of motion, no clubbing or edema. Neurovascularly intact NEUROLOGICAL: Cranial nerves II through XII grossly intact. Normal gait and speech. SKIN: Warm, dry, no petechiae, no rashes or lesions. Course Orders Ordered: Discontinued Medications Amoxicillin (Amoxicillin 250 Mg Prepack) 1 bottle MISC SEEINSTR ONE Stop: 03/21/23 23:07 Last Admin: 03/21/23 23:16 Dose: 1 bottle Documented By: BARRY Vital Signs Vital signs: Vital Signs - 8 hr 03/21/23 21:10 03/21/23 22:45 Pulse Rate 109 H 99 H Respiratory Rate 18 18 Blood Pressure 136/57 L 133/81 Pulse Oximetry 98 92 Oxygen Delivery Method Room Air Room Air MDM - Dental/Oral MDM Narrative Medical decision making narrative: Patient 37-year-old female presenting today with dental pain obvious facial swelling but no obvious abscess. Started on amoxicillin here in the ED otherwise supportive care. Discharge Plan Departure Patient Disposition: Home Clinical Impression: Pain, dental Instructions: DI for Dental Pain Activity Restrictions/Additional Instructions: *You have been diagnosed with dental pain *What to do: *Continue to take medications as directed Amoxicillin 500 mg twice a day for 7 days--> [facility] Tylenol Motrin as needed for pain *Follow up with your primary care provider in 2-3 days or call [phone] *Return to ER if you should have increasing pain swelling redness or any new, worsening or concerning symptoms Prescriptions: New amoxicillin 500 mg capsule 500 mg PO BID Qty: 14 0RF No Action gabapentin 300 mg capsule 300 mg PO TID hydroxyzine pamoate 25 mg capsule 25 mg PO BID sumatriptan succinate 100 mg tablet 100 mg PO DIRECTED promethazine 12.5 mg tablet 12.5 mg PO BID doxycycline monohydrate 100 mg capsule 100 mg PO DAILY mirtazapine 30 mg tablet 30 mg PO DAILY Migraine Relief 250-250-65 mg tablet 1 tab PO DIRECTED buprenorphine-naloxone 8-2 mg film 2 film sublingual BID Patient Comments: DISSOLVE TWO FILMS UNDER THE TONGUE TWICE DAILY WITHOUT CHEWING OR SWALLOWING cyclobenzaprine 10 mg tablet 20 mg PO BEDTIME Qty: 14 0RF Rx Instructions: 1 tab q8h day, 1-2 at hs prn spasm. Do not drive meloxicam 15 mg tablet 15 mg PO DAILY Qty: 14 0RF Rx Instructions: not with other NSAIDS lidocaine [Lidoderm] 5 % adhesive patch,medicated 2 patch TOP DAILY Qty: 30 0RF Rx Instructions: leave on most painful area for 12 hrs daily metoclopramide HCl 10 mg tablet 10 mg PO Q6H PRN (Reason: nausea and vomiting) Qty: 30 0RF furosemide [Lasix] 20 mg tablet 20 mg PO DAILY Qty: 7 0RF cyclobenzaprine 10 mg tablet 10 mg PO TID PRN (Reason: muscle spasm) Qty: 14 0RF ketorolac 10 mg tablet 10 mg PO Q6H PRN (Reason: pain) Qty: 14 0RF Referrals: Mary Strickland ARNP [Primary Care Provider] - Stand Alone Forms: Patient Portal/API
[2023-03-21] MEDS: AMOXICILLIN 250 MG PREPACK 1 BOTTLE MISC (23:16)
== END 2023-03-21 23:17 | disposition home or self-care (01) ==
PROVIDERS: Emergency Provider Emergency Medicine; PCP Nurse Practitioner Gerontology
DX: K08.89 Other specified disorders of teeth and supporting structures (principal)
CPT/HCPCS: 99281; 99282

== ENCOUNTER 2023-03-24 19:51 | Emergency (ER) | payer OTHER, MEDICAID, SELFPAY ==
[2023-03-24 20:15] VITALS: BP 142/92; PULSE 114; RESP 22; TEMP 36.5; O2SAT 98; BMI 30.2
--- NOTE | 2023-03-24 20:57 | ED.DENTAL ---
HPI - Dental/Oral General Chief complaint: Dental/Oral Stated complaint: Mouth infection, Took meds wrong, Nausea Time Seen by Provider: 03/24/23 20:57 Source: patient Mode of arrival: Ambulatory Limitations: no limitations History of Present Illness HPI Narrative: This is a 37-year-old female who presents for concerns for dental infection. Patient was seen here on 03/21/2023, received amoxicillin prepack which was 250 mg and she states she misunderstood and was only taking 1 tablet rather than 2 tablets 500 mg. She has not filled her pharmacy prescription yet as there was some delay at the pharmacy. She had her last dose this morning. She states yesterday she was very swollen after being seen in the emergency department it is actually improved. She states her pain had increased yesterday but has now started to improve. She does have a little bit of foul taste in her mouth she is unsure if she is had any drainage. She states the pain is still present but has improved. She is felt warm with subjective fever. She is had some mild nausea but no vomiting. No swelling of her tongue, airway. She is had a little bit of ear pain which he states was present before as well. She has not had any changes to voice or speech. She has not had any other chest pain, shortness of breath GI or urinary symptoms. Patient states she is allergic to Zofran, sulfa and codeine. Related Data Home Medications Medication Instructions Recorded Confirmed gabapentin 300 mg capsule 300 mg PO TID 01/28/19 01/21/23 hydroxyzine pamoate 25 mg capsule 25 mg PO BID 01/28/19 01/21/23 [id number] 250 1 tab PO DIRECTED 02/25/19 01/21/23 mg-250 mg-65 mg tablet (Migraine Relief) buprenorphine 8 mg-naloxone 2 mg 2 film sublingual BID 02/25/19 01/21/23 sublingual film doxycycline monohydrate 100 mg 100 mg PO DAILY 02/25/19 01/21/23 capsule mirtazapine 30 mg tablet 30 mg PO DAILY 02/25/19 01/21/23 promethazine 12.5 mg tablet 12.5 mg PO BID 02/25/19 01/21/23 sumatriptan succinate 100 mg tablet 100 mg PO DIRECTED 02/25/19 01/21/23 Previous Rx's Medication Instructions Recorded cyclobenzaprine 10 mg tablet 20 mg PO BEDTIME muscle spasm #14 02/25/19 tabs lidocaine 5 % topical patch 2 patch topical DAILY #30 ea 02/25/19 (Lidoderm) meloxicam 15 mg tablet 15 mg PO DAILY back pain #14 tabs 02/25/19 metoclopramide HCl 10 mg tablet 10 mg PO Q6H PRN nausea and 01/27/20 vomiting #30 tabs furosemide 20 mg tablet (Lasix) 20 mg PO DAILY #7 tabs 01/13/21 cyclobenzaprine 10 mg tablet 10 mg PO TID PRN muscle spasm #14 05/14/21 tabs ketorolac 10 mg tablet 10 mg PO Q6H PRN pain #14 tabs 05/14/21 amoxicillin 500 mg capsule 500 mg PO BID #14 caps 03/21/23 Allergies Allergy/AdvReac Type Severity Reaction Status Date / Time codeine Allergy Verified 01/21/23 18:16 ondansetron [From Zofran] Allergy Verified 01/21/23 18:16 Sulfa (Sulfonamide Allergy Verified 01/21/23 18:16 Antibiotics) Review of Systems Review of Systems ROS Unobtainable: All systems reviewed & are unremarkable except as noted in HPI and below Patient History Medical History Chronic back pain Migraines Surgical History No history of previous surgery Social History Smoking Status: Current every day smoker Smoking Status: Current every day smoker tobacco type: vaping alcohol intake frequency: 0-2 drinks per day Substance Use Type: marijuana Exam Narrative Exam Narrative: GEN: well nourished, well appearing female, alert and oriented x 3, patient appears to be in no acute distress. Patient has a very active child which she was chasing around the room. HEENT: Atraumatic, pupils are equal round reactive to light, extraocular movements are intact, nares are clear, TMs are clear with no fluid, there is no conjunctival pallor. Throat is clear without any exudates, erythema, tonsillar enlargement or uvular deviation, swelling or erythema of the cheek, neck, patient does have a little bit of erythema along the gingiva of tooth 18/19/20. No active drainage or fluctuance appreciated. Patient has full range of motion, no trismus, normal speech, no hoarseness. HEART: Regular rate and rhythm without murmur, clicks, rubs. LUNGS:Lungs clear to auscultation, no wheezes, rales, crackles, chest moves symmetrically ABD:bowel sounds normal, soft, non-tender, no guarding, rebound, rigidity, no masses noted, no hepatosplenomegaly MSCL: Non-tender, no muscle atrophy, full range of motion. NEURO:CN 2-12 intact, sensation normal SKIN: No rash, erythema petechiae or other changes. Initial Vital Signs Initial Vital Signs: Vital Signs Temperature 97.7 F 03/24/23 20:15 Pulse Rate 114 H 03/24/23 20:15 Respiratory Rate 22 03/24/23 20:15 Blood Pressure 142/92 H 03/24/23 20:15 Pulse Oximetry 98 03/24/23 20:15 Oxygen Delivery Method Room Air 03/24/23 20:15 Course Orders Ordered: Discontinued Medications Amoxicillin (Amoxicillin 250 Mg Prepack) 1 bottle MISC SEEINSTR ONE Stop: 03/24/23 21:08 Vital Signs Vital signs: Vital Signs - 8 hr 03/24/23 20:15 03/24/23 21:15 Temperature 97.7 F 98.0 F Pulse Rate 114 H 110 H Respiratory Rate 22 20 Blood Pressure 142/92 H 140/88 Pulse Oximetry 98 98 Oxygen Delivery Method Room Air Room Air MDM - Dental/Oral MDM Narrative Medical decision making narrative: 37-year-old female who presents with concern that her dental infection may not be improving although her swelling has significantly improved since she was seen. Her redness has also resolved. Her pain has improved. She is having a little bit of redness at the gingiva, she was missed dosing her antibiotic because the prepack dosage was 250 mg and she was taking 1 set of 2 tablets. She is since run out and is supposed to receive her prescription sent to the pharmacy tomorrow during the daytime. Given additional prepack patient understands she is to take 2 tablets of 250 mg until she receives her electronic prescription which will then be 1 tablet at 500 mg. She is been taking ibuprofen with an antihistamine in it and she states this is improving pain as well as any nausea. Reviewed red flag findings and reasons for return. Discharge Plan Departure Patient Disposition: Home Clinical Impression: Dental infection Instructions: Tooth Abscess Activity Restrictions/Additional Instructions: Follow up for recheck if you are not continuing to improve. I hope you continue to feel better. Make sure you take 500 mg (two tablets from the prepack) of the amoxicillin instead of 250mg (1 tablet), once your prescription is filled at the pharmacy it will be 500 mg tablets and you only have to take 1 these at a time. You may take ibuprofen up to 600 mg every 6 hours and/or Tylenol up to 1000 mg every 6 hours needed for pain. Please return for fevers, new swelling increasing redness, rapidly worsening pain, difficulty with swallowing, swelling of your tongue airway, difficulty with breathing or change in your voice, persistent vomiting, lightheadedness or passing out or other new or concerning changes. Prescriptions: No Action gabapentin 300 mg capsule 300 mg PO TID hydroxyzine pamoate 25 mg capsule 25 mg PO BID sumatriptan succinate 100 mg tablet 100 mg PO DIRECTED promethazine 12.5 mg tablet 12.5 mg PO BID doxycycline monohydrate 100 mg capsule 100 mg PO DAILY mirtazapine 30 mg tablet 30 mg PO DAILY Migraine Relief 250-250-65 mg tablet 1 tab PO DIRECTED buprenorphine-naloxone 8-2 mg film 2 film sublingual BID Patient Comments: DISSOLVE TWO FILMS UNDER THE TONGUE TWICE DAILY WITHOUT CHEWING OR SWALLOWING cyclobenzaprine 10 mg tablet 20 mg PO BEDTIME Qty: 14 0RF Rx Instructions: 1 tab q8h day, 1-2 at hs prn spasm. Do not drive meloxicam 15 mg tablet 15 mg PO DAILY Qty: 14 0RF Rx Instructions: not with other NSAIDS lidocaine [Lidoderm] 5 % adhesive patch,medicated 2 patch TOP DAILY Qty: 30 0RF Rx Instructions: leave on most painful area for 12 hrs daily metoclopramide HCl 10 mg tablet 10 mg PO Q6H PRN (Reason: nausea and vomiting) Qty: 30 0RF furosemide [Lasix] 20 mg tablet 20 mg PO DAILY Qty: 7 0RF amoxicillin 500 mg capsule 500 mg PO BID Qty: 14 0RF cyclobenzaprine 10 mg tablet 10 mg PO TID PRN (Reason: muscle spasm) Qty: 14 0RF ketorolac 10 mg tablet 10 mg PO Q6H PRN (Reason: pain) Qty: 14 0RF Referrals: Mary Strickland ARNP [Primary Care Provider] - Stand Alone Forms: Patient Portal/API
[2023-03-24 21:15] VITALS: BP 140/88; PULSE 110; RESP 20; TEMP 36.7; O2SAT 98
== END 2023-03-24 21:16 | disposition home or self-care (01) ==
PROVIDERS: Emergency Provider Emergency Medicine; PCP Nurse Practitioner Gerontology
DX: K04.7 Periapical abscess without sinus (principal)
CPT/HCPCS: 99281; 99283

== ENCOUNTER 2023-04-27 03:46 | Emergency (ER) | payer OTHER, MEDICAID, SELFPAY ==
--- NOTE | 2023-04-27 03:51 | DI.RAD.S_ITS ---
PROCEDURE: XR CHEST 1V INDICATIONS: Chest pain and shortness of breath TECHNIQUE: One view of the chest was acquired. COMPARISON: [facility], CR, XR CHEST 1V, 08/12/2022, 23:34. FINDINGS: Surgical changes and devices: Metallic densities overlie the tongue and lip. Lungs and pleura: Lungs are clear. No pleural effusions or pneumothorax. Mediastinum: Mediastinal contours appear normal. Heart size is normal. Bones and chest wall: No suspicious bony lesions. Overlying soft tissues appear unremarkable. IMPRESSION: Portable chest within normal limits for age. Dictated by: Reinier Liz M.D. on 04/27/2023 at 8:40 Approved by: Reinier Liz M.D. on 04/27/2023 at 8:41
[2023-04-27 03:54] VITALS: BP 120/91; PULSE 135; RESP 18; O2SAT 100; BMI 29.8
--- NOTE | 2023-04-27 03:57 | ED_ITS ---
HPI - General Adult General Chief complaint: Chest Pain Stated complaint: chest pain few hours/when falling asleep sob Time Seen by Provider: 04/27/23 03:49 Source: patient Mode of arrival: Ambulatory Limitations: no limitations History of Present Illness HPI narrative: Patient is a 37-year-old female. She is here for evaluation of several hours of chest discomfort, palpitations and shortness of breath. No fevers. She states this has happened occasionally to her since her child was born. She takes no medications for this. She states she was just about to go to sleep when the symptoms occurred. She states that nothing seems to make any of the symptoms better or worse. Related Data Home Medications Medication Instructions Recorded Confirmed gabapentin 300 mg capsule 300 mg PO TID 01/28/19 01/21/23 hydroxyzine pamoate 25 mg capsule 25 mg PO BID 01/28/19 01/21/23 [id number] 250 1 tab PO DIRECTED 02/25/19 01/21/23 mg-250 mg-65 mg tablet (Migraine Relief) buprenorphine 8 mg-naloxone 2 mg 2 film sublingual BID 02/25/19 01/21/23 sublingual film doxycycline monohydrate 100 mg 100 mg PO DAILY 02/25/19 01/21/23 capsule mirtazapine 30 mg tablet 30 mg PO DAILY 02/25/19 01/21/23 promethazine 12.5 mg tablet 12.5 mg PO BID 02/25/19 01/21/23 sumatriptan succinate 100 mg tablet 100 mg PO DIRECTED 02/25/19 01/21/23 Previous Rx's Medication Instructions Recorded cyclobenzaprine 10 mg tablet 20 mg (2 x 10 mg) PO BEDTIME 02/25/19 muscle spasm #14 tabs lidocaine 5 % topical patch 2 patch topical DAILY #30 ea 02/25/19 (Lidoderm) meloxicam 15 mg tablet 15 mg PO DAILY back pain #14 tabs 02/25/19 metoclopramide HCl 10 mg tablet 10 mg PO Q6H PRN nausea and 01/27/20 vomiting #30 tabs furosemide 20 mg tablet (Lasix) 20 mg PO DAILY #7 tabs 01/13/21 cyclobenzaprine 10 mg tablet 10 mg PO TID PRN muscle spasm #14 05/14/21 tabs ketorolac 10 mg tablet 10 mg PO Q6H PRN pain #14 tabs 05/14/21 amoxicillin 500 mg capsule 500 mg PO BID #14 caps 03/21/23 Allergies Allergy/AdvReac Type Severity Reaction Status Date / Time codeine Allergy Verified 01/21/23 18:16 ondansetron [From Zofran] Allergy Verified 01/21/23 18:16 Sulfa (Sulfonamide Allergy Verified 01/21/23 18:16 Antibiotics) Review of Systems Constitutional Constitutional: Reports system reviewed and no additional complaints, except as documented Cardiovascular Cardiovascular: Reports system reviewed and no additional complaints, except as documented Respiratory Respiratory: Reports system reviewed and no additional complaints, except as documented Gastrointestinal Gastrointestinal: Reports system reviewed and no additional complaints, except as documented Integumentary/Breasts Skin/Breast: Reports system reviewed and no additional complaints, except as documented Hematologic/Lymphatic On Anticoagulants: No Patient History Medical History Chronic back pain Migraines Surgical History No history of previous surgery Social History Smoking Status: Current every day smoker Smoking Status: Current every day smoker tobacco type: vaping alcohol intake frequency: 0-2 drinks per day Substance Use Type: marijuana Exam Initial Vital Signs Initial Vital Signs: Vital Signs Pulse Rate 135 H 04/27/23 03:54 Respiratory Rate 18 04/27/23 03:54 Blood Pressure 120/91 H 04/27/23 03:54 Pulse Oximetry 100 04/27/23 03:54 Oxygen Delivery Method Room Air 04/27/23 03:54 Const General: cooperative, comfortable and No ill appearing Resp Effort & Inspection: normal respiratory effort Auscultation: clear to auscultation bilaterally Cardio Rate: tachycardic Rhythm: regular rhythm GI Inspection: normal to inspection Skin General: no rashes or lesions noted Neuro General: patient alert, patient awake and patient oriented x3 Course Orders Ordered: ED Orders 04/27/23 03:51 XR chest 1V Stat EKG-12 Lead Stat 04/27/23 04:00 Complete Blood Count AUTO DIFF Stat D Dimer Stat Test Serum,Qual Stat 04/27/23 04:30 Comprehensive Metabolic Panel Stat Ethanol (ETOH) Stat Lipase Stat Discontinued Medications Propranolol HCl (Propranolol 10 Mg Tablet) 10 mg PO NOW ONE Stop: 04/27/23 04:22 Last Admin: 04/27/23 04:27 Dose: 10 mg Documented By: LJ Vital Signs Vital signs: Vital Signs - 8 hr 04/27/23 03:54 04/27/23 04:11 04/27/23 04:30 Pulse Rate 135 H 128 H 134 H Respiratory Rate 18 18 22 Blood Pressure 120/91 H Pulse Oximetry 100 Oxygen Delivery Method Room Air 04/27/23 05:00 04/27/23 05:05 04/27/23 05:05 Pulse Rate 109 H 117 H Respiratory Rate 22 23 Blood Pressure 131/86 Pulse Oximetry 93 Oxygen Delivery Method 04/27/23 05:13 Pulse Rate 100 H Respiratory Rate Blood Pressure Pulse Oximetry Oxygen Delivery Method Medical Decision Making Lab Data Lab results reviewed: Yes I reviewed the patient's lab results. 04/27/23 04:00 04/27/23 04:30 Labs: Lab Results 04/27/23 04/27/23 Range/Units 04:00 04:30 WBC 7.7 (4.5-11.0) X10^3/uL RBC 3.92 L (4.0-5.2) X10^6/uL Hgb 11.7 L (12.0-16.0) g/dL Hct 33.7 L (36-46) % MCV 86.0 (80-100) fL MCH 29.9 (26-34) PG MCHC 34.7 (30-36) % RDW 12.7 (11.6-14.8) % Plt Count 272 (150-400) X10^3/uL Neut % (Auto) 51.2 (50-75) % Lymph % (Auto) 39.1 (25-40) % [place] % (Auto) 7.0 (3-14) % Eos % (Auto) 1.4 L (2-4) % Baso % (Auto) 1.3 (0-2) % Neut # (Auto) 3900 (1361-8609) /uL Lymph # (Auto) 3000 (5958-2311) /uL [place] # (Auto) 500 (0-900) /uL Eos # (Auto) 100 (0-450) /uL Baso # (Auto) 100 (0-100) /uL D-Dimer < 215 (<500) ng/ml Sodium 138 (137-145) mmol/L Potassium 3.9 (3.4-5.1) mmol/L Chloride 106 (98-107) mmol/L Carbon Dioxide 23 (22-32) mmol/L BUN 9 (7-17) mg/dL Creatinine 0.57 (0.52-1.04) mg/dL Estimated GFR > 60 (>60) mL/min BUN/Creatinine Ratio 15.8 (6-22) Glucose 104 H (70-100) mg/dL Calcium 8.9 (8.4-10.2) mg/dL Total Bilirubin < 0.1 L (0.2-1.3) mg/dL AST 37 H (14-36) IU/L ALT 44 H (<35) IU/L Alkaline Phosphatase 62 (38-126) U/L Total Protein 7.7 (6.3-8.2) g/dL Albumin 4.4 (3.5-5.0) g/dL Globulin 3.3 (1.7-4.1) g/dL Albumin/Globulin Ratio 1.3 (1.0-2.8) Lipase 89 (23-300) U/L Serum , Qual Negative (Negative) Ethyl Alcohol < 10 ( - 10) mg/dL Imaging Data Chest x-ray: My Impression: No acute changes ECG Data Attestation: I personally reviewed and interpreted this ECG as follows: Interpretation: Sinus tachycardia Ventricular rate 117 Occasional PVCs Normal QRS Nonspecific ST T wave changes MDM Narrative Medical decision making narrative: EKG shows sinus tachycardia with occasional PVCs. She is not hypoxic. Chest x- ray is unremarkable. Low suspicion for ACS. D-dimer is negative she was given propranolol which did help her heart rate. She states she feels much better after this. She states she is been having symptoms like this off and on since her child was born. I recommended that she contact her primary provider for a follow-up to discuss the indications for a Holter monitor. Will discharge patient home with return precautions. She expressed understanding and agreement. Discharge Plan Departure Patient Disposition: Home Clinical Impression: Tachycardia Instructions: DI for Tachycardia Activity Restrictions/Additional Instructions: Recommend that you continue to take all of your medications as directed. I also recommend that you contact your primary doctor to discuss the indications for a Holter monitor. Return to the emergency department for new or worsening symptoms. Prescriptions: No Action gabapentin 300 mg capsule 300 mg PO TID hydroxyzine pamoate 25 mg capsule 25 mg PO BID sumatriptan succinate 100 mg tablet 100 mg PO DIRECTED promethazine 12.5 mg tablet 12.5 mg PO BID doxycycline monohydrate 100 mg capsule 100 mg PO DAILY mirtazapine 30 mg tablet 30 mg PO DAILY Migraine Relief 250-250-65 mg tablet 1 tab PO DIRECTED buprenorphine-naloxone 8-2 mg film 2 film sublingual BID Patient Comments: DISSOLVE TWO FILMS UNDER THE TONGUE TWICE DAILY WITHOUT CHEWING OR SWALLOWING cyclobenzaprine 10 mg tablet 20 mg PO BEDTIME Qty: 14 0RF Rx Instructions: 1 tab q8h day, 1-2 at hs prn spasm. Do not drive meloxicam 15 mg tablet 15 mg PO DAILY Qty: 14 0RF Rx Instructions: not with other NSAIDS lidocaine [Lidoderm] 5 % adhesive patch,medicated 2 patch TOP DAILY Qty: 30 0RF Rx Instructions: leave on most painful area for 12 hrs daily metoclopramide HCl 10 mg tablet 10 mg PO Q6H PRN (Reason: nausea and vomiting) Qty: 30 0RF furosemide [Lasix] 20 mg tablet 20 mg PO DAILY Qty: 7 0RF amoxicillin 500 mg capsule 500 mg PO BID Qty: 14 0RF cyclobenzaprine 10 mg tablet 10 mg PO TID PRN (Reason: muscle spasm) Qty: 14 0RF ketorolac 10 mg tablet 10 mg PO Q6H PRN (Reason: pain) Qty: 14 0RF Referrals: Mary Strickland ARNP [Primary Care Provider] - Stand Alone Forms: Patient Portal/API
[2023-04-27 04:08] LABS: Add Manual Diff / Slide Review NO; Basophils Absolute Auto 100 /uL (0-100); Basophils Percent Auto 1.3 % (0-2); Eosinophils Absolute Auto 100 /uL (0-450); Eosinophils Percent Auto 1.4 % (2-4); Hematocrit 33.7 % (36-46); Hemoglobin 11.7 g/dL (12.0-16.0); Lymphocytes Absolute Auto 3000 /uL (1100-4500); Lymphocytes Percent Auto 39.1 % (25-40); Mean Corpuscular HGB Conc 34.7 % (30-36); Mean Corpuscular Hemoglobin 29.9 PG (26-34); Monocytes Absolute Auto 500 /uL (0-900); Neutrophils Absolute Auto 3900 /uL (1500-7000); Neutrophils Percent Auto 51.2 % (50-75); Platelet Count 272 X10^3/uL (150-400); Red Blood Cell Count 3.92 X10^6/uL (4.0-5.2); Red Cell Distribution Width 12.7 % (11.6-14.8); White Blood Cell Count 7.7 X10^3/uL (4.5-11.0)
[2023-04-27 04:11] VITALS: PULSE 128; RESP 18
[2023-04-27 04:16] LABS: D Dimer < 215 ng/ml (<500)
[2023-04-27] MEDS: PROPRANOLOL 10 MG TABLET PO (04:27)
[2023-04-27 04:28] LABS: Pregnancy Test Serum,Qual Negative (Negative)
[2023-04-27 04:30] VITALS: PULSE 134; RESP 22
[2023-04-27 04:51] LABS: Alanine Aminotransferase 44 IU/L (<35); Albumin 4.4 g/dL (3.5-5.0); Albumin Globulin Ratio 1.3 (1.0-2.8); Alkaline Phosphatase 62 U/L (38-126); Aspartate Aminotransferase 37 IU/L (14-36); BUN Creatinine Ratio 15.8 (6-22); Bilirubin Total < 0.1 mg/dL (0.2-1.3); Blood Urea Nitrogen 9 mg/dL (7-17); Calcium 8.9 mg/dL (8.4-10.2); Carbon Dioxide 23 mmol/L (22-32); Chloride 106 mmol/L (98-107); Estimated Glomerular Filt Rate > 60 mL/min (>60); Globulin 3.3 g/dL (1.7-4.1); Glucose 104 mg/dL (70-100); HEMOLYSIS < 15 (0-50); Lipase 89 U/L (23-300); Potassium 3.9 mmol/L (3.4-5.1); Sodium 138 mmol/L (137-145); Total Protein 7.7 g/dL (6.3-8.2)
[2023-04-27 04:52] LABS: Ethanol (ETOH) < 10 mg/dL
[2023-04-27 05:00] VITALS: PULSE 109; RESP 22
[2023-04-27 05:05] VITALS: BP 131/86; PULSE 117; RESP 23; O2SAT 93
[2023-04-27 05:13] VITALS: PULSE 100
== END 2023-04-27 05:32 | disposition home or self-care (01) ==
PROVIDERS: Emergency Provider Emergency Medicine; PCP Nurse Practitioner Gerontology
DX: R00.0 Tachycardia, unspecified (principal); R00.2 Palpitations
CPT/HCPCS: 71045; 80053; 80320; 83690; 84703; 85025; 85379; 93005; 93010; 99283

== ENCOUNTER → 2023-05-22 18:03 | Outpatient (CLI) | payer OTHER, MEDICAID, SELFPAY | PROVIDERS: PCP Nurse Practitioner Gerontology; Visit Provider Nurse Practitioner Family | DX: J02.9 Acute pharyngitis, unspecified (principal) | CPT/HCPCS: 87070; 87147 ==

== ENCOUNTER → 2023-08-08 13:35 | Outpatient (CLI) | payer OTHER, MEDICAID, SELFPAY | LOC: CAR 13:37 | PROVIDERS: PCP Family Medicine; Referring Provider Family Medicine; Visit Provider Family Medicine | DX: R00.0 Tachycardia, unspecified (principal); I48.91 Unspecified atrial fibrillation; I48.92 Unspecified atrial flutter; Z87.42 Personal history of other diseases of the female genital tract; N93.9 Abnormal uterine and vaginal bleeding, unspecified | CPT/HCPCS: 93246 ==

== ENCOUNTER → 2023-08-09 15:09 | Outpatient (CLI) | payer OTHER, MEDICAID, SELFPAY ==
--- NOTE | 2023-08-09 15:10 | DI.US.S_ITS ---
PROCEDURE: US PELVIC COMPLETE INDICATIONS: DUB TECHNIQUE: Real-time scanning was performed of the pelvic organs, with image documentation. Additional endovaginal scanning was necessary due to incomplete visualization of the adnexal and endometrial structures by transabdominal scanning. COMPARISON: None. FINDINGS: Uterus: Uterus is anteverted and normal in size at 6.7 x 3.0 x 4.5 cm. The myometrium is homogeneous. The endometrium measures 4.2 mm combined thickness. Nonshadowing punctate echogenic focus associated with endocervical canal likely retained blood products. Ovaries: The right ovary measures 1.7 x 2.4 x 1.6 cm, with a calculated ovarian volume of 3.5 cc. The left ovary measures 1.9 x 1.3 x 2.4 cm, with a calculated ovarian volume of 3.1 cc. The ovaries have a normal sonographic appearance. Less than 12 follicles can be seen in each ovary. No adnexal masses are seen. Other: No pathologic free abdominal or pelvic fluid. IMPRESSION: 1. No source for menorrhagia identified. We strive to produce accurate, complete, and clear reports of imaging services. To assist us in improving patient care, this report was composed using standard report templates and voice recognition software. Therefore, it may contain abnormal punctuation, insertions and/or omissions. Occasional wrong-word or sound-alike substitutions may occur. Though we review the report and make efforts to correct it, we do recommend that the report be read carefully in proper context to recognize any text inaccuracies. Dictated by: Michael PETERSEN Interpreted: Gilberto Kelly MD on 08/09/2023 at 15:45 Transcribed by: ADAM on 08/09/2023 at 15:46 Approved by: Gilberto Kelly M.D. on 08/09/2023 at 16:17
== END ==
PROVIDERS: PCP Family Medicine; Referring Provider Family Medicine; Visit Provider Family Medicine
DX: N93.9 Abnormal uterine and vaginal bleeding, unspecified (principal)
CPT/HCPCS: 76830; 76856

== ENCOUNTER → 2023-08-21 15:46 | Outpatient (CLI) | payer OTHER, MEDICAID, SELFPAY ==
[2023-08-21 17:02] LABS: Hematocrit 31.7 % (36-46); Hemoglobin 10.8 g/dL (12.0-16.0); Mean Corpuscular HGB Conc 34.1 % (30-36); Mean Corpuscular Hemoglobin 29.6 PG (26-34); Mean Corpuscular Volume 86.8 fL (80-100); Platelet Count 246 X10^3/uL (150-400); Red Blood Cell Count 3.66 X10^6/uL (4.0-5.2); Red Cell Distribution Width 12.1 % (11.6-14.8)
[2023-08-21 17:21] LABS: HEMOLYSIS < 15 (0-50); Iron 78 ug/dL (37-170)
[2023-08-21 17:31] LABS: Alanine Aminotransferase 26 IU/L (<35); Albumin 4.1 g/dL (3.5-5.0); Albumin Globulin Ratio 1.3 (1.0-2.8); Alkaline Phosphatase 64 U/L (38-126); Aspartate Aminotransferase 29 IU/L (14-36); BUN Creatinine Ratio 14.5 (6-22); Bilirubin Total 0.3 mg/dL (0.2-1.3); Blood Urea Nitrogen 9 mg/dL (7-17); Calcium 8.5 mg/dL (8.4-10.2); Carbon Dioxide 22 mmol/L (22-32); Chloride 108 mmol/L (98-107); Estimated Glomerular Filt Rate > 60 mL/min (>60); Globulin 3.2 g/dL (1.7-4.1); Glucose 92 mg/dL (70-100); HEMOLYSIS < 15 (0-50); Potassium 3.9 mmol/L (3.4-5.1); Sodium 141 mmol/L (137-145); Total Protein 7.3 g/dL (6.3-8.2)
[2023-08-21 17:34] LABS: Percent Iron Saturation 33 % (15-50); Total Iron Binding Capacity 238 ug/dL (265-497); Transferrin 192 mg/dL (206-381)
[2023-08-21 17:36] LABS: NT-proBNP (BNP-Adult 18+) < 20 pg/mL (<125)
[2023-08-21 17:56] LABS: TSH w/ Reflex to FT4 1.64 uIU/mL (0.47-4.68)
[2023-08-21 18:02] LABS: Ferritin 69 ng/mL (6-137)
== END ==
PROVIDERS: PCP Family Medicine; Referring Provider Family Medicine; Visit Provider Family Medicine
DX: R00.0 Tachycardia, unspecified (principal); N93.9 Abnormal uterine and vaginal bleeding, unspecified; R79.89 Other specified abnormal findings of blood chemistry; Z87.42 Personal history of other diseases of the female genital tract
CPT/HCPCS: 36415; 80053; 82728; 83540; 83550; 83880; 84443; 85027

== ENCOUNTER 2023-08-29 11:40 | Emergency (ER) | payer OTHER, MEDICAID, SELFPAY ==
[2023-08-29] VITALS (12 sets, daily range): BP systolic 126–152; BP diastolic 65–100; PULSE 88–129; RESP 13–20; TEMP 36.6; O2SAT 95–98; BMI 29.2
--- NOTE | 2023-08-29 11:50 | DI.RAD.S_ITS ---
PROCEDURE: XR CHEST 1V INDICATIONS: Shortness of breath TECHNIQUE: One view of the chest was acquired. COMPARISON: [facility], CR, XR CHEST 1V, 04/27/2023, 4:23. FINDINGS: Surgical changes and devices: None. Lungs and pleura: Lungs are clear. No pleural effusions or pneumothorax. Mediastinum: Mediastinal contours appear normal. Heart size is normal. Bones and chest wall: No suspicious bony lesions. Overlying soft tissues appear unremarkable. IMPRESSION: No acute cardiopulmonary abnormality is seen. Dictated by: Zakiya Mejia M.D. on 08/29/2023 at 12:36 Approved by: Zakiya Mejia M.D. on 08/29/2023 at 12:36
[2023-08-29 12:10] LABS: INR 1.1 (0.9-1.3); Prothrombin Time 12.6 SECONDS (9.4-12.5)
[2023-08-29 12:13] LABS: Add Manual Diff / Slide Review NO; Basophils Absolute Auto 100 /uL (0-100); Basophils Percent Auto 1.1 % (0-2); Eosinophils Absolute Auto 100 /uL (0-450); Eosinophils Percent Auto 1.6 % (2-4); Hematocrit 32.9 % (36-46); Hemoglobin 11.2 g/dL (12.0-16.0); Lymphocytes Absolute Auto 2000 /uL (1100-4500); Lymphocytes Percent Auto 30.4 % (25-40); Mean Corpuscular HGB Conc 34.1 % (30-36); Mean Corpuscular Hemoglobin 29.2 PG (26-34); Mean Corpuscular Volume 85.5 fL (80-100); Monocytes Absolute Auto 500 /uL (0-900); Monocytes Percent Auto 6.7 % (3-14); Neutrophils Absolute Auto 4000 /uL (1500-7000); Neutrophils Percent Auto 60.2 % (50-75); Platelet Count 246 X10^3/uL (150-400); Red Blood Cell Count 3.85 X10^6/uL (4.0-5.2); Red Cell Distribution Width 12.1 % (11.6-14.8); White Blood Cell Count 6.7 X10^3/uL (4.5-11.0)
[2023-08-29 12:16] LABS: Lactate (Lactic Acid) 0.8 mmol/L (0.7-2.1)
[2023-08-29 12:19] LABS: Alanine Aminotransferase 40 IU/L (<35); Albumin 4.4 g/dL (3.5-5.0); Albumin Globulin Ratio 1.3 (1.0-2.8); Alkaline Phosphatase 72 U/L (38-126); Aspartate Aminotransferase 33 IU/L (14-36); BUN Creatinine Ratio 15.4 (6-22); Bilirubin Total 0.5 mg/dL (0.2-1.3); Blood Urea Nitrogen 8 mg/dL (7-17); Calcium 8.9 mg/dL (8.4-10.2); Carbon Dioxide 23 mmol/L (22-32); Chloride 110 mmol/L (98-107); Estimated Glomerular Filt Rate > 60 mL/min (>60); Globulin 3.5 g/dL (1.7-4.1); Glucose 104 mg/dL (70-100); HEMOLYSIS < 15 (0-50); Potassium 3.5 mmol/L (3.4-5.1); Sodium 138 mmol/L (137-145); Total Protein 7.9 g/dL (6.3-8.2)
[2023-08-29 12:29] LABS: NT-proBNP (BNP-Adult 18+) 330 pg/mL (<125); Troponin I < 0.012 ng/mL (0.01-0.034)
--- NOTE | 2023-08-29 14:28 | ED_ITS ---
HPI - SOB/Dyspnea General Chief Complaint: Shortness of Breath/Dyspnea Stated Complaint: chest pains, nausea, sob Time Seen by Provider: 08/29/23 14:06 Source: patient Mode of arrival: Ambulatory Limitations: no limitations History of Present Illness HPI Narrative: 38-year-old female with a history of sinus tachycardia of uncertain cause complaining of tachycardia dyspnea and chest feeling tight for more than 12 hours. She has not felt syncope, symptoms were not provoked by exertion. She has not had fevers she has not coughing. Patient does have a history of asthma no little bit of a wheeze she does not use energy drinks. She says she has had this intermittently since her child was born. Has been seen here previously for this I reviewed a couple of ED notes most recently April 27, she was treated with propranolol at that time. She has previously had normal thyroid functions and D-dimer. She has seen her primary care provider for this, has worn an ambulatory heart monitor and is scheduled for an echo. No alcohol use. Related Data Home Medications Medication Instructions Recorded Confirmed albuterol sulfate 90 mcg/actuation inhalation 07/26/23 08/16/23 aerosol inhaler cyclobenzaprine 5 mg tablet mg PO 07/26/23 08/16/23 escitalopram oxalate 20 mg tablet 20 mg PO DAILY 07/26/23 08/16/23 fluticasone propionate 220 inhalation 07/26/23 08/16/23 mcg/actuation HFA aerosol inhaler mirtazapine 15 mg tablet 15 mg PO ONCE PM 07/26/23 08/16/23 gabapentin 300 mg capsule 300 mg PO 3XD 08/16/23 08/16/23 Previous Rx's Medication Instructions Recorded metoprolol succinate 25 mg 12.5 mg (1/2 x 25 mg) PO DAILY #20 08/29/23 tablet,extended release 24 hr tabs (Toprol XL) Allergies Allergy/AdvReac Type Severity Reaction Status Date / Time codeine Allergy Verified 08/29/23 11:51 ondansetron [From Zofran] Allergy Verified 08/29/23 11:51 Sulfa (Sulfonamide Allergy Verified 08/29/23 11:51 Antibiotics) Patient History Medical History (Updated 08/29/23 @ 15:39 by Abdelrahman Alejandra MD) LGSIL on Pap smear of cervix Elevated LFTs Factor V Leiden History of abnormal cervical Pap smear Episode of heavy vaginal bleeding Tachycardia Chronic back pain Migraines Surgical History No history of previous surgery Social History Smoking Status: Current every day smoker Smoking Status: Current every day smoker tobacco type: vaping alcohol intake frequency: 0-2 drinks per day Substance Use Type: marijuana Exam Initial Vital Signs Initial Vital Signs: Vital Signs Temperature 97.8 F 08/29/23 11:45 Pulse Rate 129 H 08/29/23 11:45 Respiratory Rate 18 08/29/23 11:45 Blood Pressure 152/100 H 08/29/23 11:45 Pulse Oximetry 95 08/29/23 11:45 Oxygen Delivery Method Room Air 08/29/23 11:45 Const Other: No acute distress speaking in full sentences HENMT Head: normocephalic, atraumatic and other (Brown mucosa is moist) Neck Other: No adenopathy, no thyromegaly Resp Effort & Inspection: normal respiratory effort Auscultation: clear to auscultation bilaterally Cardio Other: Regular rhythm rate, tachycardic, no murmur no gallop Neuro Other: Alert oriented and appropriate no motor deficit Course Orders Ordered: ED Orders 08/29/23 11:50 XR chest 1V Stat EKG-12 Lead Stat Measure peak expiratory flow ONCE RT Consult Eval and Treat NOW 08/29/23 11:54 Complete Blood Count AUTO DIFF Stat Comprehensive Metabolic Panel Stat Lactate (Lactic Acid) Stat NT-proBNP (BNP-Adult 18+) Stat Prothrombin Time INR Stat Troponin I Stat Discontinued Medications Metoprolol Tartrate (Metoprolol Ir 25 Mg Tablet) 25 mg PO NOW ONE Stop: 08/29/23 14:28 Last Admin: 08/29/23 14:35 Dose: 25 mg Documented By: STEVE Reevaluation(s) Reevaluation #1: Heart rate is diminished some and patient reports feeling better after receiving metoprolol. We discussed continuing his as an outpatient medication. The patient would like to try this as she reports she has been symptomatic on a daily basis. She understands that she may have fatigue and feeling faint at if she is having adverse effects she will need to discontinue it. Also understands that a strongly recommended she follow up soon with her primary care provider for recheck. Vital Signs Vital signs: Vital Signs - 8 hr 08/29/23 11:45 08/29/23 11:48 08/29/23 11:49 Temperature 97.8 F Pulse Rate 129 H 109 H 108 H Respiratory Rate 18 16 14 Blood Pressure 152/100 H Pulse Oximetry 95 96 96 Oxygen Delivery Method Room Air 08/29/23 11:49 08/29/23 12:00 08/29/23 12:00 Temperature Pulse Rate 109 H Respiratory Rate 18 Blood Pressure 152/100 H 131/82 Pulse Oximetry 96 Oxygen Delivery Method Room Air 08/29/23 12:30 08/29/23 12:30 08/29/23 13:00 Temperature Pulse Rate 97 H 99 H Respiratory Rate 17 18 Blood Pressure 133/83 Pulse Oximetry 95 95 Oxygen Delivery Method Room Air 08/29/23 13:00 08/29/23 13:30 08/29/23 13:30 Temperature Pulse Rate 88 Respiratory Rate 13 Blood Pressure 126/72 135/70 Pulse Oximetry 98 Oxygen Delivery Method 08/29/23 14:00 08/29/23 14:01 08/29/23 14:01 Temperature Pulse Rate 97 H 92 H Respiratory Rate 20 16 Blood Pressure 134/98 H Pulse Oximetry 95 96 Oxygen Delivery Method 08/29/23 14:11 08/29/23 14:11 08/29/23 15:00 Temperature Pulse Rate 93 H 90 Respiratory Rate 14 Blood Pressure 143/86 H Pulse Oximetry 96 Oxygen Delivery Method Room Air 08/29/23 15:11 Temperature Pulse Rate Respiratory Rate Blood Pressure 139/65 Pulse Oximetry Oxygen Delivery Method MDM - SOB/Dyspnea Medical Records Medical records narrative: Reviewed a couple of previous ED visits where she had this complaint, reviewed previous labs indicating normal D-dimer and normal TSH Lab Data Lab results narrative: CBC with diff and CMP are unremarkable troponin is normal, proBNP is elevated. It is more than twice normal 08/29/23 11:54 08/29/23 11:54 Labs: Lab Results 08/29/23 Range/Units 11:54 WBC 6.7 (4.5-11.0) X10^3/uL RBC 3.85 L (4.0-5.2) X10^6/uL Hgb 11.2 L (12.0-16.0) g/dL Hct 32.9 L (36-46) % MCV 85.5 (80-100) fL MCH 29.2 (26-34) PG MCHC 34.1 (30-36) % RDW 12.1 (11.6-14.8) % Plt Count 246 (150-400) X10^3/uL Neut % (Auto) 60.2 (50-75) % Lymph % (Auto) 30.4 (25-40) % [place] % (Auto) 6.7 (3-14) % Eos % (Auto) 1.6 L (2-4) % Baso % (Auto) 1.1 (0-2) % Neut # (Auto) 4000 (2535-3895) /uL Lymph # (Auto) 2000 (2758-4621) /uL [place] # (Auto) 500 (0-900) /uL Eos # (Auto) 100 (0-450) /uL Baso # (Auto) 100 (0-100) /uL PT 12.6 H (9.4-12.5) SECONDS INR 1.1 (0.9-1.3) Sodium 138 (137-145) mmol/L Potassium 3.5 (3.4-5.1) mmol/L Chloride 110 H (98-107) mmol/L Carbon Dioxide 23 (22-32) mmol/L BUN 8 (7-17) mg/dL Creatinine 0.52 (0.52-1.04) mg/dL Estimated GFR > 60 (>60) mL/min BUN/Creatinine Ratio 15.4 (6-22) Glucose 104 H (70-100) mg/dL Lactate 0.8 (0.7-2.1) mmol/L Calcium 8.9 (8.4-10.2) mg/dL Total Bilirubin 0.5 (0.2-1.3) mg/dL AST 33 (14-36) IU/L ALT 40 H (<35) IU/L Alkaline Phosphatase 72 (38-126) U/L Troponin I < 0.012 (0.01-0.034) ng/mL NT-Pro-B Natriuret Pep 330 H (<125) pg/mL Total Protein 7.9 (6.3-8.2) g/dL Albumin 4.4 (3.5-5.0) g/dL Globulin 3.5 (1.7-4.1) g/dL Albumin/Globulin Ratio 1.3 (1.0-2.8) Imaging Data Chest x-ray: My Impression: Independently reviewed portable chest, no acute findings Radiologist's Impression: Reviewed radiology report, no acute ECG Data Interpretation: ECG shows sinus tachycardia at 111 pr interval is 136 QTC is [address] segment changes no evidence of chamber hypertrophy normal intervals Treatment and disposition Shared decision making:: Was utilized in decision to start metoprolol MDM Narrative Medical decision making narrative: 30-year-old female presenting with tachycardia shortness of breath and chest tightness. She has not hypoxic or hypotensive, does not have heart failure on her chest x-ray and her lungs are clear. I do not think he is in heart failure. No ischemic changes and normal troponin. I do not think this is ischemic. She does not appear to be infected his previously had a normal TSH in the normal D- dimer I did not repeat these but considered and do not think that she has pulmonary embolism or hyperthyroidism. Ultimately I am not sure why she is tachycardic. She does not endorse using substances that would be expected to make her tachycardic. She is interested in medication treatment for symptom control, I ordered a low dose of Toprol-XL in the hopes that this will be helpful. She has an appointment coming up with her primary care provider which I recommended she keep. Discharge Plan Departure Patient Disposition: Home Clinical Impression: Inappropriate sinus tachycardia Activity Restrictions/Additional Instructions: Evaluation today is reassuring. I am not sure what is causing your rapid heart rate but I think we can try you on a low dose of a beta-brisa to see if that helps your symptoms. I recommend you follow up soon with her primary care provider for a recheck. I provided a small dose of metoprolol that you can take daily in the morning. If you find yourself having increasing shortness of breath fatigue or fainting discontinue the metoprolol and recheck with either your primary care provider in the emergency department. Continue other previous home medications. Prescriptions: New metoprolol succinate [Toprol XL] 25 mg tablet extended release 24 hr 12.5 mg PO DAILY Qty: 20 0RF No Action gabapentin 300 mg capsule 300 mg PO 3XD fluticasone propionate 220 mcg/actuation HFA aerosol inhaler inhalation cyclobenzaprine 5 mg tablet PO escitalopram oxalate 20 mg tablet 20 mg PO DAILY mirtazapine 15 mg tablet 15 mg PO ONCE PM albuterol sulfate 90 mcg/actuation HFA aerosol inhaler inhalation Referrals: Roseann Delarosa MD [Primary Care Provider] - Stand Alone Forms: Patient Portal/API
[2023-08-29] MEDS: METOPROLOL IR 25 MG TABLET PO (14:35)
== END 2023-08-29 15:46 | disposition home or self-care (01) ==
PROVIDERS: Emergency Provider Emergency Medicine; PCP Family Medicine
DX: I47.11 Inappropriate sinus tachycardia, so stated (principal); R06.00 Dyspnea, unspecified; R07.9 Chest pain, unspecified
CPT/HCPCS: 36415; 71045; 80053; 83605; 83880; 84484; 85025; 85610; 93005; 99284

== ENCOUNTER 2023-08-31 18:35 | Emergency (ER) | payer OTHER, MEDICAID, SELFPAY ==
[2023-08-31] VITALS (11 sets, daily range): BP systolic 134–169; BP diastolic 79–105; PULSE 103–144; RESP 14–63; TEMP 36.7–37.4; O2SAT 96–100; BMI 29.2
--- NOTE | 2023-08-31 18:45 | DI.RAD.S_ITS ---
PROCEDURE: XR CHEST 1V INDICATIONS: chest pain TECHNIQUE: One view of the chest was acquired. COMPARISON: [facility], CR, XR CHEST 1V, 08/29/2023, 11:59. FINDINGS: Surgical changes and devices: None. Lungs and pleura: Lungs are clear. No pleural effusions or pneumothorax. Mediastinum: Mediastinal contours appear normal. Heart size is normal. Bones and chest wall: No suspicious bony lesions. Overlying soft tissues appear unremarkable. IMPRESSION: Stable radiographic evaluation of the chest without acute cardiopulmonary abnormalities or focal airspace disease. Dictated by: Santos Orozco M.D. on 08/31/2023 at 19:23 Approved by: Santos Orozco M.D. on 08/31/2023 at 19:24
[2023-08-31 19:08] LABS: Add Manual Diff / Slide Review NO; Basophils Absolute Auto 100 /uL (0-100); Basophils Percent Auto 0.7 % (0-2); Eosinophils Absolute Auto 0 /uL (0-450); Eosinophils Percent Auto 0.1 % (2-4); Hematocrit 33.3 % (36-46); Hemoglobin 11.6 g/dL (12.0-16.0); INR 1.2 (0.9-1.3); Lymphocytes Absolute Auto 1300 /uL (1100-4500); Lymphocytes Percent Auto 16.7 % (25-40); Mean Corpuscular HGB Conc 34.8 % (30-36); Mean Corpuscular Hemoglobin 29.2 PG (26-34); Mean Corpuscular Volume 83.8 fL (80-100); Monocytes Absolute Auto 500 /uL (0-900); Monocytes Percent Auto 5.6 % (3-14); Neutrophils Absolute Auto 6200 /uL (1500-7000); Neutrophils Percent Auto 76.9 % (50-75); Platelet Count 283 X10^3/uL (150-400); Prothrombin Time 13.4 SECONDS (9.4-12.5); Red Blood Cell Count 3.97 X10^6/uL (4.0-5.2); Red Cell Distribution Width 12.1 % (11.6-14.8); White Blood Cell Count 8.1 X10^3/uL (4.5-11.0)
[2023-08-31 19:11] LABS: PTT Partial Thromboplastin Tim 34 SECONDS (25.1-36.5)
[2023-08-31 19:14] LABS: Alanine Aminotransferase 34 IU/L (<35); Albumin 4.7 g/dL (3.5-5.0); Albumin Globulin Ratio 1.2 (1.0-2.8); Alkaline Phosphatase 71 U/L (38-126); Aspartate Aminotransferase 28 IU/L (14-36); BUN Creatinine Ratio 11.3 (6-22); Bilirubin Total 0.5 mg/dL (0.2-1.3); Blood Urea Nitrogen 6 mg/dL (7-17); Calcium 9.1 mg/dL (8.4-10.2); Carbon Dioxide 20 mmol/L (22-32); Chloride 108 mmol/L (98-107); Creatine Kinase 83 U/L (30-135); Estimated Glomerular Filt Rate > 60 mL/min (>60); Globulin 3.8 g/dL (1.7-4.1); Glucose 107 mg/dL (70-100); HEMOLYSIS < 15 (0-50); Lipase 90 U/L (23-300); Magnesium 1.8 mg/dL (1.6-2.3); Potassium 3.1 mmol/L (3.4-5.1); Sodium 140 mmol/L (137-145); Total Protein 8.5 g/dL (6.3-8.2)
[2023-08-31 19:26] LABS: Troponin I < 0.012 ng/mL (0.01-0.034)
[2023-08-31] MEDS: ASPIRIN 81 MG CHEW TAB 324 MG PO (19:35)
--- NOTE | 2023-08-31 19:37 | ED_ITS ---
HPI - Chest Pain General Chief Complaint: Chest Pain Stated Complaint: chest pain/toperol isnt helping/post visit T-2 Time Seen by Provider: 08/31/23 19:22 Source: patient Mode of arrival: Ambulatory Limitations: no limitations History of Present Illness HPI narrative: 38-year-old female with history of tachycardia, factor 5 Leiden, patient is on Suboxone daily recently started on metoprolol has had chest pain she describes a substernal for a year but in the last few weeks has been more persistent painful and she has chronic tachycardia. Patient states she did have a cough that started last week no productive sputum. No fevers, no cold God just and symptoms. She has felt sweaty. She short of breath. She would nausea when she was seen here on the . She has not had any vomiting. She states normal bowel movements normal urination no swelling of extremities. She has been on Suboxone for some time. Metoprolol was just started. She takes Flexeril PRN. She has 2 inhalers but states she has been told she does not have asthma. Surgeries include tubal ligation and a complication with bleeding afterwards with return to the OR. Allergic to sulfa and Zofran. Vapes, denies alcohol or recreational drugs. She has never had an EGD, she has been in touch with the primary care she has an echo scheduled for the . Related Data Home Medications Medication Instructions Recorded Confirmed albuterol sulfate 90 mcg/actuation inhalation 07/26/23 08/16/23 aerosol inhaler cyclobenzaprine 5 mg tablet mg PO 07/26/23 08/16/23 escitalopram oxalate 20 mg tablet 20 mg PO DAILY 07/26/23 08/16/23 fluticasone propionate 220 inhalation 07/26/23 08/16/23 mcg/actuation HFA aerosol inhaler mirtazapine 15 mg tablet 15 mg PO ONCE PM 07/26/23 08/16/23 gabapentin 300 mg capsule 300 mg PO 3XD 08/16/23 08/16/23 Previous Rx's Medication Instructions Recorded metoprolol succinate 25 mg 12.5 mg (1/2 x 25 mg) PO DAILY #20 08/29/23 tablet,extended release 24 hr tabs (Toprol XL) Allergies Allergy/AdvReac Type Severity Reaction Status Date / Time codeine Allergy Verified 08/29/23 11:51 ondansetron [From Zofran] Allergy Verified 08/29/23 11:51 Sulfa (Sulfonamide Allergy Verified 08/29/23 11:51 Antibiotics) Review of Systems Review of Systems ROS Unobtainable: All systems reviewed & are unremarkable except as noted in HPI and below Patient History Medical History LGSIL on Pap smear of cervix Elevated LFTs Factor V Leiden History of abnormal cervical Pap smear Episode of heavy vaginal bleeding Tachycardia Chronic back pain Migraines Surgical History No history of previous surgery Social History Smoking Status: Current every day smoker Smoking Status: Current every day smoker tobacco type: vaping alcohol intake frequency: 0-2 drinks per day Substance Use Type: marijuana Exam Narrative Exam Narrative: GENERAL: Alert and oriented x three, well-appearing female in mild distress HEENT: Head normocephalic, atraumatic, EOMI, pupils reactive, face symmetric, moist mucous membranes NECK: Supple, full range of motion CARDIOVASCULAR: Tachycardic but Regular rate and rhythm without murmurs, rubs or gallops. No JVD. No edema. RESPIRATORY: Breath sounds equal bilaterally, no wheezes rales or rhonchi. ABDOMEN: Soft, nontender. Normoactive bowel sounds all 4 quadrants. No guarding or rebound, rigidity, no mass : No CVA tenderness EXTREMITIES: Normal range of motion, no clubbing or edema. Neurovascularly intact. Normal gait. NEUROLOGICAL: Cranial nerves II through XII grossly intact. Moving all extremities SKIN: Warm, dry, no petechiae, no rashes or lesions. Initial Vital Signs Initial Vital Signs: Vital Signs Temperature 98.4 F 08/31/23 18:43 Pulse Rate 128 H 08/31/23 18:43 Respiratory Rate 22 08/31/23 18:43 Blood Pressure 169/105 H 08/31/23 18:43 Pulse Oximetry 98 08/31/23 18:43 Oxygen Delivery Method Room Air 08/31/23 18:43 Course Orders Ordered: ED Orders 08/31/23 21:36 CT angio chest PE protocol Stat Discontinued Medications Aspirin (Aspirin 81 Mg Chew Tab) 324 mg PO NOW ONE Stop: 08/31/23 19:32 Last Admin: 08/31/23 19:35 Dose: 324 mg Documented By: AB Potassium Chloride (Potassium Chloride 20 Meq Tab) 40 meq PO NOW ONE Stop: 08/31/23 20:52 Last Admin: 08/31/23 20:55 Dose: 40 meq Documented By: AB Vital Signs Vital signs: Vital Signs - 8 hr 08/31/23 23:04 Temperature 98.1 F MDM - Chest Pain Lab Data 08/31/23 18:55 08/31/23 18:55 Labs: Lab Results 08/31/23 08/31/23 Range/Units 18:55 19:45 WBC 8.1 (4.5-11.0) X10^3/uL RBC 3.97 L (4.0-5.2) X10^6/uL Hgb 11.6 L (12.0-16.0) g/dL Hct 33.3 L (36-46) % MCV 83.8 (80-100) fL MCH 29.2 (26-34) PG MCHC 34.8 (30-36) % RDW 12.1 (11.6-14.8) % Plt Count 283 (150-400) X10^3/uL Neut % (Auto) 76.9 H (50-75) % Lymph % (Auto) 16.7 L (25-40) % [place] % (Auto) 5.6 (3-14) % Eos % (Auto) 0.1 L (2-4) % Baso % (Auto) 0.7 (0-2) % Neut # (Auto) 6200 (5634-3657) /uL Lymph # (Auto) 1300 (1717-7846) /uL [place] # (Auto) 500 (0-900) /uL Eos # (Auto) 0 (0-450) /uL Baso # (Auto) 100 (0-100) /uL PT 13.4 H (9.4-12.5) SECONDS INR 1.2 (0.9-1.3) APTT 34 (25.1-36.5) SECONDS D-Dimer < 215 (<500) ng/ml Sodium 140 (137-145) mmol/L Potassium 3.1 L (3.4-5.1) mmol/L Chloride 108 H (98-107) mmol/L Carbon Dioxide 20 L (22-32) mmol/L BUN 6 L (7-17) mg/dL Creatinine 0.53 (0.52-1.04) mg/dL Estimated GFR > 60 (>60) mL/min BUN/Creatinine Ratio 11.3 (6-22) Glucose 107 H (70-100) mg/dL Calcium 9.1 (8.4-10.2) mg/dL Magnesium 1.8 (1.6-2.3) mg/dL Total Bilirubin 0.5 (0.2-1.3) mg/dL AST 28 (14-36) IU/L ALT 34 (<35) IU/L Alkaline Phosphatase 71 (38-126) U/L Total Creatine Kinase 83 (30-135) U/L Troponin I < 0.012 (0.01-0.034) ng/mL Total Protein 8.5 H (6.3-8.2) g/dL Albumin 4.7 (3.5-5.0) g/dL Globulin 3.8 (1.7-4.1) g/dL Albumin/Globulin Ratio 1.2 (1.0-2.8) Lipase 90 (23-300) U/L U Opiates 300ng/mL cut Negative (Negative) Ur Oxycodone Screen Negative (Negative) Urine Methadone Screen Negative (Negative) Ur Barbiturates Screen Negative (Negative) U Tricyclic Antidepress Negative (Negative) Ur Phencyclidine Scrn Negative (Negative) Ur Amphetamines Screen Negative (Negative) U Methamphetamines Scrn Negative (Negative) Ur MDMA Scrn (Ecstasy) Negative (Negative) U Benzodiazepines Scrn Negative (Negative) Urine Cocaine Screen Negative (Negative) U Marijuana (THC) Screen Negative (Negative) Urine pH Normal (Normal) Urine Specific [place] Normal (Normal) Ur Creatinine Normal (Normal) Imaging Data Chest x-ray: Radiologist's Impression: Close Chest X-Ray (Signed) Santos Orozco - 08/31/23 Chest X-Ray (Signed) Zakiya Mejia - 08/29/23 Pelvis Ultrasound (Signed) Gilberto Kelly - 08/09/23 Chest X-Ray (Signed) Reinier Liz - 04/27/23 Chest X-Ray (Signed) Belinda Reese - 08/12/22 Abdomen/Pelvis CT (Signed) Trey Barrientos - 03/07/[address] (Signed) Ever Spence - 03/07/22 Chest X-Ray (Signed) Axel Maciasderic - 03/07/22 Chest X-Ray (Signed) Geovani Fierro - 05/05/21 Knee X-Ray (Signed) Elliott Corona - 02/26/21 Chest X-Ray (Signed) Barak Starkstephania - 01/13/21 Ankle X-Ray (Signed) Ellis Ibrahim - 11/05/[address] (Signed) JuanKira germain - 05/18/[address] (Signed) Juan,Kira - 05/18/19 Launch?Image [address] [address] XRay Report Signed Patient: Helio Carrillo MR#: [id number] : 1985 Acct:[id number] Age/Sex: 38 / F Date of Service: 08/31/23 Loc: ED Accession Number: [id number] Procedure: XR chest 1V Ordering Provider: No Friedman D.O. PROCEDURE: XR CHEST 1V INDICATIONS: chest pain TECHNIQUE: One view of the chest was acquired. COMPARISON: [facility], SILAS, XR CHEST 1V, 08/29/2023, 11:59. FINDINGS: Surgical changes and devices: None. Lungs and pleura: Lungs are clear. No pleural effusions or pneumothorax. Mediastinum: Mediastinal contours appear normal. Heart size is normal. Bones and chest wall: No suspicious bony lesions. Overlying soft tissues appear unremarkable. IMPRESSION: Stable radiographic evaluation of the chest without acute cardiopulmonary abnormalities or focal airspace disease. Dictated by: Santos Orozco M.D. on 08/31/2023 at 19:23 Approved by: Santos Oorzco M.D. on 08/31/2023 at 19:24 CT scan - chest: Radiologist's Impression: [address] [address] [address] Scan Report Signed Patient: Helio Carrillo MR#: [id number] : 1985 Acct:[id number] Age/Sex: 38 / F Date of Service: 08/31/23 Loc: ED Accession Number: [id number] Procedure: CT angio chest PE protocol Ordering Provider: No Friedman D.O. 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 3-dimensional maximum intensity projection (MIP) coronal and sagittal reformats were then acquired through the thorax. For radiation dose reduction, the following was used: automated exposure control, adjustment of mA and/or kV according to patient size. COMPARISON: [facility], CT, CT ANGIO CHEST PE, 03/07/2022, 23:18. [facility], CR, XR CHEST 1V, 08/29/2023, 11:59. [facility], CR, XR CHEST 1V, 08/31/2023, 19:03. FINDINGS: Image quality: The inferior-most portion of the lungs are not included within the field of view of this study. Limited by bolus timing. Pulmonary arteries: The bolus of the contrast injection is suboptimal. The main pulmonary artery measures approximately 140 Hounsfield units. Pulmonary artery densities are greater than 250 Hounsfield units are considered to be ideal for evaluation of pulmonary embolism. However, no large or central pulmonary emboli are seen on these images. No pulmonary emboli are seen more distally, although sensitivity for detection of such is limited on this study. Lower Neck: No enlarged lymph nodes. Thyroid: No thyroid nodules which require sonographic follow up, per consensus guidelines. Axillae: No enlarged lymph nodes. Chest Wall: Unremarkable. Bones: Unremarkable. Lungs and Pleura: No pneumothorax or pleural effusions. No consolidation or suspicious nodules. Heart: Heart size is normal. No pericardial effusion. Thoracic Vessels: No aortic aneurysm. Mediastinum and Allie: No enlarged lymph nodes. Esophagus: No wall thickening. No hiatal hernia. Upper Abdomen: Visualized upper abdomen solid organs and bowel loops appear normal. IMPRESSION: No large or central pulmonary embolism can be seen. No acute cardiopulmonary process. Dictated by: Michael Rojo M.D. on 08/31/2023 at 21:27 Approved by: Michael Rojo M.D. on 08/31/2023 at 21:30 ECG Data Attestation: I personally reviewed and interpreted this ECG as follows: Prior ECG tracings: available for review Interpretation: Sinus tach rate of 108, SC 136 QRS 80 QTC [address]. No acute ST changes appreciated. A nonspecific change. Priors from 08/29/2023 nonspecific. MDM Narrative Medical decision making narrative: 38-year-old female with complaint of chest pain for a year worse in the past but weak cough, sweats but nonproductive. Patient defers any viral testing. She is tachycardic here in the department afebrile, labs show normal white count hemoglobin of 11 platelets 283 INR is 1.2. Sodium is 140 sodium 3.1, normal renal function BUN 6 glucose of 107 Mag is 1.8. LFTs are negative troponins negative with longstanding persistent chest pain that is never resolved felt unlikely to be cardiac. Chest x-ray is negative today as well as several days ago. Did have a dimer today which was negative. Patient was given oral potassium supplementation. She is also recently been started on Toprol 12.5 mg daily but had her 1st dose today. She states she has been hydrating defers any fluids. She is scheduled to have an echo in the , she has never had an EGD. Discussed starting a CT of the chest is sounds like she has never had this as well. Dimer is overall reassuring but after discussion with patient it was offered. Tachycardia could be exacerbated by her low potassium. She would dose of oral potassium after some discussion she elects to pursue CT chest. CT angio was negative for acute change, no pneumonia, no structural changes. No pulmonary emboli. Patient continues to be tachycardic but felt appropriate for discharge he has had these for some time and has a appropriate follow up with Cardiology. She has had a Holter monitor. Discharge Plan Departure Patient Disposition: Home Clinical Impression: Chest pain, Tachycardia Activity Restrictions/Additional Instructions: Follow-up with your physician for recheck. Your potassium was low it has been replaced today but follow up to make sure your labs continue to stay appropriate. I think it is very appropriate to have an echo or ultrasound of your heart what sounds like you are scheduled for on the 10 of September. If cardiac workup is not helpful maybe useful to obtain an EGD at some point although this would be less likely source for your tachycardia. Please return for new or worsening symptoms, passing out, increasing shortness of breath, increasing chest pain, new swelling of extremities, persistent vomiting or other new or concerning changes Prescriptions: No Action gabapentin 300 mg capsule 300 mg PO 3XD fluticasone propionate 220 mcg/actuation HFA aerosol inhaler inhalation cyclobenzaprine 5 mg tablet PO escitalopram oxalate 20 mg tablet 20 mg PO DAILY mirtazapine 15 mg tablet 15 mg PO ONCE PM albuterol sulfate 90 mcg/actuation HFA aerosol inhaler inhalation metoprolol succinate [Toprol XL] 25 mg tablet extended release 24 hr 12.5 mg PO DAILY Qty: 20 0RF Referrals: Roseann Delarosa MD [Primary Care Provider] - Stand Alone Forms: Patient Portal/API
[2023-08-31 20:02] LABS: UR Morphine/Opiate cutoff 300 Negative (Negative); Ur Creatinine Normal (Normal); Ur Specific Gravity Normal (Normal); Urine Amphetamines Negative (Negative); Urine Barbiturates Negative (Negative); Urine Benzodiazepines Negative (Negative); Urine Cocaine Negative (Negative); Urine MDMA Negative (Negative); Urine Methadone Negative (Negative); Urine Methamphetamines Negative (Negative); Urine Oxycodone Negative (Negative); Urine Phencyclidine Negative (Negative); Urine Tetrahydrocannabinol Negative (Negative); Urine Tricyclic Antidepressant Negative (Negative); Urine pH Normal (Normal)
[2023-08-31 20:50] LABS: D Dimer < 215 ng/ml (<500)
[2023-08-31] MEDS: POTASSIUM CHLORIDE 20 MEQ TAB 40 MEQ PO (20:55)
--- NOTE | 2023-08-31 21:36 | DI.CT.S_ITS ---
PROCEDURE: CT ANGIO CHEST PE PROTOCOL INDICATIONS: chest pain prison, tachycardia TECHNIQUE: After the administration of intravenous contrast, 2 mm thick sections acquired from the pulmonary apices to the posterior costophrenic angles. 3-dimensional maximum intensity projection (MIP) coronal and sagittal reformats were then acquired through the thorax. For radiation dose reduction, the following was used: automated exposure control, adjustment of mA and/or kV according to patient size. COMPARISON: [facility], CT, CT ANGIO CHEST PE, 03/07/2022, 23:18. [facility], CR, XR CHEST 1V, 08/29/2023, 11:59. [facility], CR, XR CHEST 1V, 08/31/2023, 19:03. FINDINGS: Image quality: The inferior-most portion of the lungs are not included within the field of view of this study. Limited by bolus timing. Pulmonary arteries: The bolus of the contrast injection is suboptimal. The main pulmonary artery measures approximately 140 Hounsfield units. Pulmonary artery densities are greater than 250 Hounsfield units are considered to be ideal for evaluation of pulmonary embolism. However, no large or central pulmonary emboli are seen on these images. No pulmonary emboli are seen more distally, although sensitivity for detection of such is limited on this study. Lower Neck: No enlarged lymph nodes. Thyroid: No thyroid nodules which require sonographic follow up, per consensus guidelines. Axillae: No enlarged lymph nodes. Chest Wall: Unremarkable. Bones: Unremarkable. Lungs and Pleura: No pneumothorax or pleural effusions. No consolidation or suspicious nodules. Heart: Heart size is normal. No pericardial effusion. Thoracic Vessels: No aortic aneurysm. Mediastinum and Allie: No enlarged lymph nodes. Esophagus: No wall thickening. No hiatal hernia. Upper Abdomen: Visualized upper abdomen solid organs and bowel loops appear normal. IMPRESSION: No large or central pulmonary embolism can be seen. No acute cardiopulmonary process. Dictated by: Michael Rojo M.D. on 08/31/2023 at 21:27 Approved by: Michael Rojo M.D. on 08/31/2023 at 21:30
== END 2023-08-31 23:04 | disposition home or self-care (01) ==
PROVIDERS: Emergency Provider Emergency Medicine; PCP Family Medicine
DX: R07.9 Chest pain, unspecified (principal); R00.0 Tachycardia, unspecified
CPT/HCPCS: 36415; 71045; 71275; 80053; 80305; 82550; 83690; 83735; 84484; 85025; 85379; 85610; 85730; 93005; 99284; Q9967

== ENCOUNTER → 2024-04-22 16:13 | Outpatient (CLI) | payer OTHER, MEDICAID, SELFPAY ==
[2024-04-22 17:24] LABS: Ur Creatinine Normal (Normal); Ur Specific Gravity Normal (Normal); Urine Amphetamines Negative (Negative); Urine Barbiturates Negative (Negative); Urine Benzodiazepines Negative (Negative); Urine Cocaine Negative (Negative); Urine MDMA Negative (Negative); Urine Methadone Negative (Negative); Urine Methamphetamines Negative (Negative); Urine Opiates Negative (Negative); Urine Oxycodone Positive (Negative); Urine Phencyclidine Negative (Negative); Urine THC Negative (Negative); Urine Tricyclic Antidepressant Negative (Negative); Urine pH Normal (Normal)
== END ==
PROVIDERS: PCP Family Medicine; Referring Provider Nurse Practitioner Psychiatric/Mental Health; Visit Provider Nurse Practitioner Psychiatric/Mental Health
DX: F11.21 Opioid dependence, in remission (principal); Z79.899 Other long term (current) drug therapy
CPT/HCPCS: 80305